=== PATIENT | female | born 1965 | race Caucasian/White ===

== ENCOUNTER 2020-12-30 20:10 | Inpatient (IN) | payer MEDICAID ==
[~2020-12-30] VITALS: Ht 162.6 cm; Wt 114.1 kg
[2020-12-30 23:15] VITALS: BP 138/82
--- NOTE | 2020-12-30 23:15 | NUR ---
received pt from [facility]. oriented to room and routine, received report by telephone from perlita OG, pT SOB, O2 12L N/C. WAITING FRO DR. ALEJO TO SEE PT. Addendum: 12/31/20 at 0201 by Jean Paul Sarah RN Amended: Links added.
--- NOTE | 2020-12-30 23:42 | NUR ---
Dr Sibley in room to assess pt. med rec done by LILIAN meier. waiting for orders Addendum: 12/30/20 at 2342 by Jean Paul Sarah RN Amended: Links added.
[2020-12-30] MEDS ORDERED: HYDR-3965 PO (23:43)
[2020-12-30] MEDS ORDERED: FURO-150 PO (23:43)
[2020-12-30] MEDS ORDERED: AMLO2.5T2 PEG (23:43)
[2020-12-30] MEDS ORDERED: LEVO125T PO (23:43)
[2020-12-30] MEDS ORDERED: POTA-197 PO (23:43)
[2020-12-30] MEDS ORDERED: potassium Cl 40MEQ/1/2NS 520ml 520 ML IV PRN ×2 (23:55)
[2020-12-30] MEDS ORDERED: potassium Cl 20 mEq SR tablet PO PRN ×2 (23:55)
[2020-12-30] MEDS ORDERED: magnesium hydroxide 30ml (MOM) UD suspension PO PRN (23:55)
[2020-12-30] MEDS ORDERED: acetaminophen 325mg tablet PO PRN (23:55)
[2020-12-30] MEDS ORDERED: ondansetron/PF 4mg/2ml inj IV PRN (23:55)
[2020-12-31] MEDS ORDERED: dexamethasone 4mg/ml inj IM SCH
[2020-12-31] MEDS: HYDROcodone/acetaminophen 5mg/325mg tablet PO PRN ×3 (01:15→19:36)
[2020-12-31] MEDS: dexamethasone 4mg/ml inj IV SCH ×2 (01:16→08:17)
[2020-12-31 02:05] VITALS: BP 135/80
--- NOTE | 2020-12-31 06:48 | NUR ---
Patient in room ORTHO 4020. I have received report from Karoline QUINTANA and had the opportunity to ask questions and assume patient care.
--- NOTE | 2020-12-31 06:49 | NUR ---
Problems reprioritized. Patient report given, questions answered & plan of care reviewed with LILIAN JIMENEZ. Addendum: 12/31/20 at 0649 by Jean Paul Sarah RN Amended: Links added.
[2020-12-31 06:50] VITALS: BP 137/83
[2020-12-31] MEDS ORDERED: potassium Cl 20 mEq SR tablet PO SCH (08:00)
[2020-12-31] MEDS ORDERED: dexamethasone 4mg/ml inj IV SCH ×2 (08:00→09:20)
[2020-12-31] MEDS ORDERED: heparin, porcine 5000 units/ml vial SQ SCH (08:00)
[2020-12-31] MEDS: K and/or MAG REPLACEMENT MC SCH ×2 (08:00→19:24)
[2020-12-31] MEDS: docusate sod 100mg capsule PO SCH ×2 (08:00→19:36)
[2020-12-31] MEDS: furosemide 20MG tablet PO SCH (08:17)
[2020-12-31] MEDS: levoTHYROXINE 125mcg tablet PO SCH (08:17)
[2020-12-31 08:35] LABS: BASOPHILS % (AUTO) 0.1 % (0-1); EOSINOPHILS % (AUTO) 0 % (0-6); HEMATOCRIT 39.7 % (35.0-45.0); HEMOGLOBIN 12.9 g/dl (12.0-16.0); LYMPHOCYTES # (AUTO) 0.4 X10'3 (1.1-4.8); LYMPHOCYTES % (AUTO) 13.2 % (21-51); MEAN CORPUSCULAR HEMOGLOBIN 25.4 PG (27.0-31.0); MEAN CORPUSCULAR HGB CONC 32.5 g/dL (33.0-36.5); MEAN CORPUSCULAR VOLUME 78.3 FL (78-98); MEAN PLATELET VOLUME 7.6 FL (7.4-10.4); MONOCYTES # (AUTO) 0.1 X10'3 (0-0.9); MONOCYTES % (AUTO) 3.1 % (2-12); NEUTROPHILS # (AUTO) 2.8 X10'3 (1.8-7.7); NEUTROPHILS % (AUTO) 83.6 % (42-75); PLATELET COUNT 185 X10'3 (140-440); RED BLOOD COUNT 5.08 X10'6 (4.20-5.60); RED CELL DISTRIBUTION WIDTH 19.3 % (11.5-14.5); WHITE BLOOD COUNT 3.4 X10'3 (4.5-11.0)
[2020-12-31 09:01] LABS: ALANINE AMINOTRANSFERASE 46 U/L (12-78); ALBUMIN 2.6 G/DL (3.4-5.0); ALBUMIN/GLOBULIN RATIO 0.5 (1.1-1.5); ALKALINE PHOSPHATASE 198 IU/L (46-116); ANION GAP 13 (8-16); ASPARTATE AMINO TRANSFERASE 90 U/L (10-37); BILIRUBIN,TOTAL 0.6 MG/DL (0.1-1.0); BLOOD UREA NITROGEN 11 MG/DL (7-18); BUN/CREATININE RATIO 17.7 (6.6-38.0); CALCIUM 8.4 MG/DL (8.5-10.1); CHLORIDE 103 MMOL/L (99-107); CREATININE 0.62 MG/DL (0.40-0.90); GLUCOSE 132 MG/DL (70-104); POTASSIUM 4.5 MMOL/L (3.5-5.1); SODIUM 140 MMOL/L (135-145); TOTAL CARBON DIOXIDE 23.7 MMOL/L (24-32); TOTAL PROTEIN 7.6 G/DL (6.4-8.2); eGFR > 90 ML/MIN
[2020-12-31 09:43] LABS: C-REACTIVE PROTEIN 6.96 MG/DL (0.0-0.5); LACTATE DEHYDROGENASE 444 U/L (81-234)
[2020-12-31 09:54] LABS: D-DIMER 0.97 MG/L FEU (0-0.50)
[2020-12-31 10:00] VITALS: BP 156/98
[2020-12-31] MEDS ORDERED: dexamethasone 6 MG in NS 50ml IV soln IV SCH (10:15)
[2020-12-31 10:26] LABS: ANISOCYTOSIS 2+; MICROCYTOSIS 1+; PLATELET ESTIMATE NORMAL
[2020-12-31 10:27] LABS: ELLIPTOCYTES FEW; SCHISTOCYTES FEW
--- NOTE | 2020-12-31 11:54 | NUR ---
Malnutrtition consult: Pt admitted w/ difficulty breathing x 2 weeks d/t Covid per EMR. Pt noted w/ decrease in appetite, pending PO trends this admit. No visible signs of wasting documented, no edema noted. No scaled wt available this admit or previous wt history. Pt does not meet minimum criteria for malnutrition at this time, will continue to monitor. Addendum: 12/31/20 at [address] Amended: Links added.
[2020-12-31] MEDS: amLODIPine 5mg tablet PO SCH (12:18)
[2020-12-31 14:00] VITALS: BP 119/79
--- NOTE | 2020-12-31 14:41 | NUR ---
Bladder scan revealed 174 mls in bladder, patient has not voided in 12 hours. Discussed with hospitalist and received orders for normal saline 100mls/hr.
[2020-12-31] MEDS: normal saline 1000ml 1,000 ML IV SCH (14:45)
[2020-12-31] MEDS ORDERED: ALBUTEROL INHALER 1 PUFF/90 MCG INHALER IH PRN (17:15)
[2020-12-31 18:00] VITALS: BP 129/78
--- NOTE | 2020-12-31 18:38 | NUR ---
Problems reprioritized. Patient report given, questions answered & plan of care reviewed with María QUINTANA.
--- NOTE | 2020-12-31 18:47 | NUR ---
Patient in room ORTHO 4020. I have received report from Petra QUINTANA and had the opportunity to ask questions and assume patient care.
[2020-12-31] MEDS: enoxaparin 50mg/0.5ml (from 3ml vial) syringe SUBCUT SCH (19:37)
[2020-12-31] MEDS: dexamethasone inj 6 MG in normal saline 50ml IV soln 50 ML IV SCH (19:38)
[2020-12-31] MEDS: mag hydrox/Alum hydrox/simeth 30ml oral suspension PO PRN (20:03)
[2020-12-31 22:00] VITALS: BP 120/72
[2021-01-01] MEDS: normal saline 1000ml 1,000 ML IV SCH ×3 (01:01→20:45)
[2021-01-01 02:00] VITALS: BP 141/85
--- NOTE | 2021-01-01 06:08 | NUR ---
Problems reprioritized. Patient report given, questions answered & plan of care reviewed with Petra QUINTNAA.
--- NOTE | 2021-01-01 06:16 | NUR ---
Patient in room ORTHO 4020. I have received report from María QUINTANA and had the opportunity to ask questions and assume patient care.
[2021-01-01 06:21] VITALS: BP 135/80
[2021-01-01] MEDS: docusate sod 100mg capsule PO SCH ×2 (08:00→19:52)
[2021-01-01] MEDS: K and/or MAG REPLACEMENT MC SCH ×2 (08:00→19:55)
[2021-01-01] MEDS: enoxaparin 50mg/0.5ml (from 3ml vial) syringe SUBCUT SCH ×2 (08:31→19:53)
[2021-01-01] MEDS: furosemide 20MG tablet PO SCH (08:31)
[2021-01-01] MEDS: levoTHYROXINE 125mcg tablet PO SCH (08:31)
[2021-01-01] MEDS: HYDROcodone/acetaminophen 5mg/325mg tablet PO PRN (08:31)
[2021-01-01] MEDS: dexamethasone inj 6 MG in normal saline 50ml IV soln 50 ML IV SCH ×2 (08:31→19:52)
[2021-01-01 08:45] LABS: BASOPHILS % (AUTO) 0 % (0-1); EOSINOPHILS % (AUTO) 0 % (0-6); HEMATOCRIT 39.6 % (35.0-45.0); HEMOGLOBIN 12.4 g/dl (12.0-16.0); LYMPHOCYTES # (AUTO) 0.6 X10'3 (1.1-4.8); LYMPHOCYTES % (AUTO) 4.9 % (21-51); MEAN CORPUSCULAR HEMOGLOBIN 25.1 PG (27.0-31.0); MEAN CORPUSCULAR HGB CONC 31.2 g/dL (33.0-36.5); MEAN CORPUSCULAR VOLUME 80.5 FL (78-98); MEAN PLATELET VOLUME 7.7 FL (7.4-10.4); MONOCYTES # (AUTO) 0.5 X10'3 (0-0.9); MONOCYTES % (AUTO) 4.3 % (2-12); NEUTROPHILS # (AUTO) 11.4 X10'3 (1.8-7.7); NEUTROPHILS % (AUTO) 90.8 % (42-75); PLATELET COUNT 210 X10'3 (140-440); RED BLOOD COUNT 4.92 X10'6 (4.20-5.60); WHITE BLOOD COUNT 12.5 X10'3 (4.5-11.0)
[2021-01-01 09:16] LABS: ALANINE AMINOTRANSFERASE 36 U/L (12-78); ALBUMIN 2.4 G/DL (3.4-5.0); ALBUMIN/GLOBULIN RATIO 0.5 (1.1-1.5); ALKALINE PHOSPHATASE 180 IU/L (46-116); ANION GAP 9 (8-16); ASPARTATE AMINO TRANSFERASE 75 U/L (10-37); BILIRUBIN,TOTAL 0.4 MG/DL (0.1-1.0); BLOOD UREA NITROGEN 12 MG/DL (7-18); BUN/CREATININE RATIO 17.9 (6.6-38.0); C-REACTIVE PROTEIN 2.49 MG/DL (0.0-0.5); CHLORIDE 104 MMOL/L (99-107); CREATININE 0.67 MG/DL (0.40-0.90); GLUCOSE 163 MG/DL (70-104); POTASSIUM 4.7 MMOL/L (3.5-5.1); SODIUM 137 MMOL/L (135-145); TOTAL CARBON DIOXIDE 23.7 MMOL/L (24-32); TOTAL PROTEIN 7.1 G/DL (6.4-8.2); eGFR > 90 ML/MIN
[2021-01-01 09:17] LABS: D-DIMER 0.95 MG/L FEU (0-0.50)
[2021-01-01 10:00] VITALS: BP 122/73
[2021-01-01] MEDS: amLODIPine 5mg tablet PO SCH (10:23)
[2021-01-01 12:57] LABS: PLATELET ESTIMATE NORMAL
[2021-01-01 12:59] LABS: ANISOCYTOSIS 2+; POLYCHROMASIA 1+
[2021-01-01 13:00] LABS: BURR CELLS 1+; ELLIPTOCYTES 1+; TARGET CELLS FEW
[2021-01-01 14:00] VITALS: BP 122/79
[2021-01-01] MEDS: mag hydrox/Alum hydrox/simeth 30ml oral suspension PO PRN ×2 (17:15→22:24)
[2021-01-01 18:00] VITALS: BP 129/70
--- NOTE | 2021-01-01 18:29 | NUR ---
Problems reprioritized. Patient report given, questions answered & plan of care reviewed with Marija Dutton RN.
--- NOTE | 2021-01-01 18:30 | NUR ---
Patient in room ORTHO 4020. I have received report from BARBARA QUINTANA and had the opportunity to ask questions and assume patient care.
[2021-01-01 22:00] VITALS: BP 136/87
[2021-01-02 02:00] VITALS: BP 140/91
[2021-01-02] MEDS: HYDROcodone/acetaminophen 5mg/325mg tablet PO PRN ×3 (02:06→21:56)
[2021-01-02] MEDS: normal saline 1000ml 1,000 ML IV SCH ×2 (02:08→13:08)
[2021-01-02 06:00] VITALS: BP 146/86
--- NOTE | 2021-01-02 06:33 | NUR ---
Problems reprioritized. Patient report given, questions answered & plan of care reviewed with BREANNE QUINTANA.
--- NOTE | 2021-01-02 07:02 | NUR ---
Patient in room ORTHO 4020. I have received report from LILIAN Nino and had the opportunity to ask questions and assume patient care.
[2021-01-02] MEDS: K and/or MAG REPLACEMENT MC SCH ×2 (08:00→20:00)
[2021-01-02 08:38] LABS: BASOPHILS % (AUTO) 0.1 % (0-1); EOSINOPHILS % (AUTO) 0 % (0-6); HEMATOCRIT 37.1 % (35.0-45.0); HEMOGLOBIN 11.5 g/dl (12.0-16.0); LYMPHOCYTES # (AUTO) 0.5 X10'3 (1.1-4.8); LYMPHOCYTES % (AUTO) 5.2 % (21-51); MEAN CORPUSCULAR VOLUME 80.6 FL (78-98); MEAN PLATELET VOLUME 7.9 FL (7.4-10.4); MONOCYTES # (AUTO) 0.5 X10'3 (0-0.9); NEUTROPHILS # (AUTO) 9.4 X10'3 (1.8-7.7); NEUTROPHILS % (AUTO) 89.7 % (42-75); PLATELET COUNT 208 X10'3 (140-440); RED CELL DISTRIBUTION WIDTH 20.1 % (11.5-14.5); WHITE BLOOD COUNT 10.5 X10'3 (4.5-11.0)
[2021-01-02 09:15] LABS: D-DIMER 0.76 MG/L FEU (0-0.50)
[2021-01-02 09:18] LABS: ALANINE AMINOTRANSFERASE 37 U/L (12-78); ALBUMIN 2.4 G/DL (3.4-5.0); ALBUMIN/GLOBULIN RATIO 0.6 (1.1-1.5); ALKALINE PHOSPHATASE 163 IU/L (46-116); ANION GAP 8 (8-16); ASPARTATE AMINO TRANSFERASE 60 U/L (10-37); BILIRUBIN,TOTAL 0.4 MG/DL (0.1-1.0); BLOOD UREA NITROGEN 13 MG/DL (7-18); BUN/CREATININE RATIO 22.8 (6.6-38.0); CALCIUM 7.9 MG/DL (8.5-10.1); CHLORIDE 107 MMOL/L (99-107); CREATININE 0.57 MG/DL (0.40-0.90); GLUCOSE 101 MG/DL (70-104); POTASSIUM 4.8 MMOL/L (3.5-5.1); SODIUM 141 MMOL/L (135-145); TOTAL CARBON DIOXIDE 25.8 MMOL/L (24-32); TOTAL PROTEIN 6.5 G/DL (6.4-8.2); eGFR > 90 ML/MIN
[2021-01-02] MEDS: levoTHYROXINE 125mcg tablet PO SCH (09:39)
[2021-01-02] MEDS: docusate sod 100mg capsule PO SCH ×2 (09:39→21:17)
[2021-01-02] MEDS: amLODIPine 5mg tablet PO SCH (09:39)
[2021-01-02] MEDS: dexamethasone inj 6 MG in normal saline 50ml IV soln 50 ML IV SCH ×2 (09:39→21:16)
[2021-01-02] MEDS: enoxaparin 50mg/0.5ml (from 3ml vial) syringe SUBCUT SCH ×2 (09:40→22:03)
[2021-01-02] MEDS: furosemide 20MG tablet PO SCH (09:40)
[2021-01-02] MEDS: mag hydrox/Alum hydrox/simeth 30ml oral suspension PO PRN (09:50)
[2021-01-02 10:00] VITALS: BP 140/86
[2021-01-02 14:00] VITALS: BP 129/80
[2021-01-02 14:14] LABS: ANISOCYTOSIS 3+; BURR CELLS FEW; ELLIPTOCYTES FEW; HYPOCHROMASIA 1+; PLATELET ESTIMATE NORMAL; POLYCHROMASIA FEW; TEAR DROP CELLS FEW
[2021-01-02 18:00] VITALS: BP 135/71
--- NOTE | 2021-01-02 18:54 | NUR ---
Patient in room ORTHO 4017. I have received report from Lo QUINTANA and had the opportunity to ask questions and assume patient care. Addendum: 01/02/21 at 1857 by Yanet Beverly RN Amended: Links added.
--- NOTE | 2021-01-02 18:54 | NUR ---
Problems reprioritized. Patient report given, questions answered & plan of care reviewed with LILIAN Holt.
--- NOTE | 2021-01-02 21:00 | NUR ---
Upon return on my 1st break, charge nurse reported pt. was experiencing SOB and anxiety with o2 of 88% on 15LHF n/c. Paged RT for evaluation of pt's breathing status. Additionally, charge nurse had paged the provider for recommendations; the provider gave charge nurse orders for ABGs. Pt's condition status stabilized with o2 saturation bouncing to 95-96% on 15L HF via n/c. RT obtained ABGs and also administered a breathing treatment as ordered which was effective AEB pt. reporting c/o mild SOB. Non rebreather in place at this time. Call light within reach and bed in the low position. Addendum: 01/03/21 at 0042 by Yanet Beverly RN Amended: Links added.
--- NOTE | 2021-01-02 21:00 | NUR ---
Please omit no previously documentation of no change in condition at this hour. Please see note! Addendum: 01/03/21 at 0517 by Yanet Beverly RN Amended: Links added.
[2021-01-02 21:49] LABS: ABG BASE EXCESS 3.9 mmol/L (-2.0-2.0); ABG HCO3 28.7 mmol/L (22.0-26.0); ABG OXYGEN SATURATION 89.1 % (94-97); ABG PCO2 (T) 43.8 mmHg (32.0-45.0); ABG PO2 (T) 56.3 mmHg (75.0-100.0); ALLEN'S TEST POSITIVE; FCOHb 0.4 % (0.0-3.9); FLOW 30 L/min; FMetHb 0.1 % (0.0-1.5); FO2Hb 88.7 % (94-97); TOTAL HEMOGLOBIN 12.7 G/dl (12.0-16.0)
[2021-01-02 22:00] VITALS: BP 143/93
[2021-01-03 02:00] VITALS: BP 124/77
[2021-01-03] MEDS: normal saline 1000ml 1,000 ML IV SCH (03:07)
[2021-01-03 06:00] VITALS: BP 128/71
--- NOTE | 2021-01-03 06:00 | NUR ---
Problems reprioritized. Patient report given, questions answered & plan of care reviewed with Nini QUINTANA. Addendum: 01/03/21 at 0730 by Yanet Beverly RN Amended: Links added.
--- NOTE | 2021-01-03 06:40 | NUR ---
Patient in room ORTHO 4020B. I have received report from LILIAN Holt and had the opportunity to ask questions and assume patient care.
[2021-01-03] MEDS: K and/or MAG REPLACEMENT MC SCH ×2 (08:00→20:00)
[2021-01-03] MEDS: docusate sod 100mg capsule PO SCH ×2 (08:00→21:05)
[2021-01-03 08:10] LABS: BASOPHILS % (AUTO) 0 % (0-1); EOSINOPHILS % (AUTO) 0 % (0-6); HEMATOCRIT 38.3 % (35.0-45.0); HEMOGLOBIN 12.4 g/dl (12.0-16.0); LYMPHOCYTES # (AUTO) 0.5 X10'3 (1.1-4.8); LYMPHOCYTES % (AUTO) 5.5 % (21-51); MEAN CORPUSCULAR HEMOGLOBIN 25.4 PG (27.0-31.0); MEAN CORPUSCULAR HGB CONC 32.3 g/dL (33.0-36.5); MEAN CORPUSCULAR VOLUME 78.7 FL (78-98); MEAN PLATELET VOLUME 7.5 FL (7.4-10.4); MONOCYTES # (AUTO) 0.4 X10'3 (0-0.9); MONOCYTES % (AUTO) 4.5 % (2-12); NEUTROPHILS # (AUTO) 8.2 X10'3 (1.8-7.7); PLATELET COUNT 217 X10'3 (140-440); RED BLOOD COUNT 4.87 X10'6 (4.20-5.60); RED CELL DISTRIBUTION WIDTH 19.6 % (11.5-14.5); WHITE BLOOD COUNT 9.2 X10'3 (4.5-11.0)
[2021-01-03 08:26] LABS: ALANINE AMINOTRANSFERASE 49 U/L (12-78); ALBUMIN 2.7 G/DL (3.4-5.0); ALBUMIN/GLOBULIN RATIO 0.6 (1.1-1.5); ALKALINE PHOSPHATASE 192 IU/L (46-116); ANION GAP 8 (8-16); ASPARTATE AMINO TRANSFERASE 72 U/L (10-37); BILIRUBIN,TOTAL 0.6 MG/DL (0.1-1.0); BLOOD UREA NITROGEN 10 MG/DL (7-18); BUN/CREATININE RATIO 16.9 (6.6-38.0); C-REACTIVE PROTEIN 3.28 MG/DL (0.0-0.5); CALCIUM 8.3 MG/DL (8.5-10.1); CHLORIDE 101 MMOL/L (99-107); CREATININE 0.59 MG/DL (0.40-0.90); GLUCOSE 106 MG/DL (70-104); POTASSIUM 4.1 MMOL/L (3.5-5.1); SODIUM 138 MMOL/L (135-145); TOTAL CARBON DIOXIDE 28.8 MMOL/L (24-32); TOTAL PROTEIN 7.5 G/DL (6.4-8.2); eGFR > 90 ML/MIN
[2021-01-03] MEDS: dexamethasone inj 6 MG in normal saline 50ml IV soln 50 ML IV SCH ×2 (08:28→21:04)
[2021-01-03] MEDS: amLODIPine 5mg tablet PO SCH (08:30)
[2021-01-03] MEDS: furosemide 20MG tablet PO SCH (08:30)
[2021-01-03] MEDS: levoTHYROXINE 125mcg tablet PO SCH (08:30)
[2021-01-03] MEDS: enoxaparin 50mg/0.5ml (from 3ml vial) syringe SUBCUT SCH ×2 (08:32→21:05)
[2021-01-03 08:58] LABS: D-DIMER 1.43 MG/L FEU (0-0.50)
--- NOTE | 2021-01-03 10:19 | NUR ---
Page Sent PAGER ID: [phone] MESSAGE: BARBI [phone]-RE: MATEO RILEY [phone]...PT HAVING ANXIETY WITH O2 DESAT, CAN I GET AN ORDER FOR ANTI-ANXIETY MED?
[2021-01-03] MEDS: LORazepam 0.5 MG tablet PO PRN (11:07)
[2021-01-03 11:23] VITALS: BP 141/76
[2021-01-03 18:00] VITALS: BP 159/101
--- NOTE | 2021-01-03 18:16 | NUR ---
Problems reprioritized. Patient report given, questions answered & plan of care reviewed with LILIAN DOWNEY.
--- NOTE | 2021-01-03 18:20 | NUR ---
Patient in room ORTHO 4020. I have received report from Nini QUINTANA and had the opportunity to ask questions and assume patient care.
[2021-01-03] MEDS: HYDROcodone/acetaminophen 5mg/325mg tablet PO PRN (21:47)
[2021-01-03 22:00] VITALS: BP 142/84
[2021-01-04] MEDS: normal saline 1000ml 1,000 ML IV SCH ×4 (00:26→18:45)
[2021-01-04 02:00] VITALS: BP 147/87
--- NOTE | 2021-01-04 07:06 | NUR ---
Report given to Ximena QUINTANA
[2021-01-04] MEDS: enoxaparin 50mg/0.5ml (from 3ml vial) syringe SUBCUT SCH ×2 (08:00→21:38)
[2021-01-04] MEDS: K and/or MAG REPLACEMENT MC SCH ×2 (08:00→20:00)
[2021-01-04] MEDS: dexamethasone inj 6 MG in normal saline 50ml IV soln 50 ML IV SCH (08:06)
[2021-01-04] MEDS: levoTHYROXINE 125mcg tablet PO SCH (08:07)
[2021-01-04] MEDS: furosemide 20MG tablet PO SCH (08:07)
[2021-01-04] MEDS: amLODIPine 5mg tablet PO SCH (08:07)
[2021-01-04 08:17] LABS: BASOPHILS % (AUTO) 0.1 % (0-1); EOSINOPHILS % (AUTO) 0 % (0-6); HEMATOCRIT 36.6 % (35.0-45.0); HEMOGLOBIN 11.7 g/dl (12.0-16.0); LYMPHOCYTES # (AUTO) 0.4 X10'3 (1.1-4.8); MEAN CORPUSCULAR HEMOGLOBIN 25.4 PG (27.0-31.0); MEAN CORPUSCULAR HGB CONC 31.9 g/dL (33.0-36.5); MEAN CORPUSCULAR VOLUME 79.6 FL (78-98); MEAN PLATELET VOLUME 7.7 FL (7.4-10.4); MONOCYTES # (AUTO) 0.4 X10'3 (0-0.9); MONOCYTES % (AUTO) 4.7 % (2-12); NEUTROPHILS # (AUTO) 8.5 X10'3 (1.8-7.7); NEUTROPHILS % (AUTO) 91.2 % (42-75); PLATELET COUNT 184 X10'3 (140-440); RED CELL DISTRIBUTION WIDTH 19.4 % (11.5-14.5); WHITE BLOOD COUNT 9.4 X10'3 (4.5-11.0)
[2021-01-04] MEDS: docusate sod 100mg capsule PO SCH ×2 (08:26→20:00)
[2021-01-04 08:42] LABS: ALANINE AMINOTRANSFERASE 47 U/L (12-78); ALBUMIN 2.3 G/DL (3.4-5.0); ALBUMIN/GLOBULIN RATIO 0.5 (1.1-1.5); ALKALINE PHOSPHATASE 189 IU/L (46-116); ANION GAP 6 (8-16); ASPARTATE AMINO TRANSFERASE 73 U/L (10-37); BILIRUBIN,TOTAL 0.6 MG/DL (0.1-1.0); BLOOD UREA NITROGEN 10 MG/DL (7-18); BUN/CREATININE RATIO 20.8 (6.6-38.0); C-REACTIVE PROTEIN 6.69 MG/DL (0.0-0.5); CALCIUM 7.7 MG/DL (8.5-10.1); CHLORIDE 103 MMOL/L (99-107); CREATININE 0.48 MG/DL (0.40-0.90); GLUCOSE 109 MG/DL (70-104); POTASSIUM 4.1 MMOL/L (3.5-5.1); SODIUM 137 MMOL/L (135-145); TOTAL PROTEIN 6.8 G/DL (6.4-8.2); eGFR > 90 ML/MIN
[2021-01-04] MEDS: LORazepam 0.5 MG tablet PO PRN ×2 (09:04→16:06)
[2021-01-04] MEDS: HYDROcodone/acetaminophen 5mg/325mg tablet PO PRN (09:04)
--- NOTE | 2021-01-04 13:05 | NUR ---
Pt currently sitting up in bed asleep. Alert and oriented. VS WNL. Pt currently on 15 L High flow/non-rebreather. Current sat 90%. Pt has Left AC IV. 0.9% NS infusing at this time. Pt complained of pain around 10:45 am. Pain medication administered and found to be effective. Pt will continue to be monitored.
--- NOTE | 2021-01-04 14:13 | NUR ---
Initial: Pt admit DX acute respiratory failure, COVID-19 PNA, SIRS, HTN, hypothyroidism, and anxiety per MD note. Hx R face bells palsy per EMR. PO fluctuates ~50-75% avg meals w/ 100% breakfast this AM meeting minimum kcal needs but partially meeting estimated protein needs on regular diet. RD recommends ensure high protein BIDLD to assist w/ protein needs; DO notified. Likely able to tolerate ONS on 15L high flow at this time per EMR. LBM 01/04 receiving routine colace. Will continue to monitor. Rec: 1. continue regular diet; encourage PO 2. ensure high protein BIDLD; pending DO notification in EMR 3. routine bowel care 4. weekly wts Addendum: 01/04/21 at [address] Amended: Links added.
[2021-01-04 18:00] VITALS: BP 150/93
--- NOTE | 2021-01-04 19:08 | NUR ---
Pt found on the floor at shift change. Pt was screaming help me. Staff went to assist. Pt attempted to get out of bed by herself. Earlier around 1615 pm patient asked this nurse if she could lay on the floor and patient was provided education on the importance of asking for assistance and not laying on the floor. Patient remained in floor until oxygen saturation was elevated to above 91%. Pt repositioned back in bed with 15 Liters high flow oxygen in place. VS 121/57, P64, T. 99.4,R-22. Pt denies pain at this time. MD notified by charge nurse and orders given for a CT scan stat. Pt also placed on bed alarm. Pt currently lying in bed watching television. Will continue to monitor.
--- NOTE | 2021-01-04 19:10 | NUR ---
Patient in room ORTHO 4020. I have received report from Ximena QUINTANA and had the opportunity to ask questions and assume patient care.
--- NOTE | 2021-01-04 19:40 | NUR ---
LEONCIO, Magda Muller, contacted via telephone around 7:30 pm regarding the fall incident. RN reviewed the events with RP and notified her of the CT scan ordered by MD. RP verified understanding and thanked RN for call.
--- NOTE | 2021-01-04 19:50 | NUR ---
Patient taken down For CT of head. Respiratory accompanied as patients sats unstable ranging from low 60's to 90's.
--- NOTE | 2021-01-04 20:00 | NUR ---
Patient back to room from having CT. Patient stable. On 15 L hi flow and 15 non-rebreather. Currently at 86% and rising.
[2021-01-04 22:00] VITALS: BP 141/95
[2021-01-05] VITALS (8 sets, daily range): BP systolic 91–182; BP diastolic 49–107
[2021-01-05] MEDS ORDERED: dexamethasone inj 6 MG in normal saline 50ml IV soln 50 ML IV SCH (00:54)
[2021-01-05] MEDS: dexamethasone inj 6 MG in normal saline 50ml IV soln 50 ML IV SCH (01:11)
[2021-01-05] MEDS: LORazepam 0.5 MG tablet PO PRN (02:36)
[2021-01-05] MEDS: normal saline 1000ml 1,000 ML IV SCH ×2 (04:45→09:19)
--- NOTE | 2021-01-05 06:30 | NUR ---
Patient report given to Reyna QUINTANA. Rapid report just been called d/t decrease o2 sats.
--- NOTE | 2021-01-05 07:02 | NUR ---
PAGER ID: [phone] MESSAGE: Dr. Mckeon they paged a rapid on Rosangela Erwin she was in 60's, RT putting on Bi-pap, do you want her on tele, she is not on tele. Thanks, Lulu [phone]
--- NOTE | 2021-01-05 07:08 | NUR ---
Patient in room ORTHO 4020B. I have received report from LILIAN DOWNEY and had the opportunity to ask questions and assume patient care.
[2021-01-05 07:09] LABS: ABG BASE EXCESS 2.2 mmol/L (-2.0-2.0); ABG HCO3 25.6 mmol/L (22.0-26.0); ABG OXYGEN SATURATION 84.4 % (94-97); ABG PCO2 (T) 35.7 mmHg (32.0-45.0); ALLEN'S TEST POSITIVE; FLOW 15 L/min; FMetHb 0.1 % (0.0-1.5); FO2Hb 83.5 % (94-97); TOTAL HEMOGLOBIN 12.5 G/dl (12.0-16.0)
[2021-01-05] MEDS: K and/or MAG REPLACEMENT MC SCH ×2 (08:00→21:42)
[2021-01-05] MEDS ORDERED: furosemide 40mg/4ml inj IV ONE (08:25)
[2021-01-05 09:03] LABS: BASOPHILS # (AUTO) 0.1 X10'3 (0-0.2); BASOPHILS % (AUTO) 0.9 % (0-1); EOSINOPHILS % (AUTO) 0 % (0-6); HEMATOCRIT 36.6 % (35.0-45.0); HEMOGLOBIN 11.9 g/dl (12.0-16.0); LYMPHOCYTES # (AUTO) 0.3 X10'3 (1.1-4.8); LYMPHOCYTES % (AUTO) 2.6 % (21-51); MEAN CORPUSCULAR HEMOGLOBIN 25.5 PG (27.0-31.0); MEAN CORPUSCULAR HGB CONC 32.5 g/dL (33.0-36.5); MEAN CORPUSCULAR VOLUME 78.4 FL (78-98); MEAN PLATELET VOLUME 7.6 FL (7.4-10.4); MONOCYTES # (AUTO) 0.3 X10'3 (0-0.9); NEUTROPHILS # (AUTO) 10.2 X10'3 (1.8-7.7); NEUTROPHILS % (AUTO) 93.5 % (42-75); PLATELET COUNT 211 X10'3 (140-440); RED BLOOD COUNT 4.66 X10'6 (4.20-5.60); RED CELL DISTRIBUTION WIDTH 19.3 % (11.5-14.5); WHITE BLOOD COUNT 10.9 X10'3 (4.5-11.0)
[2021-01-05] MEDS: levoTHYROXINE 75mcg tablet PO SCH (09:19)
[2021-01-05] MEDS: furosemide 20MG tablet PO SCH (09:19)
[2021-01-05] MEDS: amLODIPine 5mg tablet PO SCH (09:20)
[2021-01-05] MEDS: docusate sod 100mg capsule PO SCH ×2 (09:20→21:43)
[2021-01-05 09:23] LABS: ALANINE AMINOTRANSFERASE 49 U/L (12-78); ALBUMIN 2.3 G/DL (3.4-5.0); ALBUMIN/GLOBULIN RATIO 0.5 (1.1-1.5); ALKALINE PHOSPHATASE 229 IU/L (46-116); ANION GAP 5 (8-16); ASPARTATE AMINO TRANSFERASE 76 U/L (10-37); BILIRUBIN,TOTAL 0.9 MG/DL (0.1-1.0); BLOOD UREA NITROGEN 10 MG/DL (7-18); BUN/CREATININE RATIO 16.7 (6.6-38.0); C-REACTIVE PROTEIN 13.36 MG/DL (0.0-0.5); CALCIUM 7.9 MG/DL (8.5-10.1); CHLORIDE 101 MMOL/L (99-107); GLUCOSE 135 MG/DL (70-104); POTASSIUM 3.9 MMOL/L (3.5-5.1); SODIUM 134 MMOL/L (135-145); eGFR > 90 ML/MIN
--- NOTE | 2021-01-05 10:15 | NUR ---
Page Sent PAGER ID: [phone] MESSAGE: [facility] 1913 RE: MATEO RILEY [id number] CAN I GET AN ORDER FOR IV ATIVAN FOR PT PLEASE? ANOTHER RAPID WAS CALLED ON PT ABOUT 15 MIN AGO FOR PT SATTING IN 40S AND 50S
[2021-01-05] MEDS ORDERED: LORazepam 2 mg/ml vial ONE (10:20)
[2021-01-05] MEDS: LORazepam 2 mg/ml vial IV PRN ×3 (10:24→19:40)
[2021-01-05] MEDS: dexamethasone inj 8 MG in normal saline 50ml IV soln 50 ML IV SCH ×2 (10:24→21:42)
[2021-01-05 10:40] LABS: PLATELET ESTIMATE NORMAL; TOTAL CELLS COUNTED 100
[2021-01-05] MEDS ORDERED: TOCILIZUMAB 80MG/4 ML INJ. 800 MG in normal saline 100ml IV soln 60 ML IV ONE (10:40)
[2021-01-05 10:41] LABS: ANISOCYTOSIS 2+; MICROCYTOSIS 1+; POLYCHROMASIA FEW; TARGET CELLS FEW; TEAR DROP CELLS FEW
[2021-01-05 12:32] LABS: ABG BASE EXCESS 3.5 mmol/L (-2.0-2.0); ABG OXYGEN SATURATION 88.6 % (94-97); ABG PCO2 (T) 37.2 mmHg (32.0-45.0); ABG PO2 (T) 57.3 mmHg (75.0-100.0); ALLEN'S TEST POSITIVE; FCOHb 1.2 % (0.0-3.9); FMetHb 0.3 % (0.0-1.5); FO2Hb 87.3 % (94-97); TOTAL HEMOGLOBIN 12.6 G/dl (12.0-16.0)
[2021-01-05] MEDS: enoxaparin 50mg/0.5ml (from 3ml vial) syringe SUBCUT SCH (14:18)
[2021-01-05] MEDS: cefepime 2g/NS 100ml ADVANTAGE 100 ML IV SCH (16:41)
[2021-01-05] MEDS: vancomycin/NS 1 GM ADD-VANTAGE 250 ML IV SCH (17:28)
--- NOTE | 2021-01-05 18:30 | NUR ---
Patient in room [facility] 2013. I have received report from Reyna QUINTANA and had the opportunity to ask questions and assume patient care. Addendum: 01/06/21 at 0039 by Jaelyn Gunter RN This was prior to transfer from [facility] to [facility].
--- NOTE | 2021-01-05 18:45 | NUR ---
1800 VS were not done d/t patient being agitated. Sitter in room and trying to encourage patient to keep Bi-pap mask on at is time.
--- NOTE | 2021-01-05 19:40 | NUR ---
Around 1940 patient given ativan for severe agitation also restraints applied as patient had pulled off her mask and thrashing around in the bed. Patient's sats were dropping fast going into sixties. RT at bedside trying to help with bi pap mask. Patient very pale, unable to find carotid pulse, BUE flaccid, paged for usha porter. RT assisting with ambu bag. Usha porter team arrived, patient had ROSC. MD intubated patient as still in respiratory failure. After this, patient was transferred down to CICU. Report given to receiving RN as well as pt's belongings.
[2021-01-05] MEDS ORDERED: midazolam 1 mg/ML 2ml injection ONE (19:53)
--- NOTE | 2021-01-05 20:20 | NUR ---
Patient was taken down to [facility]. Report was given to Mariah QUINTANA.
--- NOTE | 2021-01-05 21:16 | NUR ---
Called daughter Jeanine to inform her that her mum is now in CICU d/t low oxygen sats. Addendum: 01/05/21 at 2117 by Jaelyn Gunter RN Information received well
--- NOTE | 2021-01-05 21:17 | NUR ---
Called Cornell Muller (SO) and informed also that pt. now in CICU. He seemed angry that this has happended, stating "if you had let her have visitors this would not have happened" . Informed him that patient had been verbalizing that she wanted to and would not keep her mask on becoming more agitated, and that this was a necessary step in order to help the patient as oxygen levels getting really low.
[2021-01-05] MEDS: propofol 1000mg/100ml bottle 100 ML IV SCH (21:42)
--- NOTE | 2021-01-05 21:50 | NUR ---
Purvi blue call around 1940 for respiratory arrest possible loss of pulse. When I arrived to the bedside the pt, who was being bagged by RT Pinedo, was yelling and moving all 4 extremities The code team and Dr. Solis were at the bedside. The pt was given 40mg Etomidate and Dr. Thrasher intubated the pt, 1st past success, with an 7.0 cuffed ET tube. After pt was intubated Dr. Thrasher ordered 100mg rocuronium given along with 4mg versed. Dr. Thrasher also placed an oral-gastric tube at that time. Both tubes were verified by x-ray. While pt was packaged to transfer to the CICU I received report from Jaelyn QUINTANA. 2009 pt transferred from Ortho bed to CICU bed 2012 and placed on the vent. Pt also placed on our monitor at that time. Both PIVs were not patent and leaking. New PIV started and sedation started while Dr. Kwon was doing the Tele visit. Khris MACHUCA was at the bedside and adjust the vent to the settings Dr. Kwon ordered.
[2021-01-05 22:22] LABS: ABG BASE EXCESS -3.1 mmol/L (-2.0-2.0); ABG HCO3 25.4 mmol/L (22.0-26.0); ABG OXYGEN SATURATION 93.4 % (94-97); ABG PCO2 (T) 60.7 mmHg (32.0-45.0); ABG PO2 (T) 81.9 mmHg (75.0-100.0); ALLEN'S TEST Modified; FCOHb 1.2 % (0.0-3.9); FMetHb 0.1 % (0.0-1.5); FO2Hb 92.2 % (94-97); PATIENT TEMPERATURE 36.5; TIDAL VOLUME 350 mL; TOTAL HEMOGLOBIN 12.7 G/dl (12.0-16.0)
[2021-01-05 22:24] LABS: TRIGLYCERIDES 115 MG/DL (20-135); TROPONIN I < 0.04 NG/ML (0.0-0.05)
--- NOTE | 2021-01-05 23:10 | NUR ---
Pt tolerating vent well. She does wake with painful stimuli and pull away but is not following commands at this time. Pt also has a strong cough with thick creamy sputum. Propofol drip infusing as ordered for ventilator synchrony.
[2021-01-06] VITALS (24 sets, daily range): BP systolic 90–117; BP diastolic 44–69
[2021-01-06] MEDS: propofol 1000mg/100ml bottle 100 ML IV SCH ×7 (00:08→21:11)
[2021-01-06] MEDS: cefepime 2g/NS 100ml ADVANTAGE 100 ML IV SCH ×4 (00:10→23:35)
[2021-01-06] MEDS: normal saline 1000ml 1,000 ML IV SCH ×3 (00:45→20:46)
[2021-01-06] MEDS: vancomycin/NS 1 GM ADD-VANTAGE 250 ML IV SCH ×2 (02:12→14:20)
[2021-01-06 02:59] LABS: ABG HCO3 28.3 mmol/L (22.0-26.0); ABG PCO2 (T) 45.5 mmHg (32.0-45.0); ABG PO2 (T) 69.8 mmHg (75.0-100.0); ALLEN'S TEST Modified; FCOHb 0.6 % (0.0-3.9); FMetHb 0.1 % (0.0-1.5); FO2Hb 93.3 % (94-97); PATIENT TEMPERATURE 36.6; TIDAL VOLUME 618 mL; TOTAL HEMOGLOBIN 11.4 G/dl (12.0-16.0)
--- NOTE | 2021-01-06 05:34 | NUR ---
Placed pt on back for morning chest x-ray. Suctioned and cleaned mouth. Pt tolerating vent well. Appears to be resting comfortably.
[2021-01-06 06:07] LABS: BASOPHILS # (AUTO) 0.2 X10'3 (0-0.2); BASOPHILS % (AUTO) 1.8 % (0-1); EOSINOPHILS % (AUTO) 0 % (0-6); HEMATOCRIT 35.3 % (35.0-45.0); HEMOGLOBIN 11.1 g/dl (12.0-16.0); LYMPHOCYTES # (AUTO) 0.4 X10'3 (1.1-4.8); LYMPHOCYTES % (AUTO) 3.9 % (21-51); MEAN CORPUSCULAR HEMOGLOBIN 24.9 PG (27.0-31.0); MEAN CORPUSCULAR HGB CONC 31.4 g/dL (33.0-36.5); MEAN CORPUSCULAR VOLUME 79.5 FL (78-98); MEAN PLATELET VOLUME 7.6 FL (7.4-10.4); MONOCYTES # (AUTO) 0.6 X10'3 (0-0.9); MONOCYTES % (AUTO) 5.6 % (2-12); NEUTROPHILS # (AUTO) 10.1 X10'3 (1.8-7.7); NEUTROPHILS % (AUTO) 88.7 % (42-75); PLATELET COUNT 207 X10'3 (140-440); RED BLOOD COUNT 4.44 X10'6 (4.20-5.60); RED CELL DISTRIBUTION WIDTH 19.4 % (11.5-14.5); WHITE BLOOD COUNT 11.3 X10'3 (4.5-11.0)
--- NOTE | 2021-01-06 06:27 | NUR ---
Problems reprioritized. Patient report given, questions answered & plan of care reviewed with Tiera QUINTANA.
[2021-01-06 06:30] LABS: ALANINE AMINOTRANSFERASE 42 U/L (12-78); ALBUMIN 2.2 G/DL (3.4-5.0); ALBUMIN/GLOBULIN RATIO 0.5 (1.1-1.5); ALKALINE PHOSPHATASE 199 IU/L (46-116); ANION GAP 5 (8-16); ASPARTATE AMINO TRANSFERASE 48 U/L (10-37); BILIRUBIN,TOTAL 0.6 MG/DL (0.1-1.0); BLOOD UREA NITROGEN 16 MG/DL (7-18); BUN/CREATININE RATIO 27.6 (6.6-38.0); C-REACTIVE PROTEIN 12.68 MG/DL (0.0-0.5); CHLORIDE 107 MMOL/L (99-107); CREATININE 0.58 MG/DL (0.40-0.90); GLUCOSE 132 MG/DL (70-104); POTASSIUM 4.2 MMOL/L (3.5-5.1); SODIUM 139 MMOL/L (135-145); TOTAL CARBON DIOXIDE 27.3 MMOL/L (24-32); TOTAL PROTEIN 6.4 G/DL (6.4-8.2); TRIGLYCERIDES 132 MG/DL (20-135); eGFR > 90 ML/MIN
--- NOTE | 2021-01-06 06:30 | NUR ---
Received report from LILIAN Lemus
[2021-01-06] MEDS: docusate sod 100mg capsule PO SCH (08:00)
[2021-01-06] MEDS: K and/or MAG REPLACEMENT MC SCH ×2 (08:00→20:03)
[2021-01-06] MEDS: amLODIPine 5mg tablet PO SCH (08:00)
[2021-01-06] MEDS: budesonide 0.5mg/2ml UD nebule IH SCH (08:00)
[2021-01-06] MEDS: dexamethasone inj 8 MG in normal saline 50ml IV soln 50 ML IV SCH ×2 (08:18→20:02)
[2021-01-06] MEDS: enoxaparin 100mg/ml syringe SUBCUT SCH ×2 (08:20→20:03)
[2021-01-06] MEDS: furosemide 20MG tablet PO SCH (08:20)
[2021-01-06] MEDS: levoTHYROXINE 75mcg tablet PO SCH (08:21)
--- NOTE | 2021-01-06 11:38 | NUR ---
Reassessment: Pt s/p code blue and required intubation. Pt documented with an OG tube in place though no TF consult at this time. Will place TF recommendations below for if expected prolonged intubation and to receive nutrition support. Noted pt currently receiving Propofol at 3.225 mL/hr providing 85 kcal/day. Will monitor adjustments in Propofol rate and adjust TF recommendations as appropriate. Pt with a low Justice of 12, no edema or wounds per physical assessment. LBM 01/04, with routine bowel care available. Will continue to follow closely. Recommendations: 1) IF TF, continuous Vital High Protein via OGT with goal rate of 60 mL/hr. To begin at 20 mL/hr and advance by 20 mL Q8H as tolerated to goal rate. Once at goal to provide 1440 mL total volume/day, 1440 kcal, 126 g protein, and 1204 mL water 2) IF TF, monitor Propofol rate and adjust TF recommendations as appropriate 3) IF TF, monitor serum Na for water flush recommendations 4) IF TF, prealbumin q Monday/, daily scaled weights 5) Routine bowel care Addendum: 01/06/21 at [address] Amended: Links added.
[2021-01-06] MEDS: FENTANYL-0.9 % NACL/PF 100 ML IV PRN (16:58)
--- NOTE | 2021-01-06 18:30 | NUR ---
Patient in room [facility] 2013. I have received report from LILIAN Mott and had the opportunity to ask questions and assume patient care.
[2021-01-06] MEDS: docusate sodium 100mg/10ml UD cup PO SCH (20:10)
[2021-01-07] VITALS (24 sets, daily range): BP systolic 87–114; BP diastolic 49–66
[2021-01-07] MEDS: propofol 1000mg/100ml bottle 100 ML IV SCH ×5 (00:05→23:45)
[2021-01-07] MEDS ORDERED: VANCOMYCIN LEVEL IV ONE (01:30)
[2021-01-07 02:13] LABS: BASOPHILS % (AUTO) 0.3 % (0-1); EOSINOPHILS % (AUTO) 0.1 % (0-6); HEMATOCRIT 33.9 % (35.0-45.0); HEMOGLOBIN 10.9 g/dl (12.0-16.0); LYMPHOCYTES # (AUTO) 0.3 X10'3 (1.1-4.8); LYMPHOCYTES % (AUTO) 3.1 % (21-51); MEAN CORPUSCULAR HEMOGLOBIN 25.4 PG (27.0-31.0); MEAN CORPUSCULAR HGB CONC 32.2 g/dL (33.0-36.5); MEAN CORPUSCULAR VOLUME 78.8 FL (78-98); MEAN PLATELET VOLUME 7.7 FL (7.4-10.4); MONOCYTES # (AUTO) 0.5 X10'3 (0-0.9); MONOCYTES % (AUTO) 4.9 % (2-12); NEUTROPHILS # (AUTO) 9.2 X10'3 (1.8-7.7); NEUTROPHILS % (AUTO) 91.6 % (42-75); PLATELET COUNT 222 X10'3 (140-440); RED BLOOD COUNT 4.31 X10'6 (4.20-5.60); RED CELL DISTRIBUTION WIDTH 18.9 % (11.5-14.5)
[2021-01-07 02:19] LABS: D-DIMER 3.48 MG/L FEU (0-0.50)
[2021-01-07 02:23] LABS: ALANINE AMINOTRANSFERASE 50 U/L (12-78); ALBUMIN 2.1 G/DL (3.4-5.0); ALBUMIN/GLOBULIN RATIO 0.5 (1.1-1.5); ALKALINE PHOSPHATASE 188 IU/L (46-116); ANION GAP 3 (8-16); ASPARTATE AMINO TRANSFERASE 48 U/L (10-37); BILIRUBIN,TOTAL 0.5 MG/DL (0.1-1.0); BLOOD UREA NITROGEN 18 MG/DL (7-18); C-REACTIVE PROTEIN 5.86 MG/DL (0.0-0.5); CALCIUM 7.8 MG/DL (8.5-10.1); CHLORIDE 110 MMOL/L (99-107); CREATININE 0.62 MG/DL (0.40-0.90); GLUCOSE 133 MG/DL (70-104); POTASSIUM 4.3 MMOL/L (3.5-5.1); SODIUM 142 MMOL/L (135-145); TOTAL CARBON DIOXIDE 29.1 MMOL/L (24-32); TOTAL PROTEIN 6.2 G/DL (6.4-8.2); VANCOMYCIN,TROUGH 9.5 UG/ML (6.0-14.0); eGFR > 90 ML/MIN
[2021-01-07] MEDS: vancomycin/NS 1 GM ADD-VANTAGE 250 ML IV SCH (02:32)
[2021-01-07] MEDS: FENTANYL-0.9 % NACL/PF 100 ML IV PRN ×3 (02:58→23:45)
[2021-01-07 03:57] LABS: ABG BASE EXCESS 2.6 mmol/L (-2.0-2.0); ABG HCO3 28.5 mmol/L (22.0-26.0); ABG OXYGEN SATURATION 90.1 % (94-97); ABG PCO2 (T) 48.7 mmHg (32.0-45.0); ABG PO2 (T) 59.6 mmHg (75.0-100.0); ALLEN'S TEST Modified; FCOHb 0.3 % (0.0-3.9); FMetHb 0.2 % (0.0-1.5); FO2Hb 89.6 % (94-97); PATIENT TEMPERATURE 36.6; TOTAL HEMOGLOBIN 11.7 G/dl (12.0-16.0)
[2021-01-07] MEDS: normal saline 1000ml 1,000 ML IV SCH ×2 (05:10→16:43)
--- NOTE | 2021-01-07 07:00 | NUR ---
Problems reprioritized. Patient report given, questions answered & plan of care reviewed with Julio César QUINTANA.
[2021-01-07] MEDS: K and/or MAG REPLACEMENT MC SCH ×2 (07:05→20:48)
[2021-01-07] MEDS: budesonide 0.5mg/2ml UD nebule IH SCH (08:00)
[2021-01-07] MEDS: dexamethasone inj 8 MG in normal saline 50ml IV soln 50 ML IV SCH (08:43)
[2021-01-07] MEDS: cefepime 2g/NS 100ml ADVANTAGE 100 ML IV SCH ×3 (08:43→23:11)
[2021-01-07] MEDS: enoxaparin 100mg/ml syringe SUBCUT SCH ×2 (08:44→19:41)
[2021-01-07] MEDS: furosemide 20MG tablet PO SCH (08:45)
[2021-01-07] MEDS: amLODIPine 5mg tablet PO SCH (08:45)
[2021-01-07] MEDS: levoTHYROXINE 75mcg tablet PO SCH (08:45)
[2021-01-07] MEDS: docusate sodium 100mg/10ml UD cup PO SCH ×2 (08:46→19:42)
[2021-01-07] MEDS ORDERED: VANCOmycin 1250MG/NS 250ml Bag 250 ML IV SCH (10:00)
--- NOTE | 2021-01-07 11:13 | NUR ---
TF consult: Pt remains intubated. See TF recommendations below. Recommendations: 1) Continuous Vital High Protein via OGT at 60 mL/hr. To provide 1440 mL total volume/day, 1440 kcal, 126 g protein, and 1204 mL water 2) Monitor Propofol rate and adjust TF recommendations as appropriate 3) Additional 100 mL water flush Q4H; monitor serum Na 4) Prealbumin q Monday/, daily scaled weights 5) Routine bowel care Addendum: 01/07/21 at [address] Amended: Links added.
[2021-01-07] MEDS: pantoprazole 40 MG vial IV SCH (13:31)
--- NOTE | 2021-01-07 18:30 | NUR ---
Patient in room CICU 2013. I have received report from LILIAN Angela and had the opportunity to ask questions and assume patient care.
[2021-01-07] MEDS: lactobacillus rhamnosus 10,000 MMU CELLS/CAPSULE PO SCH (19:42)
[2021-01-07] MEDS: dexamethasone inj 6 MG in normal saline 50ml IV soln 50 ML IV SCH (20:12)
[2021-01-08] VITALS (24 sets, daily range): BP systolic 94–115; BP diastolic 54–68
[2021-01-08] MEDS: normal saline 1000ml 1,000 ML IV SCH ×3 (01:56→22:46)
[2021-01-08 02:54] LABS: ABG BASE EXCESS -1.9 mmol/L (-2.0-2.0); ABG HCO3 24.6 mmol/L (22.0-26.0); ABG OXYGEN SATURATION 89.3 % (94-97); ABG PCO2 (T) 48.4 mmHg (32.0-45.0); ABG PO2 (T) 61.9 mmHg (75.0-100.0); ALLEN'S TEST POSITIVE; FCOHb 0.4 % (0.0-3.9); FMetHb 0.1 % (0.0-1.5); FO2Hb 88.9 % (94-97); PATIENT TEMPERATURE 36.5; TOTAL HEMOGLOBIN 11.7 G/dl (12.0-16.0)
[2021-01-08] MEDS: propofol 1000mg/100ml bottle 100 ML IV SCH ×4 (03:02→21:15)
[2021-01-08 04:08] LABS: BASOPHILS # (AUTO) 0.1 X10'3 (0-0.2); BASOPHILS % (AUTO) 0.7 % (0-1); EOSINOPHILS % (AUTO) 0.2 % (0-6); HEMATOCRIT 33.4 % (35.0-45.0); HEMOGLOBIN 10.5 g/dl (12.0-16.0); LYMPHOCYTES # (AUTO) 0.3 X10'3 (1.1-4.8); LYMPHOCYTES % (AUTO) 3.6 % (21-51); MEAN CORPUSCULAR HEMOGLOBIN 25.3 PG (27.0-31.0); MEAN CORPUSCULAR HGB CONC 31.4 g/dL (33.0-36.5); MEAN CORPUSCULAR VOLUME 80.6 FL (78-98); MEAN PLATELET VOLUME 7.8 FL (7.4-10.4); MONOCYTES # (AUTO) 0.4 X10'3 (0-0.9); MONOCYTES % (AUTO) 6.1 % (2-12); NEUTROPHILS # (AUTO) 6.5 X10'3 (1.8-7.7); NEUTROPHILS % (AUTO) 89.4 % (42-75); PLATELET COUNT 228 X10'3 (140-440); RED BLOOD COUNT 4.15 X10'6 (4.20-5.60); RED CELL DISTRIBUTION WIDTH 19.7 % (11.5-14.5); WHITE BLOOD COUNT 7.3 X10'3 (4.5-11.0)
[2021-01-08 04:29] LABS: D-DIMER 2.64 MG/L FEU (0-0.50)
[2021-01-08 04:43] LABS: ALANINE AMINOTRANSFERASE 49 U/L (12-78); ALBUMIN 2.1 G/DL (3.4-5.0); ALBUMIN/GLOBULIN RATIO 0.5 (1.1-1.5); ALKALINE PHOSPHATASE 175 IU/L (46-116); ANION GAP 7 (8-16); ASPARTATE AMINO TRANSFERASE 44 U/L (10-37); BILIRUBIN,TOTAL 0.5 MG/DL (0.1-1.0); BLOOD UREA NITROGEN 25 MG/DL (7-18); BUN/CREATININE RATIO 45.5 (6.6-38.0); CALCIUM 7.8 MG/DL (8.5-10.1); CHLORIDE 110 MMOL/L (99-107); CREATININE 0.55 MG/DL (0.40-0.90); GLUCOSE 136 MG/DL (70-104); POTASSIUM 4.3 MMOL/L (3.5-5.1); SODIUM 144 MMOL/L (135-145); TOTAL CARBON DIOXIDE 27.4 MMOL/L (24-32); TOTAL PROTEIN 6.1 G/DL (6.4-8.2); eGFR > 90 ML/MIN
[2021-01-08 04:45] LABS: C-REACTIVE PROTEIN 3.11 MG/DL (0.0-0.5)
--- NOTE | 2021-01-08 06:14 | NUR ---
Problems reprioritized. Patient report given, questions answered & plan of care reviewed with [LILIAN Angela].
[2021-01-08] MEDS: K and/or MAG REPLACEMENT MC SCH ×2 (08:00→20:00)
[2021-01-08] MEDS: budesonide 0.5mg/2ml UD nebule IH SCH (08:00)
[2021-01-08] MEDS: furosemide 20MG tablet PO SCH (08:56)
[2021-01-08] MEDS: levoTHYROXINE 75mcg tablet PO SCH (08:57)
[2021-01-08] MEDS: docusate sodium 100mg/10ml UD cup PO SCH ×2 (08:57→19:45)
[2021-01-08] MEDS: dexamethasone inj 6 MG in normal saline 50ml IV soln 50 ML IV SCH ×2 (08:57→19:39)
[2021-01-08] MEDS: lactobacillus rhamnosus 10,000 MMU CELLS/CAPSULE PO SCH ×2 (08:57→19:39)
[2021-01-08] MEDS: cefepime 2g/NS 100ml ADVANTAGE 100 ML IV SCH ×3 (08:57→23:14)
[2021-01-08] MEDS: pantoprazole 40 MG vial IV SCH (08:57)
[2021-01-08] MEDS: amLODIPine 5mg tablet PO SCH (08:58)
[2021-01-08] MEDS: enoxaparin 100mg/ml syringe SUBCUT SCH ×2 (08:58→19:39)
[2021-01-08] MEDS: FENTANYL-0.9 % NACL/PF 100 ML IV PRN ×3 (09:23→19:58)
--- NOTE | 2021-01-08 18:15 | NUR ---
Patient in room CICU 2013. I have received report from LILIAN Angela and had the opportunity to ask questions and assume patient care.
--- NOTE | 2021-01-08 20:19 | NUR ---
Dr. Betancur notified of PT's blood sugar on upward trend and has not met the hyperglycemic protocol. A1C was checked ealier and resulted 6.4. Will cover with insulin per protocol when it arrives from pharmacy.
[2021-01-08] MEDS ORDERED: dextrose ORAL solution 15 GM/59 ML bottle PO PRN ×2 (20:30)
[2021-01-08] MEDS ORDERED: dextrose 50%-water 50ml dispensing syringe IV PRN ×2 (20:30)
[2021-01-08] MEDS ORDERED: MESSAGE TO PHARMACY PO ONE (20:30)
[2021-01-08] MEDS ORDERED: glucagon, human recombinant 1mg kit SUBCUT PRN (20:30)
[2021-01-08] MEDS ORDERED: VANCOMYCIN LEVEL IV ONE (21:30)
[2021-01-08] MEDS: insulin glargine (Lantus) pen - multi-dose SQ SCH (21:38)
[2021-01-08] MEDS: insulin regular, human U-100 3ml vial - multi-dose SQ SCH (21:40)
[2021-01-09] VITALS (23 sets, daily range): BP systolic 104–120; BP diastolic 55–67
[2021-01-09] MEDS: propofol 1000mg/100ml bottle 100 ML IV SCH ×5 (00:10→21:11)
[2021-01-09] MEDS: FENTANYL-0.9 % NACL/PF 100 ML IV PRN ×3 (01:17→15:27)
[2021-01-09] MEDS: insulin regular, human U-100 3ml vial - multi-dose SQ SCH ×3 (02:13→21:59)
[2021-01-09 03:10] LABS: ABG BASE EXCESS 0.3 mmol/L (-2.0-2.0); ABG HCO3 28.7 mmol/L (22.0-26.0); ABG OXYGEN SATURATION 92.1 % (94-97); ABG PCO2 (T) 63.8 mmHg (32.0-45.0); ABG PO2 (T) 67.3 mmHg (75.0-100.0); ALLEN'S TEST POSITIVE; FCOHb 0.5 % (0.0-3.9); FO2Hb 91.6 % (94-97); PATIENT TEMPERATURE 36.2; TOTAL HEMOGLOBIN 11.5 G/dl (12.0-16.0)
[2021-01-09 03:12] LABS: D-DIMER 3.33 MG/L FEU (0-0.50)
[2021-01-09 03:16] LABS: BASOPHILS % (AUTO) 0.2 % (0-1); EOSINOPHILS % (AUTO) 0.5 % (0-6); HEMATOCRIT 33.1 % (35.0-45.0); HEMOGLOBIN 10.4 g/dl (12.0-16.0); LYMPHOCYTES # (AUTO) 0.2 X10'3 (1.1-4.8); LYMPHOCYTES % (AUTO) 3.9 % (21-51); MEAN CORPUSCULAR HEMOGLOBIN 25.6 PG (27.0-31.0); MEAN CORPUSCULAR HGB CONC 31.4 g/dL (33.0-36.5); MEAN CORPUSCULAR VOLUME 81.5 FL (78-98); MEAN PLATELET VOLUME 7.5 FL (7.4-10.4); MONOCYTES # (AUTO) 0.3 X10'3 (0-0.9); MONOCYTES % (AUTO) 5.9 % (2-12); NEUTROPHILS # (AUTO) 5.2 X10'3 (1.8-7.7); NEUTROPHILS % (AUTO) 89.5 % (42-75); PLATELET COUNT 198 X10'3 (140-440); RED BLOOD COUNT 4.06 X10'6 (4.20-5.60); RED CELL DISTRIBUTION WIDTH 19.8 % (11.5-14.5); WHITE BLOOD COUNT 5.9 X10'3 (4.5-11.0)
[2021-01-09 03:45] LABS: ALBUMIN 2.1 G/DL (3.4-5.0); ANION GAP 8 (8-16); BILIRUBIN,TOTAL 0.4 MG/DL (0.1-1.0); BLOOD UREA NITROGEN 21 MG/DL (7-18); BUN/CREATININE RATIO 48.8 (6.6-38.0); C-REACTIVE PROTEIN 1.68 MG/DL (0.0-0.5); CALCIUM 7.6 MG/DL (8.5-10.1); CHLORIDE 109 MMOL/L (99-107); CREATININE 0.43 MG/DL (0.40-0.90); GLUCOSE 170 MG/DL (70-104); POTASSIUM 4.7 MMOL/L (3.5-5.1); SODIUM 145 MMOL/L (135-145); TOTAL CARBON DIOXIDE 28.3 MMOL/L (24-32); TOTAL PROTEIN 5.9 G/DL (6.4-8.2); eGFR > 90 ML/MIN
[2021-01-09 03:46] LABS: ALANINE AMINOTRANSFERASE 57 U/L (12-78); ALBUMIN/GLOBULIN RATIO 0.6 (1.1-1.5); ALKALINE PHOSPHATASE 160 IU/L (46-116); ASPARTATE AMINO TRANSFERASE 36 U/L (10-37)
[2021-01-09] MEDS: furosemide 20MG tablet PO SCH ×2 (06:14→07:40)
--- NOTE | 2021-01-09 06:24 | NUR ---
Problems reprioritized. Patient report given, questions answered & plan of care reviewed with Julio César QUINTANA.
[2021-01-09] MEDS: levoTHYROXINE 75mcg tablet PO SCH (07:40)
[2021-01-09] MEDS: pantoprazole 40 MG vial IV SCH (07:40)
[2021-01-09] MEDS: docusate sodium 100mg/10ml UD cup PO SCH (07:40)
[2021-01-09] MEDS: lactobacillus rhamnosus 10,000 MMU CELLS/CAPSULE PO SCH (07:40)
[2021-01-09] MEDS: amLODIPine 5mg tablet PO SCH (07:41)
[2021-01-09] MEDS: dexamethasone inj 6 MG in normal saline 50ml IV soln 50 ML IV SCH ×2 (07:41→21:20)
[2021-01-09] MEDS: cefepime 2g/NS 100ml ADVANTAGE 100 ML IV SCH ×2 (07:41→15:25)
[2021-01-09] MEDS: K and/or MAG REPLACEMENT MC SCH ×2 (07:58→20:00)
[2021-01-09] MEDS: enoxaparin 100mg/ml syringe SUBCUT SCH ×2 (07:59→21:14)
[2021-01-09] MEDS: budesonide 0.5mg/2ml UD nebule IH SCH (08:00)
[2021-01-09 08:42] LABS: ANISOCYTOSIS 2+; PLATELET ESTIMATE NORMAL
[2021-01-09 08:43] LABS: ELLIPTOCYTES FEW; SCHISTOCYTES FEW
--- NOTE | 2021-01-09 09:45 | NUR ---
Reassessment: Pt remains intubated and tolerating TF at goal rate with GRV WNL. LBM 01/04, routine bowel care started on 01/06. Propofol continues running at initial rate when TF recommendations were made and serum Na on the upper end of WNL, previously receiving NS at 100 mL/hr which was discontinued today. No changes to nutrition recommendations at this time. Noted pt now on hyperglycemic protocol for BG control, A1c 6.4%. Will continue to follow closely. Recommendations: 1) Continuous Vital High Protein via OGT at 60 mL/hr. To provide 1440 mL total volume/day, 1440 kcal, 126 g protein, and 1204 mL water 2) Monitor Propofol rate and adjust TF recommendations as appropriate 3) Additional 100 mL water flush Q4H; monitor serum Na 4) Prealbumin q Monday/, daily scaled weights 5) Routine bowel care Addendum: 01/09/21 at [address] Amended: Links added.
[2021-01-09] MEDS ORDERED: dextrose ORAL solution 15 GM/59 ML bottle OGT PRN ×2 (11:38)
[2021-01-09] MEDS ORDERED: mag hydrox/Alum hydrox/simeth 30ml oral suspension OGT PRN (11:43)
[2021-01-09] MEDS ORDERED: magnesium hydroxide 30ml (MOM) UD suspension OGT PRN (11:44)
[2021-01-09] MEDS: furosemide 40 MG/4 ML oral solution UD cup OGT SCH (15:25)
[2021-01-09] MEDS: docusate sodium 100mg/10ml UD cup OGT SCH (21:12)
[2021-01-09] MEDS: lactobacillus rhamnosus 10,000 MMU CELLS/CAPSULE OGT SCH (21:12)
[2021-01-09] MEDS: insulin glargine (Lantus) pen - multi-dose SQ SCH (21:56)
[2021-01-10] VITALS (24 sets, daily range): BP systolic 101–152; BP diastolic 53–85
[2021-01-10] MEDS: propofol 1000mg/100ml bottle 100 ML IV SCH ×3 (01:03→19:37)
[2021-01-10] MEDS: FENTANYL-0.9 % NACL/PF 100 ML IV PRN ×3 (01:04→19:37)
[2021-01-10] MEDS: cefepime 2g/NS 100ml ADVANTAGE 100 ML IV SCH ×4 (01:05→23:42)
[2021-01-10] MEDS: furosemide 40 MG/4 ML oral solution UD cup OGT SCH ×2 (01:06→08:14)
[2021-01-10] MEDS: insulin regular, human U-100 3ml vial - multi-dose SQ SCH ×4 (02:57→21:38)
[2021-01-10 03:09] LABS: ABG BASE EXCESS 4.2 mmol/L (-2.0-2.0); ABG HCO3 32.2 mmol/L (22.0-26.0); ABG OXYGEN SATURATION 93.4 % (94-97); ABG PO2 (T) 73.4 mmHg (75.0-100.0); ALLEN'S TEST POSITIVE; FCOHb 0.9 % (0.0-3.9); FMetHb 0.1 % (0.0-1.5); FO2Hb 92.5 % (94-97); PATIENT TEMPERATURE 37.1; TOTAL HEMOGLOBIN 12.5 G/dl (12.0-16.0)
[2021-01-10] MEDS: budesonide 0.5mg/2ml UD nebule IH SCH (08:00)
[2021-01-10] MEDS: K and/or MAG REPLACEMENT MC SCH ×2 (08:00→20:00)
[2021-01-10] MEDS: dexamethasone inj 6 MG in normal saline 50ml IV soln 50 ML IV SCH ×2 (08:13→19:35)
[2021-01-10] MEDS: lactobacillus rhamnosus 10,000 MMU CELLS/CAPSULE OGT SCH ×2 (08:14→19:35)
[2021-01-10] MEDS: amLODIPine 5mg tablet OGT SCH (08:14)
[2021-01-10] MEDS: docusate sodium 100mg/10ml UD cup OGT SCH ×2 (08:14→19:35)
[2021-01-10] MEDS: lansoprazole 15mg solutab OGT SCH (08:15)
[2021-01-10] MEDS: levoTHYROXINE 75mcg tablet OGT SCH (08:15)
[2021-01-10] MEDS: enoxaparin 100mg/ml syringe SUBCUT SCH ×2 (08:16→19:35)
--- NOTE | 2021-01-10 14:32 | NUR ---
CPR started Addendum: 01/10/21 at 1606 by Chaz Hope RN Noted on wrong chart
--- NOTE | 2021-01-10 14:46 | NUR ---
Pt pronounced by Dr. Borden. Addendum: 01/10/21 at 1606 by Chaz Hope RN Noted on wrong pt chart
[2021-01-10] MEDS: metolazone 2.5mg tablet PO SCH ×2 (16:41→23:42)
[2021-01-10] MEDS: furosemide 40mg/4ml inj IV SCH ×2 (16:42→23:42)
--- NOTE | 2021-01-10 18:04 | NUR ---
Problems reprioritized. Patient report given, questions answered & plan of care reviewed with LILIAN Benitez.
[2021-01-10] MEDS: insulin glargine (Lantus) pen - multi-dose SQ SCH (21:35)
[2021-01-11] VITALS (23 sets, daily range): BP systolic 84–150; BP diastolic 48–93
[2021-01-11 02:36] LABS: ABG BASE EXCESS 17.2 mmol/L (-2.0-2.0); ABG HCO3 43.3 mmol/L (22.0-26.0); ABG OXYGEN SATURATION 95.1 % (94-97); ABG PCO2 (T) 59.3 mmHg (32.0-45.0); ABG PO2 (T) 76.5 mmHg (75.0-100.0); ALLEN'S TEST POSITIVE; FCOHb 0.7 % (0.0-3.9); FMetHb 0.2 % (0.0-1.5); FO2Hb 94.2 % (94-97); PATIENT TEMPERATURE 37.6; TOTAL HEMOGLOBIN 12.1 G/dl (12.0-16.0)
[2021-01-11] MEDS: insulin regular, human U-100 3ml vial - multi-dose SQ SCH ×3 (02:47→22:14)
[2021-01-11] MEDS: propofol 1000mg/100ml bottle 100 ML IV SCH ×2 (04:24→21:49)
[2021-01-11] MEDS: FENTANYL-0.9 % NACL/PF 100 ML IV PRN ×3 (04:25→21:51)
[2021-01-11 07:42] LABS: BASOPHILS % (AUTO) 0 % (0-1); EOSINOPHILS % (AUTO) 0 % (0-6); HEMATOCRIT 33.5 % (35.0-45.0); HEMOGLOBIN 10.7 g/dl (12.0-16.0); LYMPHOCYTES % (AUTO) 8.9 % (21-51); MEAN CORPUSCULAR HEMOGLOBIN 25.8 PG (27.0-31.0); MEAN CORPUSCULAR HGB CONC 32.1 g/dL (33.0-36.5); MEAN CORPUSCULAR VOLUME 80.5 FL (78-98); MEAN PLATELET VOLUME 7.7 FL (7.4-10.4); MONOCYTES # (AUTO) 0.6 X10'3 (0-0.9); MONOCYTES % (AUTO) 5.2 % (2-12); NEUTROPHILS # (AUTO) 9.5 X10'3 (1.8-7.7); NEUTROPHILS % (AUTO) 85.9 % (42-75); PLATELET COUNT 188 X10'3 (140-440); RED BLOOD COUNT 4.16 X10'6 (4.20-5.60); RED CELL DISTRIBUTION WIDTH 19.3 % (11.5-14.5)
[2021-01-11] MEDS: amLODIPine 5mg tablet OGT SCH (07:52)
[2021-01-11] MEDS: metolazone 2.5mg tablet PO SCH ×2 (07:52→15:47)
[2021-01-11] MEDS: docusate sodium 100mg/10ml UD cup OGT SCH ×2 (07:53→20:46)
[2021-01-11] MEDS: lactobacillus rhamnosus 10,000 MMU CELLS/CAPSULE OGT SCH ×2 (07:53→20:46)
[2021-01-11] MEDS: levoTHYROXINE 75mcg tablet OGT SCH (07:53)
[2021-01-11] MEDS: enoxaparin 100mg/ml syringe SUBCUT SCH ×2 (07:54→20:43)
[2021-01-11] MEDS: furosemide 40mg/4ml inj IV SCH ×2 (07:54→15:47)
[2021-01-11] MEDS: lansoprazole 15mg solutab OGT SCH (07:54)
[2021-01-11] MEDS: dexamethasone inj 6 MG in normal saline 50ml IV soln 50 ML IV SCH (07:55)
[2021-01-11] MEDS: K and/or MAG REPLACEMENT MC SCH (07:55)
[2021-01-11] MEDS: cefepime 2g/NS 100ml ADVANTAGE 100 ML IV SCH ×2 (07:55→15:47)
[2021-01-11 07:56] LABS: ALANINE AMINOTRANSFERASE 77 U/L (12-78); ALBUMIN 2.1 G/DL (3.4-5.0); ALBUMIN/GLOBULIN RATIO 0.6 (1.1-1.5); ALKALINE PHOSPHATASE 137 IU/L (46-116); ANION GAP -1 (8-16); BILIRUBIN,TOTAL 0.6 MG/DL (0.1-1.0); BLOOD UREA NITROGEN 25 MG/DL (7-18); BUN/CREATININE RATIO 54.3 (6.6-38.0); CALCIUM 7.5 MG/DL (8.5-10.1); CHLORIDE 98 MMOL/L (99-107); CREATININE 0.46 MG/DL (0.40-0.90); PREALBUMIN 26.4 MG/DL (19-36); SODIUM 137 MMOL/L (135-145); TOTAL CARBON DIOXIDE 39.8 MMOL/L (24-32); TOTAL PROTEIN 5.5 G/DL (6.4-8.2); eGFR > 90 ML/MIN
[2021-01-11 07:57] LABS: GLUCOSE 111 MG/DL (70-104); POTASSIUM 3.2 MMOL/L (3.5-5.1)
[2021-01-11] MEDS: budesonide 0.5mg/2ml UD nebule IH SCH (08:00)
[2021-01-11 08:13] LABS: ASPARTATE AMINO TRANSFERASE 58 U/L (10-37)
[2021-01-11 10:30] LABS: D-DIMER 1.58 MG/L FEU (0-0.50)
[2021-01-11 10:41] LABS: C-REACTIVE PROTEIN 0.35 MG/DL (0.0-0.5)
[2021-01-11] MEDS ORDERED: magnesium hydroxide 30ml (MOM) UD suspension PO ONE (11:00)
[2021-01-11] MEDS: potassium Cl 20 mEq SR tablet PO PRN ×3 (11:32→20:46)
[2021-01-11] MEDS: acetaZOLAMIDE IV 500mg inj IV SCH ×3 (11:33→22:30)
[2021-01-11 12:10] LABS: ABG BASE EXCESS 19.9 mmol/L (-2.0-2.0); ABG HCO3 46.9 mmol/L (22.0-26.0); ABG OXYGEN SATURATION 89.8 % (94-97); ABG PCO2 (T) 66.7 mmHg (32.0-45.0); ABG PO2 (T) 62.4 mmHg (75.0-100.0); ALLEN'S TEST POSITIVE; FCOHb 0.8 % (0.0-3.9); FLOW 30 L/min; FMetHb 0.1 % (0.0-1.5); PATIENT TEMPERATURE 37.6; PEEP 10 cm H2O; RESPIRATORY RATE 20 b/min; TIDAL VOLUME 450 mL; TOTAL HEMOGLOBIN 12.2 G/dl (12.0-16.0)
[2021-01-11] MEDS: lactulose 20gm/30ml cup PO SCH ×2 (13:31→20:46)
[2021-01-11 15:58] LABS: ABG BASE EXCESS 17.4 mmol/L (-2.0-2.0); ABG HCO3 43.8 mmol/L (22.0-26.0); ABG OXYGEN SATURATION 85.1 % (94-97); ABG PCO2 (T) 61.1 mmHg (32.0-45.0); ABG PO2 (T) 56.4 mmHg (75.0-100.0); ALLEN'S TEST POSITIVE; FCOHb 0.8 % (0.0-3.9); FMetHb 0.1 % (0.0-1.5); FO2Hb 84.3 % (94-97); PATIENT TEMPERATURE 37.8; PEEP 10 cm H2O; RESPIRATORY RATE 24 b/min; TIDAL VOLUME 500 mL; TOTAL HEMOGLOBIN 12.8 G/dl (12.0-16.0)
[2021-01-11] MEDS ORDERED: albumin (Human) 5% 250ml 250 ML IV ONE ×3 (19:45→19:55)
[2021-01-11] MEDS: dexamethasone inj 5 MG in normal saline 50ml IV soln 50 ML IV SCH (20:45)
[2021-01-11] MEDS: insulin glargine (Lantus) pen - multi-dose SQ SCH (22:12)
[2021-01-12] VITALS (23 sets, daily range): BP systolic 89–129; BP diastolic 52–81
[2021-01-12] MEDS: metolazone 2.5mg tablet PO SCH ×3 (00:27→15:21)
[2021-01-12] MEDS: cefepime 2g/NS 100ml ADVANTAGE 100 ML IV SCH ×2 (00:27→07:39)
[2021-01-12] MEDS: furosemide 40mg/4ml inj IV SCH ×3 (00:40→15:15)
[2021-01-12] MEDS: insulin regular, human U-100 3ml vial - multi-dose SQ SCH ×4 (02:36→23:30)
[2021-01-12] MEDS: lactulose 20gm/30ml cup PO SCH ×4 (02:42→21:30)
[2021-01-12 03:01] LABS: ABG BASE EXCESS 10.5 mmol/L (-2.0-2.0); ABG HCO3 36.2 mmol/L (22.0-26.0); ABG OXYGEN SATURATION 90.2 % (94-97); ABG PCO2 (T) 53.5 mmHg (32.0-45.0); ABG PO2 (T) 61.3 mmHg (75.0-100.0); ALLEN'S TEST POSITIVE; FCOHb 0.8 % (0.0-3.9); FMetHb 0.1 % (0.0-1.5); FO2Hb 89.4 % (94-97); PATIENT TEMPERATURE 37.4; PEEP 10 cm H2O; RESPIRATORY RATE 24 b/min; TIDAL VOLUME 500 mL; TOTAL HEMOGLOBIN 12.4 G/dl (12.0-16.0)
[2021-01-12 03:36] LABS: MAGNESIUM 2.7 MG/DL (1.5-2.4); POTASSIUM 3.3 MMOL/L (3.5-5.1)
[2021-01-12] MEDS: propofol 1000mg/100ml bottle 100 ML IV SCH ×4 (05:46→18:07)
--- NOTE | 2021-01-12 06:26 | NUR ---
Patient in room [facility] 2013. I have received report from Long QUINTANA and had the opportunity to ask questions and assume patient care.
[2021-01-12] MEDS: dexamethasone inj 5 MG in normal saline 50ml IV soln 50 ML IV SCH (07:22)
[2021-01-12] MEDS: lansoprazole 15mg solutab OGT SCH (07:25)
[2021-01-12] MEDS: lactobacillus rhamnosus 10,000 MMU CELLS/CAPSULE OGT SCH ×2 (07:25→21:31)
[2021-01-12] MEDS: enoxaparin 100mg/ml syringe SUBCUT SCH ×2 (07:25→21:31)
[2021-01-12] MEDS: amLODIPine 5mg tablet OGT SCH (07:26)
[2021-01-12] MEDS: docusate sodium 100mg/10ml UD cup OGT SCH ×2 (07:26→21:30)
[2021-01-12] MEDS: levoTHYROXINE 75mcg tablet OGT SCH (07:26)
[2021-01-12] MEDS: K and/or MAG REPLACEMENT MC SCH ×2 (07:35→07:36)
[2021-01-12] MEDS: potassium Cl 40MEQ/250ML bag 270 ML IV PRN (07:35)
[2021-01-12] MEDS: FENTANYL-0.9 % NACL/PF 100 ML IV PRN ×3 (07:42→22:50)
[2021-01-12] MEDS: budesonide 0.5mg/2ml UD nebule IH SCH (08:00)
--- NOTE | 2021-01-12 11:22 | NUR ---
Reassessment: Pt remains intubated and tolerating TF at goal rate with GRV WNL. Currently receiving Vital AF in substitution for Vital High Protein given product shortage. Noted pt now receiving 150 mL water flushed Q4H per MD, previously receiving 100 mL Q4H. Serum Na WNL at this time. LBM 01/04, receiving routine Colace and started on routine Lactulose 01/11. Pt also received PRN MoM for the first time 01/11. No changes to nutrition recommendations at this time. Will continue to follow closely. Recommendations: 1) Continuous Vital High Protein via OGT at 60 mL/hr. To provide 1440 mL total volume/day, 1440 kcal, 126 g protein, and 1204 mL water; Okay to substitute using Vital AF given product shortage 2) Monitor Propofol rate and adjust TF recommendations as appropriate 3) Additional 150 mL water flush Q4H per MD; monitor serum Na 4) Prealbumin q Monday/, daily scaled weights 5) Routine bowel care Addendum: 01/12/21 at [address] Amended: Links added.
--- NOTE | 2021-01-12 18:12 | NUR ---
Problems reprioritized. Patient report given, questions answered & plan of care reviewed with Long QUINTANA.
[2021-01-12] MEDS: dexamethasone inj 4 MG in normal saline 50ml IV soln 50 ML IV SCH (21:31)
[2021-01-12] MEDS: insulin glargine (Lantus) pen - multi-dose SQ SCH (21:58)
[2021-01-13] VITALS (23 sets, daily range): BP systolic 88–117; BP diastolic 55–73
[2021-01-13] MEDS: propofol 1000mg/100ml bottle 100 ML IV SCH ×2 (01:07→07:18)
[2021-01-13] MEDS: furosemide 40mg/4ml inj IV SCH ×3 (01:11→16:00)
[2021-01-13] MEDS: metolazone 2.5mg tablet PO SCH ×3 (01:11→17:12)
[2021-01-13] MEDS: lactulose 20gm/30ml cup PO SCH ×4 (01:11→19:37)
[2021-01-13] MEDS: insulin regular, human U-100 3ml vial - multi-dose SQ SCH ×4 (02:47→20:19)
[2021-01-13 03:06] LABS: ABG BASE EXCESS 15.5 mmol/L (-2.0-2.0); ABG HCO3 40.5 mmol/L (22.0-26.0); ABG OXYGEN SATURATION 90.2 % (94-97); ABG PCO2 (T) 52.5 mmHg (32.0-45.0); ABG PO2 (T) 61.3 mmHg (75.0-100.0); ALLEN'S TEST POSITIVE; FCOHb 1.3 % (0.0-3.9); FMetHb 0.3 % (0.0-1.5); FO2Hb 88.8 % (94-97); PATIENT TEMPERATURE 37.9; PEEP 10 cm H2O; RESPIRATORY RATE 26 b/min; TIDAL VOLUME 500 mL
[2021-01-13 03:48] LABS: D-DIMER 1.35 MG/L FEU (0-0.50)
[2021-01-13 03:59] LABS: MAGNESIUM 2.5 MG/DL (1.5-2.4); TRIGLYCERIDES 327 MG/DL (20-135)
[2021-01-13 04:02] LABS: C-REACTIVE PROTEIN < 0.05 MG/DL (0.0-0.5)
[2021-01-13 04:07] LABS: POTASSIUM 2.8 MMOL/L (3.5-5.1)
[2021-01-13] MEDS: potassium Cl 20 mEq SR tablet PO PRN ×2 (04:34→04:35)
[2021-01-13] MEDS: docusate sodium 100mg/10ml UD cup OGT SCH ×2 (07:18→19:37)
[2021-01-13] MEDS: FENTANYL-0.9 % NACL/PF 100 ML IV PRN ×3 (07:18→19:38)
[2021-01-13] MEDS: amLODIPine 5mg tablet OGT SCH (07:19)
[2021-01-13] MEDS: lactobacillus rhamnosus 10,000 MMU CELLS/CAPSULE OGT SCH ×2 (07:20→19:37)
[2021-01-13] MEDS: lansoprazole 15mg solutab OGT SCH (07:20)
[2021-01-13] MEDS: levoTHYROXINE 75mcg tablet OGT SCH (07:21)
[2021-01-13] MEDS: enoxaparin 100mg/ml syringe SUBCUT SCH ×2 (07:47→19:37)
[2021-01-13] MEDS: K and/or MAG REPLACEMENT MC SCH ×2 (08:00→09:30)
[2021-01-13] MEDS: budesonide 0.5mg/2ml UD nebule IH SCH (08:00)
[2021-01-13] MEDS: dexamethasone inj 4 MG in normal saline 50ml IV soln 50 ML IV SCH ×2 (08:12→19:38)
[2021-01-13 09:48] LABS: C-REACTIVE PROTEIN 0.1 MG/DL (0.0-0.5)
[2021-01-13] MEDS: midazolam 100mg in NS 100ml 100 ML IV PRN ×3 (11:29→19:38)
[2021-01-13 14:08] LABS: CLARITY,URINE CLOUDY (Clear); COLOR,URINE YELLOW (Yellow); GLUCOSE, URINE NEGATIVE (Neg); KETONES,URINE NEGATIVE (Neg); LEUKOCYTE ESTERASE ,URINE NEGATIVE (Neg); NITRITES, URINE NEGATIVE (Neg); OCCULT BLOOD,URINE MODERATE (Neg); PROTEIN,URINE NEGATIVE (Neg); UA COLLECTION TYPE NON-SPECIFIED; UROBILINOGEN,URINE 0.2 E.U/dL (0.2-1.0)
[2021-01-13 14:18] LABS: BACTERIA,URINE FEW /HPF (Neg); SQUAMOUS EPITHELIAL CELL,UR FEW /LPF (FEW)
[2021-01-13 14:19] LABS: HYALINE CASTS 0-3 /LPF (NEGATIVE); MUCUS STRANDS NONE SEEN /LPF (Neg); YEAST MANY /HPF (NEGATIVE)
[2021-01-13 15:23] LABS: BASOPHILS % (AUTO) 0.3 % (0-1); EOSINOPHILS # (AUTO) 0.2 X10'3 (0-0.9); EOSINOPHILS % (AUTO) 1.5 % (0-6); HEMATOCRIT 37.7 % (35.0-45.0); HEMOGLOBIN 11.7 g/dl (12.0-16.0); LYMPHOCYTES # (AUTO) 1.1 X10'3 (1.1-4.8); LYMPHOCYTES % (AUTO) 10.3 % (21-51); MEAN CORPUSCULAR HEMOGLOBIN 25.2 PG (27.0-31.0); MEAN CORPUSCULAR VOLUME 81.2 FL (78-98); MEAN PLATELET VOLUME 8.5 FL (7.4-10.4); MONOCYTES # (AUTO) 1.3 X10'3 (0-0.9); MONOCYTES % (AUTO) 11.5 % (2-12); NEUTROPHILS # (AUTO) 8.5 X10'3 (1.8-7.7); NEUTROPHILS % (AUTO) 76.4 % (42-75); PLATELET COUNT 158 X10'3 (140-440); RED BLOOD COUNT 4.64 X10'6 (4.20-5.60); WHITE BLOOD COUNT 11.1 X10'3 (4.5-11.0)
[2021-01-13 15:38] LABS: PLATELET ESTIMATE NORMAL
[2021-01-13 15:39] LABS: ANISOCYTOSIS 2+; LARGE PLATELETS FEW; POLYCHROMASIA 1+; SCHISTOCYTES FEW
[2021-01-13 15:40] LABS: TARGET CELLS FEW
--- NOTE | 2021-01-13 18:00 | NUR ---
REPORT RECEIVED FROM CHEMA/LILIAN, HE SAID DR. CASTILLO ORDER TO HOLD NEXT DOSAGE OF LAXIX AND ZAROXOLYN DUE TO SEPSIS
[2021-01-13] MEDS: acetaminophen 325mg/10.15ml oral unit dose solution OGT PRN (19:47)
[2021-01-13] MEDS: insulin glargine (Lantus) pen - multi-dose SQ SCH (20:15)
[2021-01-14] VITALS (23 sets, daily range): BP systolic 91–112; BP diastolic 52–64
[2021-01-14] MEDS: midazolam 100mg in NS 100ml 100 ML IV PRN ×3 (02:03→16:28)
[2021-01-14] MEDS: lactulose 20gm/30ml cup PO SCH ×4 (02:03→21:15)
[2021-01-14] MEDS: FENTANYL-0.9 % NACL/PF 100 ML IV PRN ×3 (02:03→16:28)
[2021-01-14] MEDS: insulin regular, human U-100 3ml vial - multi-dose SQ SCH ×4 (02:58→21:26)
[2021-01-14 03:13] LABS: ABG BASE EXCESS 16.6 mmol/L (-2.0-2.0); ABG HCO3 42.5 mmol/L (22.0-26.0); ABG OXYGEN SATURATION 93.4 % (94-97); ABG PCO2 (T) 58.1 mmHg (32.0-45.0); ABG PO2 (T) 71.1 mmHg (75.0-100.0); ALLEN'S TEST POSITIVE; FCOHb 1.1 % (0.0-3.9); FMetHb 0.2 % (0.0-1.5); FO2Hb 92.2 % (94-97); PATIENT TEMPERATURE 37.6; PEEP 10 cm H2O; RESPIRATORY RATE 22 b/min; TIDAL VOLUME 450 mL; TOTAL HEMOGLOBIN 12.3 G/dl (12.0-16.0)
[2021-01-14 03:53] LABS: D-DIMER 0.74 MG/L FEU (0-0.50)
[2021-01-14 04:05] LABS: ALANINE AMINOTRANSFERASE 102 U/L (12-78); ALBUMIN 2.8 G/DL (3.4-5.0); ALBUMIN/GLOBULIN RATIO 0.8 (1.1-1.5); ALKALINE PHOSPHATASE 138 IU/L (46-116); ANION GAP 2 (8-16); ASPARTATE AMINO TRANSFERASE 67 U/L (10-37); BILIRUBIN,TOTAL 0.7 MG/DL (0.1-1.0); BLOOD UREA NITROGEN 43 MG/DL (7-18); BUN/CREATININE RATIO 64.2 (6.6-38.0); C-REACTIVE PROTEIN 0.12 MG/DL (0.0-0.5); CALCIUM 8.1 MG/DL (8.5-10.1); CHLORIDE 99 MMOL/L (99-107); CREATININE 0.67 MG/DL (0.40-0.90); GLUCOSE 164 MG/DL (70-104); PHOSPHORUS 3.3 MG/DL (2.3-4.5); POTASSIUM 3.3 MMOL/L (3.5-5.1); PREALBUMIN 34.5 MG/DL (19-36); SODIUM 142 MMOL/L (135-145); TOTAL PROTEIN 6.4 G/DL (6.4-8.2); eGFR > 90 ML/MIN
--- NOTE | 2021-01-14 04:59 | NUR ---
DR AVILA NOTIFIED REFARDING CHEM8 CO2 40.0 AND NO NEW ODER RECEIVE
--- NOTE | 2021-01-14 06:06 | NUR ---
Mckeon care provided x2 Oral care provided Q2 hours and as needed throughout the shift
--- NOTE | 2021-01-14 06:18 | NUR ---
Report given to Julio César/LILIAN
[2021-01-14 07:27] LABS: BASOPHILS % (AUTO) 0.5 % (0-1); EOSINOPHILS # (AUTO) 0.1 X10'3 (0-0.9); EOSINOPHILS % (AUTO) 0.7 % (0-6); HEMATOCRIT 36.1 % (35.0-45.0); HEMOGLOBIN 11.3 g/dl (12.0-16.0); LYMPHOCYTES # (AUTO) 1.1 X10'3 (1.1-4.8); LYMPHOCYTES % (AUTO) 11.5 % (21-51); MEAN CORPUSCULAR HEMOGLOBIN 25.3 PG (27.0-31.0); MEAN CORPUSCULAR HGB CONC 31.3 g/dL (33.0-36.5); MEAN CORPUSCULAR VOLUME 80.7 FL (78-98); MEAN PLATELET VOLUME 8.5 FL (7.4-10.4); MONOCYTES # (AUTO) 1.1 X10'3 (0-0.9); MONOCYTES % (AUTO) 10.9 % (2-12); NEUTROPHILS # (AUTO) 7.5 X10'3 (1.8-7.7); NEUTROPHILS % (AUTO) 76.4 % (42-75); PLATELET COUNT 145 X10'3 (140-440); RED BLOOD COUNT 4.47 X10'6 (4.20-5.60); RED CELL DISTRIBUTION WIDTH 19.6 % (11.5-14.5); WHITE BLOOD COUNT 9.8 X10'3 (4.5-11.0)
[2021-01-14] MEDS: dexamethasone inj 4 MG in normal saline 50ml IV soln 50 ML IV SCH (07:28)
[2021-01-14] MEDS: docusate sodium 100mg/10ml UD cup OGT SCH ×2 (07:28→21:15)
[2021-01-14] MEDS: lansoprazole 15mg solutab OGT SCH (07:29)
[2021-01-14] MEDS: enoxaparin 100mg/ml syringe SUBCUT SCH ×2 (07:29→21:14)
[2021-01-14] MEDS: metolazone 2.5mg tablet PO SCH ×4 (07:29→23:55)
[2021-01-14] MEDS: lactobacillus rhamnosus 10,000 MMU CELLS/CAPSULE OGT SCH ×2 (07:29→20:00)
[2021-01-14] MEDS: levoTHYROXINE 75mcg tablet OGT SCH (07:30)
[2021-01-14] MEDS: amLODIPine 5mg tablet OGT SCH (07:30)
[2021-01-14] MEDS: furosemide 40mg/4ml inj IV SCH ×4 (07:31→23:54)
[2021-01-14] MEDS: potassium Cl 20 mEq SR tablet PO PRN ×3 (07:31→23:54)
[2021-01-14] MEDS: K and/or MAG REPLACEMENT MC SCH ×2 (07:32)
[2021-01-14] MEDS: budesonide 0.5mg/2ml UD nebule IH SCH (08:00)
[2021-01-14] MEDS: insulin glargine (Lantus) pen - multi-dose SQ SCH (21:28)
[2021-01-15] VITALS (23 sets, daily range): BP systolic 81–117; BP diastolic 45–64
[2021-01-15] MEDS: lactulose 20gm/30ml cup PO SCH ×4 (02:41→20:23)
[2021-01-15 03:20] LABS: D-DIMER 0.76 MG/L FEU (0-0.50)
[2021-01-15 03:32] LABS: C-REACTIVE PROTEIN 0.1 MG/DL (0.0-0.5); MAGNESIUM 2.9 MG/DL (1.5-2.4)
[2021-01-15 04:02] LABS: POTASSIUM 2.6 MMOL/L (3.5-5.1)
[2021-01-15] MEDS: potassium Cl 40MEQ/250ML bag 270 ML IV PRN (04:35)
[2021-01-15] MEDS: FENTANYL-0.9 % NACL/PF 100 ML IV PRN ×2 (05:29→20:44)
[2021-01-15] MEDS: midazolam 100mg in NS 100ml 100 ML IV PRN ×2 (05:29→20:45)
[2021-01-15 05:44] LABS: ABG OXYGEN SATURATION 88.9 % (94-97); ABG PCO2 (T) 50.1 mmHg (32.0-45.0); ABG PO2 (T) 56.2 mmHg (75.0-100.0); ALLEN'S TEST Modified; FCOHb 1.2 % (0.0-3.9); FMetHb 0.1 % (0.0-1.5); FO2Hb 87.7 % (94-97); PATIENT TEMPERATURE 37.2; PEEP 8 cm H2O; RESPIRATORY RATE 24 b/min; TIDAL VOLUME 450 mL; TOTAL HEMOGLOBIN 12.2 G/dl (12.0-16.0)
[2021-01-15] MEDS: enoxaparin 100mg/ml syringe SUBCUT SCH ×2 (07:43→20:24)
[2021-01-15] MEDS: lansoprazole 15mg solutab OGT SCH (07:44)
[2021-01-15] MEDS: docusate sodium 100mg/10ml UD cup OGT SCH ×2 (07:44→20:23)
[2021-01-15] MEDS: metolazone 2.5mg tablet PO SCH (07:44)
[2021-01-15] MEDS: levoTHYROXINE 75mcg tablet OGT SCH (07:45)
[2021-01-15] MEDS: amLODIPine 5mg tablet OGT SCH (07:45)
[2021-01-15] MEDS: lactobacillus rhamnosus 10,000 MMU CELLS/CAPSULE OGT SCH ×2 (07:45→20:33)
[2021-01-15] MEDS: furosemide 40mg/4ml inj IV SCH (07:46)
[2021-01-15] MEDS ORDERED: dexamethasone inj 6 MG in normal saline 50ml IV soln 50 ML IV SCH (08:00)
[2021-01-15] MEDS: budesonide 0.5mg/2ml UD nebule IH SCH (08:00)
--- NOTE | 2021-01-15 11:36 | NUR ---
Reassessment: Pt remains intubated and tolerating TF at goal rate with GRV WNL. Pt no longer receiving Propofol per EMR. Noted serum K low at 2.6 mg/dL, receiving PRN replacement. LBM 01/15, receiving routine bowel care. No changes to nutrition recommendations at this time. Will continue to follow. Recommendations: 1) Continuous Vital High Protein via OGT at 60 mL/hr. To provide 1440 mL total volume/day, 1440 kcal, 126 g protein, and 1204 mL water; Okay to substitute using Vital AF given product shortage 2) Additional 150 mL water flush Q4H per MD; monitor serum Na 3) Prealbumin q Monday/, daily scaled weights 4) Routine bowel care Addendum: 01/15/21 at [address] Amended: Links added.
[2021-01-15] MEDS ORDERED: iohexol 350MG/ML 100ml bottle IV ONE (17:07)
[2021-01-15] MEDS: nystatin 15 GM powder TP SCH (20:25)
[2021-01-15] MEDS: insulin glargine (Lantus) pen - multi-dose SQ SCH (20:36)
[2021-01-15] MEDS: insulin regular, human U-100 3ml vial - multi-dose SQ SCH (20:40)
[2021-01-16] VITALS (24 sets, daily range): BP systolic 84–121; BP diastolic 47–74
[2021-01-16] MEDS: furosemide 40mg/4ml inj IV SCH ×3 (00:22→15:54)
[2021-01-16] MEDS: metolazone 2.5mg tablet PO SCH ×3 (00:22→15:54)
[2021-01-16] MEDS: lactulose 20gm/30ml cup PO SCH ×4 (02:22→21:39)
[2021-01-16 02:53] LABS: ABG BASE EXCESS 16.2 mmol/L (-2.0-2.0); ABG HCO3 41.3 mmol/L (22.0-26.0); ABG OXYGEN SATURATION 92.8 % (94-97); ABG PCO2 (T) 52.3 mmHg (32.0-45.0); ABG PO2 (T) 64.4 mmHg (75.0-100.0); ALLEN'S TEST Modified; FCOHb 1.2 % (0.0-3.9); FMetHb 0.1 % (0.0-1.5); FO2Hb 91.6 % (94-97); PATIENT TEMPERATURE 37.2; PEEP 8 cm H2O; RESPIRATORY RATE 22 b/min; TIDAL VOLUME 450 mL; TOTAL HEMOGLOBIN 12.1 G/dl (12.0-16.0)
[2021-01-16] MEDS: insulin regular, human U-100 3ml vial - multi-dose SQ SCH ×4 (02:56→21:37)
[2021-01-16 04:32] LABS: C-REACTIVE PROTEIN 0.22 MG/DL (0.0-0.5); MAGNESIUM 2.9 MG/DL (1.5-2.4)
[2021-01-16 04:47] LABS: POTASSIUM 2.9 MMOL/L (3.5-5.1)
[2021-01-16 05:18] LABS: D-DIMER 0.78 MG/L FEU (0-0.50)
[2021-01-16 07:04] LABS: BASOPHILS % (AUTO) 0.3 % (0-1); EOSINOPHILS # (AUTO) 0.2 X10'3 (0-0.9); EOSINOPHILS % (AUTO) 1.4 % (0-6); HEMATOCRIT 33.3 % (35.0-45.0); HEMOGLOBIN 10.6 g/dl (12.0-16.0); LYMPHOCYTES # (AUTO) 1.1 X10'3 (1.1-4.8); LYMPHOCYTES % (AUTO) 8.8 % (21-51); MEAN CORPUSCULAR HEMOGLOBIN 25.9 PG (27.0-31.0); MEAN CORPUSCULAR HGB CONC 31.9 g/dL (33.0-36.5); MEAN CORPUSCULAR VOLUME 81.1 FL (78-98); MEAN PLATELET VOLUME 8.1 FL (7.4-10.4); MONOCYTES # (AUTO) 1.1 X10'3 (0-0.9); MONOCYTES % (AUTO) 8.7 % (2-12); NEUTROPHILS # (AUTO) 10.4 X10'3 (1.8-7.7); NEUTROPHILS % (AUTO) 80.8 % (42-75); PLATELET COUNT 116 X10'3 (140-440); WHITE BLOOD COUNT 12.9 X10'3 (4.5-11.0)
[2021-01-16 07:14] LABS: ALANINE AMINOTRANSFERASE 89 U/L (12-78); ALBUMIN 2.6 G/DL (3.4-5.0); ALBUMIN/GLOBULIN RATIO 0.8 (1.1-1.5); ALKALINE PHOSPHATASE 122 IU/L (46-116); ANION GAP -1 (8-16); ASPARTATE AMINO TRANSFERASE 48 U/L (10-37); BILIRUBIN,TOTAL 0.7 MG/DL (0.1-1.0); BLOOD UREA NITROGEN 45 MG/DL (7-18); BUN/CREATININE RATIO 80.4 (6.6-38.0); CHLORIDE 103 MMOL/L (99-107); CREATININE 0.56 MG/DL (0.40-0.90); GLUCOSE 136 MG/DL (70-104); SODIUM 142 MMOL/L (135-145); TOTAL CARBON DIOXIDE 39.9 MMOL/L (24-32); TOTAL PROTEIN 5.8 G/DL (6.4-8.2); eGFR > 90 ML/MIN
[2021-01-16] MEDS: levoTHYROXINE 75mcg tablet OGT SCH (07:27)
[2021-01-16] MEDS: lansoprazole 15mg solutab OGT SCH (07:27)
[2021-01-16] MEDS: docusate sodium 100mg/10ml UD cup OGT SCH ×2 (07:28→20:00)
[2021-01-16] MEDS: enoxaparin 100mg/ml syringe SUBCUT SCH ×2 (07:30→21:40)
[2021-01-16] MEDS: amLODIPine 5mg tablet OGT SCH (07:32)
[2021-01-16] MEDS: lactobacillus rhamnosus 10,000 MMU CELLS/CAPSULE OGT SCH ×2 (07:41→21:39)
[2021-01-16] MEDS: nystatin 15 GM powder TP SCH ×3 (07:41→21:39)
[2021-01-16] MEDS: dexamethasone inj 5 MG in normal saline 50ml IV soln 50 ML IV SCH (07:41)
[2021-01-16 07:51] LABS: ANISOCYTOSIS 2+; PLATELET ESTIMATE DECREASED
[2021-01-16 07:52] LABS: POLYCHROMASIA FEW
[2021-01-16] MEDS: budesonide 0.5mg/2ml UD nebule IH SCH (08:00)
[2021-01-16] MEDS: potassium Cl 20 mEq SR tablet PO PRN ×2 (08:18→11:56)
[2021-01-16] MEDS: FENTANYL-0.9 % NACL/PF 100 ML IV PRN ×2 (10:35→23:36)
[2021-01-16] MEDS: midazolam 100mg in NS 100ml 100 ML IV PRN (11:58)
[2021-01-16 13:57] LABS: PHOSPHORUS 3.5 MG/DL (2.3-4.5); POTASSIUM 3.6 MMOL/L (3.5-5.1)
[2021-01-16] MEDS: insulin glargine (Lantus) pen - multi-dose SQ SCH (21:39)
[2021-01-16] MEDS: acetaminophen 325mg/10.15ml oral unit dose solution OGT PRN (23:52)
[2021-01-17] VITALS (24 sets, daily range): BP systolic 89–126; BP diastolic 49–74
[2021-01-17] MEDS: furosemide 40mg/4ml inj IV SCH ×3 (01:15→15:55)
[2021-01-17] MEDS: lactulose 20gm/30ml cup PO SCH ×4 (01:15→21:03)
[2021-01-17] MEDS: metolazone 2.5mg tablet PO SCH ×3 (01:15→15:55)
[2021-01-17] MEDS: insulin regular, human U-100 3ml vial - multi-dose SQ SCH ×4 (02:19→21:01)
[2021-01-17 03:02] LABS: D-DIMER 0.52 MG/L FEU (0-0.50)
[2021-01-17 03:03] LABS: C-REACTIVE PROTEIN 0.18 MG/DL (0.0-0.5)
[2021-01-17 03:06] LABS: POTASSIUM 2.9 MMOL/L (3.5-5.1)
[2021-01-17] MEDS: potassium Cl 20 mEq SR tablet PO PRN ×4 (03:26→15:19)
[2021-01-17] MEDS: midazolam 100mg in NS 100ml 100 ML IV PRN ×2 (03:30→16:46)
[2021-01-17 03:47] LABS: ABG BASE EXCESS 16.3 mmol/L (-2.0-2.0); ABG HCO3 42.3 mmol/L (22.0-26.0); ABG OXYGEN SATURATION 92.6 % (94-97); ABG PCO2 (T) 60.3 mmHg (32.0-45.0); ABG PO2 (T) 70.8 mmHg (75.0-100.0); ALLEN'S TEST Modified; FCOHb 0.9 % (0.0-3.9); FMetHb 0.3 % (0.0-1.5); FO2Hb 91.5 % (94-97); PATIENT TEMPERATURE 38.2; PEEP 8 cm H2O; RESPIRATORY RATE 22 b/min; TIDAL VOLUME 450 mL; TOTAL HEMOGLOBIN 12.3 G/dl (12.0-16.0)
--- NOTE | 2021-01-17 06:28 | NUR ---
Patient in room [facility] 2013. I have received report from Nic QUINTANA and had the opportunity to ask questions and assume patient care. Addendum: 01/17/21 at 3429 by Susanna Alexander RN Amended: Links added.
[2021-01-17] MEDS: lactobacillus rhamnosus 10,000 MMU CELLS/CAPSULE OGT SCH ×2 (07:19→21:02)
[2021-01-17] MEDS: lansoprazole 15mg solutab OGT SCH (07:19)
[2021-01-17] MEDS: levoTHYROXINE 75mcg tablet OGT SCH (07:19)
[2021-01-17] MEDS: docusate sodium 100mg/10ml UD cup OGT SCH ×2 (07:19→20:00)
[2021-01-17] MEDS: enoxaparin 100mg/ml syringe SUBCUT SCH ×2 (07:20→21:02)
[2021-01-17] MEDS: amLODIPine 5mg tablet OGT SCH (07:20)
[2021-01-17] MEDS: dexamethasone inj 5 MG in normal saline 50ml IV soln 50 ML IV SCH (07:35)
[2021-01-17] MEDS: nystatin 15 GM powder TP SCH ×3 (07:39→21:03)
[2021-01-17 07:49] LABS: BASOPHILS # (AUTO) 0.1 X10'3 (0-0.2); BASOPHILS % (AUTO) 0.5 % (0-1); EOSINOPHILS # (AUTO) 0.5 X10'3 (0-0.9); EOSINOPHILS % (AUTO) 3.9 % (0-6); HEMATOCRIT 34.3 % (35.0-45.0); HEMOGLOBIN 10.5 g/dl (12.0-16.0); LYMPHOCYTES # (AUTO) 1.8 X10'3 (1.1-4.8); LYMPHOCYTES % (AUTO) 14.6 % (21-51); MEAN CORPUSCULAR HEMOGLOBIN 25.5 PG (27.0-31.0); MEAN CORPUSCULAR HGB CONC 30.7 g/dL (33.0-36.5); MEAN CORPUSCULAR VOLUME 83.1 FL (78-98); MEAN PLATELET VOLUME 8.7 FL (7.4-10.4); MONOCYTES # (AUTO) 1.6 X10'3 (0-0.9); MONOCYTES % (AUTO) 12.5 % (2-12); NEUTROPHILS # (AUTO) 8.6 X10'3 (1.8-7.7); NEUTROPHILS % (AUTO) 68.5 % (42-75); PLATELET COUNT 123 X10'3 (140-440); RED BLOOD COUNT 4.13 X10'6 (4.20-5.60); RED CELL DISTRIBUTION WIDTH 20.9 % (11.5-14.5); WHITE BLOOD COUNT 12.6 X10'3 (4.5-11.0)
[2021-01-17] MEDS: FENTANYL-0.9 % NACL/PF 100 ML IV PRN ×2 (07:49→16:46)
[2021-01-17 07:57] LABS: ALANINE AMINOTRANSFERASE 86 U/L (12-78); ALBUMIN 2.6 G/DL (3.4-5.0); ALBUMIN/GLOBULIN RATIO 0.8 (1.1-1.5); ALKALINE PHOSPHATASE 120 IU/L (46-116); ANION GAP -1 (8-16); ASPARTATE AMINO TRANSFERASE 49 U/L (10-37); BILIRUBIN,TOTAL 0.7 MG/DL (0.1-1.0); BLOOD UREA NITROGEN 49 MG/DL (7-18); CALCIUM 8.1 MG/DL (8.5-10.1); CHLORIDE 104 MMOL/L (99-107); CREATININE 0.71 MG/DL (0.40-0.90); GLUCOSE 116 MG/DL (70-104); PHOSPHORUS 3.7 MG/DL (2.3-4.5); SODIUM 144 MMOL/L (135-145); TOTAL PROTEIN 5.8 G/DL (6.4-8.2); eGFR 86 ML/MIN
[2021-01-17] MEDS: budesonide 0.5mg/2ml UD nebule IH SCH ×3 (08:00→20:00)
[2021-01-17 08:01] LABS: POTASSIUM 2.6 MMOL/L (3.5-5.1); TOTAL CARBON DIOXIDE 40.6 MMOL/L (24-32)
[2021-01-17 08:16] LABS: ANISOCYTOSIS 3+; HYPOCHROMASIA 1+; PLATELET ESTIMATE DECREASED; POLYCHROMASIA 1+; TEAR DROP CELLS FEW
[2021-01-17 08:17] LABS: STOMATOCYTES 1+
--- NOTE | 2021-01-17 08:55 | NUR ---
Dr. Wooten in to see pt. Updated on pt. labs (K+2, C02 40.6), vent settings, etc. Order rec'd for saline nebulizer.
[2021-01-17] MEDS ORDERED: mineral oil/petrolatum ophthal oint EACHEYE PRN (09:10)
[2021-01-17] MEDS: sodium chloride 3% for inhalation 4ml nebule IH SCH ×2 (16:31→19:13)
--- NOTE | 2021-01-17 18:06 | NUR ---
Problems reprioritized. Patient report given, questions answered & plan of care reviewed with Nic QUINTANA. Addendum: 01/17/21 at 1806 by Susanna Alexander RN Amended: Links added.
[2021-01-17] MEDS: insulin glargine (Lantus) pen - multi-dose SQ SCH (20:59)
[2021-01-17] MEDS: albuterol 2.5 MG/3 ML nebule NEB PRN (21:46)
[2021-01-18] VITALS (23 sets, daily range): BP systolic 80–134; BP diastolic 45–79
[2021-01-18] MEDS: potassium Cl 20 mEq SR tablet PO PRN ×2 (00:12→05:04)
[2021-01-18] MEDS: furosemide 40mg/4ml inj IV SCH ×3 (00:12→15:34)
[2021-01-18] MEDS: metolazone 2.5mg tablet PO SCH ×3 (00:13→15:34)
[2021-01-18] MEDS: lactulose 20gm/30ml cup PO SCH ×4 (02:00→20:20)
[2021-01-18 02:31] LABS: ABG HCO3 37.4 mmol/L (22.0-26.0); ABG OXYGEN SATURATION 93.7 % (94-97); ABG PCO2 (T) 51.2 mmHg (32.0-45.0); ALLEN'S TEST POSITIVE; FCOHb 0.9 % (0.0-3.9); FMetHb 0.2 % (0.0-1.5); FO2Hb 92.7 % (94-97); PATIENT TEMPERATURE 36.4; PEEP 10 cm H2O; RESPIRATORY RATE 22 b/min; TIDAL VOLUME 450 mL; TOTAL HEMOGLOBIN 11.8 G/dl (12.0-16.0)
[2021-01-18 03:51] LABS: BASOPHILS % (AUTO) 0.3 % (0-1); EOSINOPHILS # (AUTO) 0.5 X10'3 (0-0.9); EOSINOPHILS % (AUTO) 3.3 % (0-6); HEMATOCRIT 33.6 % (35.0-45.0); HEMOGLOBIN 10.6 g/dl (12.0-16.0); LYMPHOCYTES # (AUTO) 1.2 X10'3 (1.1-4.8); LYMPHOCYTES % (AUTO) 8.7 % (21-51); MEAN CORPUSCULAR HGB CONC 31.4 g/dL (33.0-36.5); MEAN CORPUSCULAR VOLUME 82.6 FL (78-98); MEAN PLATELET VOLUME 8.6 FL (7.4-10.4); MONOCYTES # (AUTO) 0.9 X10'3 (0-0.9); MONOCYTES % (AUTO) 6.5 % (2-12); NEUTROPHILS # (AUTO) 11.2 X10'3 (1.8-7.7); NEUTROPHILS % (AUTO) 81.2 % (42-75); PLATELET COUNT 108 X10'3 (140-440); RED BLOOD COUNT 4.07 X10'6 (4.20-5.60); RED CELL DISTRIBUTION WIDTH 20.7 % (11.5-14.5); WHITE BLOOD COUNT 13.8 X10'3 (4.5-11.0)
[2021-01-18 04:15] LABS: ALBUMIN 2.7 G/DL (3.4-5.0); ANION GAP 0 (8-16); BLOOD UREA NITROGEN 43 MG/DL (7-18); BUN/CREATININE RATIO 70.5 (6.6-38.0); C-REACTIVE PROTEIN 0.11 MG/DL (0.0-0.5); CALCIUM 8.6 MG/DL (8.5-10.1); CHLORIDE 102 MMOL/L (99-107); CREATININE 0.61 MG/DL (0.40-0.90); GLUCOSE 126 MG/DL (70-104); PREALBUMIN 29.8 MG/DL (19-36); SODIUM 143 MMOL/L (135-145); eGFR > 90 ML/MIN
[2021-01-18 04:24] LABS: D-DIMER 0.63 MG/L FEU (0-0.50)
[2021-01-18 04:46] LABS: POTASSIUM 2.8 MMOL/L (3.5-5.1)
[2021-01-18 04:47] LABS: TOTAL CARBON DIOXIDE 41.4 MMOL/L (24-32)
[2021-01-18] MEDS: FENTANYL-0.9 % NACL/PF 100 ML IV PRN ×2 (04:57→14:22)
--- NOTE | 2021-01-18 06:24 | NUR ---
Patient in room CICU 2012. I have received report from Nci QUINTANA and had the opportunity to ask questions and assume patient care. CXR not done. Order placed for CXR.
[2021-01-18] MEDS: sodium chloride 3% for inhalation 4ml nebule IH SCH ×2 (07:41→19:30)
[2021-01-18] MEDS: insulin regular, human U-100 3ml vial - multi-dose SQ SCH ×3 (07:49→20:26)
[2021-01-18] MEDS: docusate sodium 100mg/10ml UD cup OGT SCH ×2 (07:52→20:20)
[2021-01-18] MEDS: levoTHYROXINE 75mcg tablet OGT SCH (07:53)
[2021-01-18] MEDS: amLODIPine 5mg tablet OGT SCH (07:53)
[2021-01-18] MEDS: lansoprazole 15mg solutab OGT SCH (07:53)
[2021-01-18] MEDS: lactobacillus rhamnosus 10,000 MMU CELLS/CAPSULE OGT SCH ×2 (07:53→20:20)
[2021-01-18] MEDS: dexamethasone inj 5 MG in normal saline 50ml IV soln 50 ML IV SCH (07:54)
[2021-01-18] MEDS: nystatin 15 GM powder TP SCH ×3 (07:54→20:28)
[2021-01-18] MEDS: enoxaparin 100mg/ml syringe SUBCUT SCH ×2 (07:54→20:21)
[2021-01-18] MEDS: budesonide 0.5mg/2ml UD nebule IH SCH (07:55)
[2021-01-18] MEDS ORDERED: POTASSIUM BICARB 20meq eff tab 20 MEQ TABLET.EFF PO PRN (09:31)
[2021-01-18] MEDS: POTASSIUM BICARB 20meq eff tab 20 MEQ TABLET.EFF PO PRN ×4 (10:20→22:41)
[2021-01-18] MEDS: midazolam 100mg in NS 100ml 100 ML IV PRN (15:32)
--- NOTE | 2021-01-18 18:15 | NUR ---
Problems reprioritized. Patient report given, questions answered & plan of care reviewed with Gracie RN.
[2021-01-18] MEDS: albuterol 2.5 MG/3 ML nebule NEB PRN (19:30)
[2021-01-18] MEDS: insulin glargine (Lantus) pen - multi-dose SQ SCH (20:28)
[2021-01-19] VITALS (24 sets, daily range): BP systolic 86–137; BP diastolic 50–78
[2021-01-19] MEDS: furosemide 40mg/4ml inj IV SCH ×3 (00:49→15:29)
[2021-01-19] MEDS: metolazone 2.5mg tablet PO SCH ×3 (00:49→15:30)
[2021-01-19] MEDS: FENTANYL-0.9 % NACL/PF 100 ML IV PRN ×2 (00:51→11:28)
[2021-01-19] MEDS: insulin regular, human U-100 3ml vial - multi-dose SQ SCH ×4 (02:03→22:07)
[2021-01-19] MEDS: lactulose 20gm/30ml cup PO SCH ×4 (02:06→19:35)
[2021-01-19 02:28] LABS: BASOPHILS % (AUTO) 0.4 % (0-1); EOSINOPHILS # (AUTO) 0.4 X10'3 (0-0.9); EOSINOPHILS % (AUTO) 3.7 % (0-6); HEMATOCRIT 31.9 % (35.0-45.0); HEMOGLOBIN 9.9 g/dl (12.0-16.0); LYMPHOCYTES # (AUTO) 0.9 X10'3 (1.1-4.8); LYMPHOCYTES % (AUTO) 9.1 % (21-51); MEAN CORPUSCULAR HEMOGLOBIN 26.2 PG (27.0-31.0); MEAN CORPUSCULAR HGB CONC 31.2 g/dL (33.0-36.5); MEAN CORPUSCULAR VOLUME 84.1 FL (78-98); MEAN PLATELET VOLUME 8.7 FL (7.4-10.4); MONOCYTES # (AUTO) 0.7 X10'3 (0-0.9); MONOCYTES % (AUTO) 7.1 % (2-12); NEUTROPHILS # (AUTO) 7.9 X10'3 (1.8-7.7); NEUTROPHILS % (AUTO) 79.7 % (42-75); PLATELET COUNT 93 X10'3 (140-440); RED BLOOD COUNT 3.79 X10'6 (4.20-5.60); RED CELL DISTRIBUTION WIDTH 21.4 % (11.5-14.5); WHITE BLOOD COUNT 9.9 X10'3 (4.5-11.0)
[2021-01-19 02:40] LABS: C-REACTIVE PROTEIN 0.28 MG/DL (0.0-0.5); TRIGLYCERIDES 110 MG/DL (20-135)
[2021-01-19 03:38] LABS: ABG BASE EXCESS 16.9 mmol/L (-2.0-2.0); ABG HCO3 42.2 mmol/L (22.0-26.0); ABG PCO2 (T) 54.2 mmHg (32.0-45.0); ABG PO2 (T) 68.3 mmHg (75.0-100.0); ALLEN'S TEST POSITIVE; FCOHb 0.8 % (0.0-3.9); FMetHb 0.3 % (0.0-1.5); PATIENT TEMPERATURE 36.9; PEEP 10 cm H2O; RESPIRATORY RATE 22 b/min; TIDAL VOLUME 450 mL; TOTAL HEMOGLOBIN 11.1 G/dl (12.0-16.0)
[2021-01-19 03:42] LABS: D-DIMER 0.45 MG/L FEU (0-0.50)
[2021-01-19 03:45] LABS: ANISOCYTOSIS 3+; PLATELET ESTIMATE DECREASED
[2021-01-19 03:46] LABS: POLYCHROMASIA FEW
[2021-01-19 03:47] LABS: HYPOCHROMASIA 1+; TEAR DROP CELLS FEW
[2021-01-19 03:48] LABS: STOMATOCYTES FEW
[2021-01-19] MEDS: midazolam 100mg in NS 100ml 100 ML IV PRN ×2 (04:26→14:41)
[2021-01-19 05:43] LABS: ALBUMIN 2.5 G/DL (3.4-5.0); ANION GAP 2 (8-16); BLOOD UREA NITROGEN 45 MG/DL (7-18); CALCIUM 8.6 MG/DL (8.5-10.1); CHLORIDE 103 MMOL/L (99-107); GLUCOSE 114 MG/DL (70-104); SODIUM 146 MMOL/L (135-145); eGFR > 90 ML/MIN
[2021-01-19 06:02] LABS: TOTAL CARBON DIOXIDE 41.3 MMOL/L (24-32)
--- NOTE | 2021-01-19 06:25 | NUR ---
Patient in room CICU 2013. I have received report from Gracie QUINTANA and had the opportunity to ask questions and assume patient care.
[2021-01-19] MEDS: budesonide 0.5mg/2ml UD nebule IH SCH (07:42)
[2021-01-19] MEDS: sodium chloride 3% for inhalation 4ml nebule IH SCH ×2 (07:42→19:36)
[2021-01-19] MEDS: albuterol 2.5 MG/3 ML nebule NEB PRN ×2 (07:42→19:36)
[2021-01-19] MEDS: docusate sodium 100mg/10ml UD cup OGT SCH ×2 (07:45→19:35)
[2021-01-19] MEDS: amLODIPine 5mg tablet OGT SCH (07:46)
[2021-01-19] MEDS: levoTHYROXINE 75mcg tablet OGT SCH (07:46)
[2021-01-19] MEDS: lansoprazole 15mg solutab OGT SCH (07:46)
[2021-01-19] MEDS: enoxaparin 100mg/ml syringe SUBCUT SCH ×2 (07:47→19:35)
[2021-01-19] MEDS: lactobacillus rhamnosus 10,000 MMU CELLS/CAPSULE OGT SCH ×2 (07:47→19:35)
[2021-01-19] MEDS: nystatin 15 GM powder TP SCH ×3 (07:48→21:00)
[2021-01-19] MEDS ORDERED: dexamethasone inj 4 MG in normal saline 50ml IV soln 50 ML IV SCH (08:00)
--- NOTE | 2021-01-19 11:53 | NUR ---
Reassessment: Pt remains intubated and tolerating TF at goal rate with GRV WNL. LBM 01/18, documented with two BMs moderate in size. No changes to nutrition recommendations at this time. Will continue to follow closely. Recommendations: 1) Continuous Vital High Protein via OGT at 60 mL/hr. To provide 1440 mL total volume/day, 1440 kcal, 126 g protein, and 1204 mL water; Okay to substitute using Vital AF given product shortage 2) Additional 150 mL water flush Q4H per MD; monitor serum Na 3) Prealbumin q Monday/, daily scaled weights 4) Routine bowel care Addendum: 01/19/21 at [address] Amended: Links added.
--- NOTE | 2021-01-19 14:50 | NUR ---
RN notified Dr. Wooten that dtr. Solorzano would like an update.
--- NOTE | 2021-01-19 17:34 | NUR ---
Dr. Johnson here to see pt.
--- NOTE | 2021-01-19 18:00 | NUR ---
Problems reprioritized. Patient report given, questions answered & plan of care reviewed with NOC RN.
[2021-01-19] MEDS: insulin glargine (Lantus) pen - multi-dose SQ SCH (21:00)
[2021-01-20] VITALS (24 sets, daily range): BP systolic 101–151; BP diastolic 52–86
[2021-01-20] MEDS: metolazone 2.5mg tablet PO SCH ×4 (00:37→23:35)
[2021-01-20] MEDS: CEFEPIME 2gm in D5W 50mL 50 ML IV SCH ×4 (00:37→23:36)
[2021-01-20] MEDS: furosemide 40mg/4ml inj IV SCH ×4 (00:38→23:35)
[2021-01-20] MEDS: lactulose 20gm/30ml cup PO SCH ×4 (02:00→20:01)
[2021-01-20 02:18] LABS: ABG BASE EXCESS 21.9 mmol/L (-2.0-2.0); ABG HCO3 47.4 mmol/L (22.0-26.0); ABG OXYGEN SATURATION 93.4 % (94-97); ABG PCO2 (T) 59.3 mmHg (32.0-45.0); ABG PO2 (T) 71.8 mmHg (75.0-100.0); ALLEN'S TEST POSITIVE; FCOHb 0.6 % (0.0-3.9); FMetHb 0.2 % (0.0-1.5); FO2Hb 92.7 % (94-97); PATIENT TEMPERATURE 38.1; PEEP 10 cm H2O; RESPIRATORY RATE 22 b/min; TIDAL VOLUME 450 mL; TOTAL HEMOGLOBIN 11.3 G/dl (12.0-16.0)
[2021-01-20] MEDS: insulin regular, human U-100 3ml vial - multi-dose SQ SCH ×4 (03:37→20:25)
[2021-01-20 04:06] LABS: BASOPHILS # (AUTO) 0.1 X10'3 (0-0.2); BASOPHILS % (AUTO) 0.8 % (0-1); EOSINOPHILS # (AUTO) 0.5 X10'3 (0-0.9); EOSINOPHILS % (AUTO) 4.1 % (0-6); HEMATOCRIT 32.9 % (35.0-45.0); HEMOGLOBIN 10.2 g/dl (12.0-16.0); LYMPHOCYTES # (AUTO) 1.3 X10'3 (1.1-4.8); LYMPHOCYTES % (AUTO) 10.5 % (21-51); MEAN PLATELET VOLUME 8.9 FL (7.4-10.4); MONOCYTES # (AUTO) 0.8 X10'3 (0-0.9); MONOCYTES % (AUTO) 6.9 % (2-12); NEUTROPHILS # (AUTO) 9.4 X10'3 (1.8-7.7); NEUTROPHILS % (AUTO) 77.7 % (42-75); PLATELET COUNT 106 X10'3 (140-440); RED BLOOD COUNT 3.91 X10'6 (4.20-5.60); RED CELL DISTRIBUTION WIDTH 20.9 % (11.5-14.5)
[2021-01-20 04:09] LABS: D-DIMER 0.55 MG/L FEU (0-0.50)
[2021-01-20 04:12] LABS: ALBUMIN 2.6 G/DL (3.4-5.0); ANION GAP 2 (8-16); BLOOD UREA NITROGEN 52 MG/DL (7-18); BUN/CREATININE RATIO 69.3 (6.6-38.0); C-REACTIVE PROTEIN 0.38 MG/DL (0.0-0.5); CALCIUM 8.2 MG/DL (8.5-10.1); CHLORIDE 100 MMOL/L (99-107); CREATININE 0.75 MG/DL (0.40-0.90); GLUCOSE 146 MG/DL (70-104); SODIUM 146 MMOL/L (135-145); TRIGLYCERIDES 107 MG/DL (20-135); eGFR 81 ML/MIN
[2021-01-20 04:19] LABS: POTASSIUM 2.5 MMOL/L (3.5-5.1); TOTAL CARBON DIOXIDE 43.7 MMOL/L (24-32)
[2021-01-20] MEDS: acetaminophen 325mg/10.15ml oral unit dose solution OGT PRN (04:26)
[2021-01-20] MEDS: POTASSIUM BICARB 20meq eff tab 20 MEQ TABLET.EFF PO PRN (04:26)
[2021-01-20 04:40] LABS: PLATELET ESTIMATE DECREASED
[2021-01-20 04:41] LABS: ANISOCYTOSIS 3+; POLYCHROMASIA FEW
[2021-01-20 04:42] LABS: HYPOCHROMASIA 1+
[2021-01-20 04:43] LABS: STOMATOCYTES FEW
[2021-01-20] MEDS: levoTHYROXINE 75mcg tablet OGT SCH (07:52)
[2021-01-20] MEDS: lansoprazole 15mg solutab OGT SCH (07:53)
[2021-01-20] MEDS: lactobacillus rhamnosus 10,000 MMU CELLS/CAPSULE OGT SCH ×2 (07:53→20:01)
[2021-01-20] MEDS: amLODIPine 5mg tablet OGT SCH (07:53)
[2021-01-20] MEDS: docusate sodium 100mg/10ml UD cup OGT SCH ×2 (07:53→20:01)
[2021-01-20] MEDS: enoxaparin 100mg/ml syringe SUBCUT SCH ×2 (07:54→20:02)
[2021-01-20] MEDS: vancomycin/NS 1 GM ADD-VANTAGE 250 ML IV SCH ×2 (07:55→17:06)
[2021-01-20] MEDS ORDERED: dexamethasone sod phosphate 4mg/ml inj. IV SCH (08:00)
[2021-01-20] MEDS: nystatin 15 GM powder TP SCH ×3 (08:00→20:02)
[2021-01-20] MEDS ORDERED: NORMAL SALINE IV SCH (08:00)
[2021-01-20] MEDS ORDERED: DEXAMETHASONE IV SCH (08:00)
[2021-01-20] MEDS: budesonide 0.5mg/2ml UD nebule IH SCH (08:08)
[2021-01-20] MEDS: sodium chloride 3% for inhalation 4ml nebule IH SCH ×2 (08:08→19:18)
[2021-01-20] MEDS: albuterol 2.5 MG/3 ML nebule NEB PRN ×2 (08:08→19:18)
[2021-01-20] MEDS: FENTANYL-0.9 % NACL/PF 100 ML IV PRN ×2 (08:42→19:08)
[2021-01-20] MEDS: metoclopramide 5 mg/ml inj IV SCH ×2 (12:47→20:04)
--- NOTE | 2021-01-20 13:17 | NUR ---
F/u: Per RT at critical care rounds pt with a large amount of secretions that appear to be TF. Per MD TF to hold temporarily for KUB to assess tube placement and pt to be started on routine Reglan. Per KUB report OG tube adjacent to the gastric antrum and/or duodenum. Addendum: 01/20/21 at [address] Amended: Links added.
--- NOTE | 2021-01-20 13:49 | NUR ---
tube feeds held for several hours. restarted per md order at 30cc
[2021-01-20] MEDS: potassium Cl 40MEQ/250ML bag 270 ML IV PRN (15:19)
[2021-01-20] MEDS: midazolam 100mg in NS 100ml 100 ML IV PRN (15:24)
[2021-01-20] MEDS: insulin glargine (Lantus) pen - multi-dose SQ SCH (20:23)
[2021-01-20] MEDS ORDERED: VANCOMYCIN LEVEL IV ONE (23:30)
[2021-01-21] VITALS (24 sets, daily range): BP systolic 92–139; BP diastolic 58–89
[2021-01-21] MEDS: vancomycin/NS 1 GM ADD-VANTAGE 250 ML IV SCH ×4 (01:13→23:56)
[2021-01-21] MEDS: midazolam 100mg in NS 100ml 100 ML IV PRN ×3 (01:13→20:07)
[2021-01-21] MEDS: insulin regular, human U-100 3ml vial - multi-dose SQ SCH ×4 (01:52→21:28)
[2021-01-21] MEDS: lactulose 20gm/30ml cup PO SCH ×4 (02:14→20:06)
[2021-01-21] MEDS: FENTANYL-0.9 % NACL/PF 100 ML IV PRN ×3 (02:42→23:56)
[2021-01-21 03:40] LABS: ABG BASE EXCESS 14.4 mmol/L (-2.0-2.0); ABG HCO3 38.2 mmol/L (22.0-26.0); ABG OXYGEN SATURATION 95.3 % (94-97); ABG PCO2 (T) 44.2 mmHg (32.0-45.0); ABG PO2 (T) 72.3 mmHg (75.0-100.0); ALLEN'S TEST POSITIVE; FCOHb 0.7 % (0.0-3.9); FMetHb 0.2 % (0.0-1.5); FO2Hb 94.4 % (94-97); PATIENT TEMPERATURE 36.9; PEEP 10 cm H2O; RESPIRATORY RATE 22 b/min; TIDAL VOLUME 425 mL
[2021-01-21 04:03] LABS: BASOPHILS # (AUTO) 0.1 X10'3 (0-0.2); BASOPHILS % (AUTO) 0.7 % (0-1); EOSINOPHILS # (AUTO) 0.6 X10'3 (0-0.9); HEMATOCRIT 32.7 % (35.0-45.0); LYMPHOCYTES # (AUTO) 1.2 X10'3 (1.1-4.8); LYMPHOCYTES % (AUTO) 13.2 % (21-51); MEAN CORPUSCULAR HEMOGLOBIN 26.1 PG (27.0-31.0); MEAN CORPUSCULAR HGB CONC 30.5 g/dL (33.0-36.5); MEAN CORPUSCULAR VOLUME 85.6 FL (78-98); MEAN PLATELET VOLUME 8.7 FL (7.4-10.4); MONOCYTES # (AUTO) 0.6 X10'3 (0-0.9); MONOCYTES % (AUTO) 6.4 % (2-12); NEUTROPHILS # (AUTO) 6.7 X10'3 (1.8-7.7); NEUTROPHILS % (AUTO) 72.7 % (42-75); PLATELET COUNT 104 X10'3 (140-440); RED BLOOD COUNT 3.82 X10'6 (4.20-5.60); RED CELL DISTRIBUTION WIDTH 21.7 % (11.5-14.5); WHITE BLOOD COUNT 9.2 X10'3 (4.5-11.0)
[2021-01-21 04:13] LABS: D-DIMER 0.64 MG/L FEU (0-0.50)
[2021-01-21 04:14] LABS: ALBUMIN 2.5 G/DL (3.4-5.0); ANION GAP 6 (8-16); BLOOD UREA NITROGEN 42 MG/DL (7-18); BUN/CREATININE RATIO 53.2 (6.6-38.0); C-REACTIVE PROTEIN 0.37 MG/DL (0.0-0.5); CALCIUM 8.3 MG/DL (8.5-10.1); CHLORIDE 104 MMOL/L (99-107); CREATININE 0.79 MG/DL (0.40-0.90); GLUCOSE 134 MG/DL (70-104); PREALBUMIN 20.7 MG/DL (19-36); SODIUM 147 MMOL/L (135-145); TOTAL CARBON DIOXIDE 36.9 MMOL/L (24-32); eGFR 76 ML/MIN
[2021-01-21 04:18] LABS: POTASSIUM 2.4 MMOL/L (3.5-5.1)
[2021-01-21 05:55] LABS: PLATELET ESTIMATE DECREASED
[2021-01-21 05:56] LABS: ANISOCYTOSIS 3+; HYPOCHROMASIA 1+; POLYCHROMASIA 1+
[2021-01-21] MEDS: potassium Cl 40MEQ/250ML bag 270 ML IV PRN ×2 (06:51→09:17)
[2021-01-21] MEDS: budesonide 0.5mg/2ml UD nebule IH SCH (07:22)
[2021-01-21] MEDS: albuterol 2.5 MG/3 ML nebule NEB PRN ×2 (07:22→19:23)
[2021-01-21] MEDS: sodium chloride 3% for inhalation 4ml nebule IH SCH ×2 (07:23→19:23)
[2021-01-21] MEDS: DEXAMETHASONE IV SCH (07:45)
[2021-01-21] MEDS: NORMAL SALINE IV SCH (07:45)
[2021-01-21] MEDS: CEFEPIME 2gm in D5W 50mL 50 ML IV SCH ×3 (07:45→23:18)
[2021-01-21] MEDS: lactobacillus rhamnosus 10,000 MMU CELLS/CAPSULE OGT SCH ×2 (07:48→20:06)
[2021-01-21] MEDS: levoTHYROXINE 75mcg tablet OGT SCH (07:48)
[2021-01-21] MEDS: enoxaparin 100mg/ml syringe SUBCUT SCH ×2 (07:48→20:08)
[2021-01-21] MEDS: furosemide 40mg/4ml inj IV SCH ×3 (07:48→23:18)
[2021-01-21] MEDS: lansoprazole 15mg solutab OGT SCH (07:48)
[2021-01-21] MEDS: metoclopramide 5 mg/ml inj IV SCH ×3 (07:48→20:11)
[2021-01-21] MEDS: docusate sodium 100mg/10ml UD cup OGT SCH ×2 (07:49→20:00)
[2021-01-21] MEDS: metolazone 2.5mg tablet PO SCH ×3 (07:49→23:55)
[2021-01-21] MEDS: amLODIPine 5mg tablet OGT SCH (07:50)
[2021-01-21] MEDS: nystatin 15 GM powder TP SCH ×3 (08:00→20:09)
[2021-01-21] MEDS ORDERED: albumin (Human) 5% 250ml 250 ML IV ONE (12:55)
[2021-01-21 16:36] LABS: ALBUMIN 2.5 G/DL (3.4-5.0); ANION GAP 5 (8-16); BLOOD UREA NITROGEN 39 MG/DL (7-18); BUN/CREATININE RATIO 76.5 (6.6-38.0); CALCIUM 7.6 MG/DL (8.5-10.1); CHLORIDE 109 MMOL/L (99-107); CREATININE 0.51 MG/DL (0.40-0.90); GLUCOSE 152 MG/DL (70-104); POTASSIUM 5.5 MMOL/L (3.5-5.1); SODIUM 148 MMOL/L (135-145); eGFR > 90 ML/MIN
[2021-01-21] MEDS: insulin glargine (Lantus) pen - multi-dose SQ SCH (21:29)
[2021-01-22] VITALS (24 sets, daily range): BP systolic 90–145; BP diastolic 49–81
[2021-01-22] MEDS: lactulose 20gm/30ml cup PO SCH ×4 (01:46→20:00)
[2021-01-22 02:32] LABS: BASOPHILS # (AUTO) 0.1 X10'3 (0-0.2); BASOPHILS % (AUTO) 1.3 % (0-1); EOSINOPHILS # (AUTO) 0.8 X10'3 (0-0.9); EOSINOPHILS % (AUTO) 10.2 % (0-6); HEMOGLOBIN 10.1 g/dl (12.0-16.0); LYMPHOCYTES # (AUTO) 1.3 X10'3 (1.1-4.8); LYMPHOCYTES % (AUTO) 16.6 % (21-51); MEAN CORPUSCULAR HEMOGLOBIN 26.8 PG (27.0-31.0); MEAN CORPUSCULAR HGB CONC 31.6 g/dL (33.0-36.5); MEAN PLATELET VOLUME 8.7 FL (7.4-10.4); MONOCYTES # (AUTO) 0.6 X10'3 (0-0.9); MONOCYTES % (AUTO) 7.6 % (2-12); NEUTROPHILS # (AUTO) 5.1 X10'3 (1.8-7.7); NEUTROPHILS % (AUTO) 64.3 % (42-75); PLATELET COUNT 93 X10'3 (140-440); RED BLOOD COUNT 3.76 X10'6 (4.20-5.60); RED CELL DISTRIBUTION WIDTH 21.8 % (11.5-14.5); WHITE BLOOD COUNT 7.9 X10'3 (4.5-11.0)
[2021-01-22] MEDS: insulin regular, human U-100 3ml vial - multi-dose SQ SCH ×4 (02:32→21:28)
[2021-01-22 02:41] LABS: ALBUMIN 2.5 G/DL (3.4-5.0); ANION GAP 6 (8-16); BLOOD UREA NITROGEN 42 MG/DL (7-18); BUN/CREATININE RATIO 67.7 (6.6-38.0); CALCIUM 8.2 MG/DL (8.5-10.1); CHLORIDE 106 MMOL/L (99-107); CREATININE 0.62 MG/DL (0.40-0.90); GLUCOSE 144 MG/DL (70-104); SODIUM 148 MMOL/L (135-145); TOTAL CARBON DIOXIDE 35.7 MMOL/L (24-32); eGFR > 90 ML/MIN
[2021-01-22 02:49] LABS: POTASSIUM 2.5 MMOL/L (3.5-5.1)
[2021-01-22 03:35] LABS: PLATELET ESTIMATE DECREASED
[2021-01-22 03:36] LABS: ANISOCYTOSIS 3+; HYPOCHROMASIA 1+; POLYCHROMASIA FEW
[2021-01-22 03:37] LABS: ABG BASE EXCESS 8.8 mmol/L (-2.0-2.0); ABG HCO3 33.1 mmol/L (22.0-26.0); ABG OXYGEN SATURATION 96.2 % (94-97); ALLEN'S TEST POSITIVE; FCOHb 0.6 % (0.0-3.9); FMetHb 0.1 % (0.0-1.5); FO2Hb 95.5 % (94-97); PATIENT TEMPERATURE 37.6; PEEP 10 cm H2O; RESPIRATORY RATE 22 b/min; TIDAL VOLUME 425 mL; TOTAL HEMOGLOBIN 11.3 G/dl (12.0-16.0)
[2021-01-22] MEDS: potassium Cl 40MEQ/250ML bag 270 ML IV PRN ×2 (05:13→12:36)
[2021-01-22] MEDS: amLODIPine 5mg tablet OGT SCH (07:20)
[2021-01-22] MEDS: lactobacillus rhamnosus 10,000 MMU CELLS/CAPSULE OGT SCH ×2 (07:20→20:00)
[2021-01-22] MEDS: nystatin 15 GM powder TP SCH ×3 (07:21→21:16)
[2021-01-22] MEDS: levoTHYROXINE 75mcg tablet OGT SCH (07:21)
[2021-01-22] MEDS: lansoprazole 15mg solutab OGT SCH (07:21)
[2021-01-22] MEDS: metolazone 2.5mg tablet PO SCH ×2 (07:21→16:59)
[2021-01-22] MEDS: furosemide 40mg/4ml inj IV SCH ×2 (07:21→12:48)
[2021-01-22] MEDS: vancomycin/NS 1 GM ADD-VANTAGE 250 ML IV SCH ×2 (07:22→16:59)
[2021-01-22] MEDS: NORMAL SALINE IV SCH (07:22)
[2021-01-22] MEDS: DEXAMETHASONE IV SCH (07:22)
[2021-01-22] MEDS: CEFEPIME 2gm in D5W 50mL 50 ML IV SCH ×2 (07:22→16:53)
[2021-01-22] MEDS: enoxaparin 100mg/ml syringe SUBCUT SCH ×2 (07:23→20:00)
[2021-01-22] MEDS: budesonide 0.5mg/2ml UD nebule IH SCH (07:40)
[2021-01-22] MEDS: sodium chloride 3% for inhalation 4ml nebule IH SCH ×2 (07:40→19:41)
[2021-01-22] MEDS: albuterol 2.5 MG/3 ML nebule NEB PRN ×2 (07:40→19:42)
[2021-01-22] MEDS: docusate sodium 100mg/10ml UD cup OGT SCH ×2 (07:48→20:00)
[2021-01-22] MEDS: midazolam 100mg in NS 100ml 100 ML IV PRN ×2 (08:00→16:52)
--- NOTE | 2021-01-22 12:17 | NUR ---
Reassessment: Pt remains intubated and tolerating TF at goal rate with GRV WNL. Pt now receiving Vital High Protein as product is back in stock. LBM 01/18 however Colace held 01/21 and 01/22 for diarrhea per EMR. Pt continues receiving routine Lactulose and Reglan. No changes to nutrition recommendations at this time. Will continue to follow. Recommendations: 1) Continuous Vital High Protein via OGT at 60 mL/hr. To provide 1440 mL total volume/day, 1440 kcal, 126 g protein, and 1204 mL water 2) Additional 150 mL water flush Q4H per MD; monitor serum Na 3) Prealbumin q Monday/ 4) Routine bowel care; routine prokinetic agent per MD 5) Daily scaled weight Addendum: 01/22/21 at [address] Amended: Links added.
[2021-01-22] MEDS: FENTANYL-0.9 % NACL/PF 100 ML IV PRN (12:39)
[2021-01-22] MEDS: metoclopramide 5 mg/ml inj IV SCH ×3 (12:40→21:16)
[2021-01-22] MEDS: insulin glargine (Lantus) pen - multi-dose SQ SCH (21:25)
[2021-01-23] VITALS (23 sets, daily range): BP systolic 92–125; BP diastolic 48–73
[2021-01-23] MEDS: FENTANYL-0.9 % NACL/PF 100 ML IV PRN ×3 (00:06→23:48)
[2021-01-23] MEDS: furosemide 40mg/4ml inj IV SCH ×4 (00:07→23:49)
[2021-01-23] MEDS: potassium Cl 40MEQ/250ML bag 270 ML IV PRN ×3 (00:07→12:03)
[2021-01-23] MEDS: vancomycin/NS 1 GM ADD-VANTAGE 250 ML IV SCH ×4 (00:07→23:59)
[2021-01-23] MEDS: metolazone 2.5mg tablet PO SCH ×4 (00:07→23:49)
[2021-01-23] MEDS: CEFEPIME 2gm in D5W 50mL 50 ML IV SCH ×2 (00:08→08:13)
[2021-01-23] MEDS: midazolam 100mg in NS 100ml 100 ML IV PRN ×3 (01:12→19:19)
[2021-01-23] MEDS: insulin regular, human U-100 3ml vial - multi-dose SQ SCH ×4 (02:31→20:31)
[2021-01-23 03:02] LABS: ABG BASE EXCESS 7.4 mmol/L (-2.0-2.0); ABG HCO3 32.2 mmol/L (22.0-26.0); ABG OXYGEN SATURATION 96.2 % (94-97); ABG PCO2 (T) 45.6 mmHg (32.0-45.0); ABG PO2 (T) 81.7 mmHg (75.0-100.0); ALLEN'S TEST POSITIVE; FCOHb 0.8 % (0.0-3.9); FMetHb 0.2 % (0.0-1.5); FO2Hb 95.2 % (94-97); PATIENT TEMPERATURE 36.5; PEEP 8 cm H2O; RESPIRATORY RATE 22 b/min; TIDAL VOLUME 425 mL; TOTAL HEMOGLOBIN 11.2 G/dl (12.0-16.0)
[2021-01-23 07:23] LABS: BASOPHILS % (AUTO) 0.6 % (0-1); EOSINOPHILS # (AUTO) 0.7 X10'3 (0-0.9); EOSINOPHILS % (AUTO) 9.4 % (0-6); HEMATOCRIT 31.1 % (35.0-45.0); HEMOGLOBIN 9.9 g/dl (12.0-16.0); LYMPHOCYTES # (AUTO) 1.6 X10'3 (1.1-4.8); LYMPHOCYTES % (AUTO) 20.3 % (21-51); MEAN CORPUSCULAR HEMOGLOBIN 26.9 PG (27.0-31.0); MEAN CORPUSCULAR HGB CONC 31.8 g/dL (33.0-36.5); MEAN CORPUSCULAR VOLUME 84.6 FL (78-98); MEAN PLATELET VOLUME 8.6 FL (7.4-10.4); MONOCYTES # (AUTO) 0.6 X10'3 (0-0.9); MONOCYTES % (AUTO) 7.9 % (2-12); NEUTROPHILS # (AUTO) 4.8 X10'3 (1.8-7.7); NEUTROPHILS % (AUTO) 61.8 % (42-75); PLATELET COUNT 103 X10'3 (140-440); RED BLOOD COUNT 3.68 X10'6 (4.20-5.60); RED CELL DISTRIBUTION WIDTH 22.6 % (11.5-14.5); WHITE BLOOD COUNT 7.8 X10'3 (4.5-11.0)
[2021-01-23 07:26] LABS: ALBUMIN 2.4 G/DL (3.4-5.0); ANION GAP 6 (8-16); BLOOD UREA NITROGEN 29 MG/DL (7-18); CALCIUM 8.3 MG/DL (8.5-10.1); CHLORIDE 109 MMOL/L (99-107); CREATININE 0.42 MG/DL (0.40-0.90); GLUCOSE 121 MG/DL (70-104); SODIUM 146 MMOL/L (135-145); TOTAL CARBON DIOXIDE 31.2 MMOL/L (24-32); eGFR > 90 ML/MIN
[2021-01-23 07:57] LABS: ANISOCYTOSIS 3+; PLATELET ESTIMATE DECREASED; TOTAL CELLS COUNTED 100
[2021-01-23] MEDS: nystatin 15 GM powder TP SCH ×3 (08:00→20:50)
[2021-01-23] MEDS: docusate sodium 100mg/10ml UD cup OGT SCH (08:00)
[2021-01-23] MEDS: enoxaparin 100mg/ml syringe SUBCUT SCH ×2 (08:09→20:49)
[2021-01-23] MEDS: levoTHYROXINE 75mcg tablet OGT SCH (08:10)
[2021-01-23] MEDS: lactobacillus rhamnosus 10,000 MMU CELLS/CAPSULE OGT SCH ×2 (08:10→20:49)
[2021-01-23] MEDS: lansoprazole 15mg solutab OGT SCH (08:10)
[2021-01-23] MEDS: metoclopramide 5 mg/ml inj IV SCH ×3 (08:11→20:49)
[2021-01-23] MEDS: amLODIPine 5mg tablet OGT SCH (08:11)
[2021-01-23] MEDS: DEXAMETHASONE IV SCH (08:13)
[2021-01-23] MEDS: NORMAL SALINE IV SCH (08:13)
[2021-01-23] MEDS: lactulose 20gm/30ml cup PO SCH ×3 (08:15→20:49)
[2021-01-23] MEDS: budesonide 0.5mg/2ml UD nebule IH SCH (08:19)
[2021-01-23] MEDS: albuterol 2.5 MG/3 ML nebule NEB PRN ×2 (08:19→19:22)
[2021-01-23] MEDS: sodium chloride 3% for inhalation 4ml nebule IH SCH ×2 (08:19→19:22)
[2021-01-23] MEDS: cefepime 2g/NS 100ml ADVANTAGE 100 ML IV SCH ×2 (17:00→23:58)
[2021-01-23] MEDS: insulin glargine (Lantus) pen - multi-dose SQ SCH (20:26)
[2021-01-24] VITALS (24 sets, daily range): BP systolic 87–144; BP diastolic 42–80
[2021-01-24] MEDS: NORepinephrine 8mg/ 250ml NS 250 ML IV SCH ×3 (01:00→14:01)
[2021-01-24] MEDS: lactulose 20gm/30ml cup PO SCH ×4 (02:00→20:00)
[2021-01-24] MEDS: insulin regular, human U-100 3ml vial - multi-dose SQ SCH ×4 (02:28→20:16)
[2021-01-24 02:32] LABS: ABG BASE EXCESS 4.9 mmol/L (-2.0-2.0); ABG HCO3 28.6 mmol/L (22.0-26.0); ABG OXYGEN SATURATION 92.1 % (94-97); ABG PCO2 (T) 39.4 mmHg (32.0-45.0); ABG PO2 (T) 64.8 mmHg (75.0-100.0); ALLEN'S TEST POSITIVE; FCOHb 1.1 % (0.0-3.9); FMetHb 0.3 % (0.0-1.5); FO2Hb 90.8 % (94-97); PATIENT TEMPERATURE 37.4; PEEP 8 cm H2O; RESPIRATORY RATE 22 b/min; TIDAL VOLUME 425 mL; TOTAL HEMOGLOBIN 11.7 G/dl (12.0-16.0)
[2021-01-24 03:11] LABS: BASOPHILS # (AUTO) 0.1 X10'3 (0-0.2); BASOPHILS % (AUTO) 1.2 % (0-1); EOSINOPHILS # (AUTO) 0.8 X10'3 (0-0.9); EOSINOPHILS % (AUTO) 9.2 % (0-6); HEMATOCRIT 41.4 % (35.0-45.0); HEMOGLOBIN 13.2 g/dl (12.0-16.0); LYMPHOCYTES # (AUTO) 1.7 X10'3 (1.1-4.8); LYMPHOCYTES % (AUTO) 21.1 % (21-51); MEAN CORPUSCULAR HEMOGLOBIN 26.8 PG (27.0-31.0); MEAN CORPUSCULAR HGB CONC 31.9 g/dL (33.0-36.5); MEAN CORPUSCULAR VOLUME 84.1 FL (78-98); MEAN PLATELET VOLUME 9.4 FL (7.4-10.4); MONOCYTES # (AUTO) 0.5 X10'3 (0-0.9); MONOCYTES % (AUTO) 5.5 % (2-12); NEUTROPHILS # (AUTO) 5.1 X10'3 (1.8-7.7); PLATELET COUNT 112 X10'3 (140-440); RED BLOOD COUNT 4.93 X10'6 (4.20-5.60); RED CELL DISTRIBUTION WIDTH 22.1 % (11.5-14.5); WHITE BLOOD COUNT 8.2 X10'3 (4.5-11.0)
[2021-01-24 04:06] LABS: ALANINE AMINOTRANSFERASE 56 U/L (12-78); ALBUMIN 2.7 G/DL (3.4-5.0); ALBUMIN/GLOBULIN RATIO 0.7 (1.1-1.5); ALKALINE PHOSPHATASE 110 IU/L (46-116); ANION GAP 8 (8-16); ASPARTATE AMINO TRANSFERASE 35 U/L (10-37); BILIRUBIN,TOTAL 0.9 MG/DL (0.1-1.0); BLOOD UREA NITROGEN 25 MG/DL (7-18); BUN/CREATININE RATIO 55.6 (6.6-38.0); CALCIUM 8.2 MG/DL (8.5-10.1); CHLORIDE 103 MMOL/L (99-107); CREATININE 0.45 MG/DL (0.40-0.90); GLUCOSE 93 MG/DL (70-104); POTASSIUM 3.8 MMOL/L (3.5-5.1); SODIUM 142 MMOL/L (135-145); TOTAL CARBON DIOXIDE 30.8 MMOL/L (24-32); TOTAL PROTEIN 6.4 G/DL (6.4-8.2); eGFR > 90 ML/MIN
[2021-01-24 04:20] LABS: ANISOCYTOSIS 3+; PLATELET ESTIMATE DECREASED
[2021-01-24 04:21] LABS: ELLIPTOCYTES 1+; POLYCHROMASIA 1+
[2021-01-24] MEDS: POTASSIUM BICARB 20meq eff tab 20 MEQ TABLET.EFF PO PRN (06:04)
[2021-01-24] MEDS: cefepime 2g/NS 100ml ADVANTAGE 100 ML IV SCH ×2 (07:34→16:21)
[2021-01-24] MEDS: nystatin 15 GM powder TP SCH ×3 (08:00→20:01)
[2021-01-24] MEDS: metolazone 2.5mg tablet PO SCH ×2 (08:00→16:00)
[2021-01-24] MEDS: amLODIPine 5mg tablet OGT SCH (08:00)
[2021-01-24] MEDS: docusate sodium 100mg/10ml UD cup OGT SCH ×2 (08:00→20:00)
[2021-01-24] MEDS: enoxaparin 100mg/ml syringe SUBCUT SCH ×2 (08:56→20:00)
[2021-01-24] MEDS: vancomycin/NS 1 GM ADD-VANTAGE 250 ML IV SCH ×2 (08:56→16:00)
[2021-01-24] MEDS: levoTHYROXINE 75mcg tablet OGT SCH (08:57)
[2021-01-24] MEDS: metoclopramide 5 mg/ml inj IV SCH ×3 (08:57→20:00)
[2021-01-24] MEDS: furosemide 40mg/4ml inj IV SCH ×2 (08:57→16:21)
[2021-01-24] MEDS: lactobacillus rhamnosus 10,000 MMU CELLS/CAPSULE OGT SCH ×2 (08:57→20:01)
[2021-01-24] MEDS: lansoprazole 15mg solutab OGT SCH (08:57)
[2021-01-24] MEDS: DEXAMETHASONE IV SCH (09:04)
[2021-01-24] MEDS: NORMAL SALINE IV SCH (09:04)
[2021-01-24] MEDS: albuterol 2.5 MG/3 ML nebule NEB PRN ×2 (10:14→19:44)
[2021-01-24] MEDS: sodium chloride 3% for inhalation 4ml nebule IH SCH ×2 (10:14→19:44)
[2021-01-24] MEDS: budesonide 0.5mg/2ml UD nebule IH SCH (10:14)
[2021-01-24] MEDS: FENTANYL-0.9 % NACL/PF 100 ML IV PRN ×2 (14:01→21:21)
[2021-01-24] MEDS: midazolam 100mg in NS 100ml 100 ML IV PRN (19:59)
[2021-01-24] MEDS: insulin glargine (Lantus) pen - multi-dose SQ SCH (20:13)
[2021-01-25] VITALS (24 sets, daily range): BP systolic 83–129; BP diastolic 47–72
[2021-01-25] MEDS: insulin regular, human U-100 3ml vial - multi-dose SQ SCH ×4 (01:36→21:42)
[2021-01-25] MEDS: lactulose 20gm/30ml cup PO SCH ×2 (01:42→08:00)
[2021-01-25 02:17] LABS: BASOPHILS # (AUTO) 0.1 X10'3 (0-0.2); BASOPHILS % (AUTO) 1.1 % (0-1); EOSINOPHILS # (AUTO) 0.9 X10'3 (0-0.9); EOSINOPHILS % (AUTO) 8.6 % (0-6); HEMATOCRIT 31.9 % (35.0-45.0); HEMOGLOBIN 10.2 g/dl (12.0-16.0); LYMPHOCYTES # (AUTO) 2.3 X10'3 (1.1-4.8); LYMPHOCYTES % (AUTO) 21.6 % (21-51); MEAN CORPUSCULAR HEMOGLOBIN 26.9 PG (27.0-31.0); MEAN CORPUSCULAR HGB CONC 32.1 g/dL (33.0-36.5); MEAN CORPUSCULAR VOLUME 83.9 FL (78-98); MEAN PLATELET VOLUME 8.6 FL (7.4-10.4); MONOCYTES # (AUTO) 0.9 X10'3 (0-0.9); NEUTROPHILS # (AUTO) 6.5 X10'3 (1.8-7.7); NEUTROPHILS % (AUTO) 60.7 % (42-75); PLATELET COUNT 169 X10'3 (140-440); RED CELL DISTRIBUTION WIDTH 21.6 % (11.5-14.5); WHITE BLOOD COUNT 10.7 X10'3 (4.5-11.0)
[2021-01-25 02:33] LABS: ABG BASE EXCESS 9.1 mmol/L (-2.0-2.0); ABG HCO3 34.6 mmol/L (22.0-26.0); ABG OXYGEN SATURATION 94.5 % (94-97); ABG PCO2 (T) 51.4 mmHg (32.0-45.0); ABG PO2 (T) 76.1 mmHg (75.0-100.0); ALLEN'S TEST POSITIVE; FCOHb 1.1 % (0.0-3.9); FMetHb 0.2 % (0.0-1.5); FO2Hb 93.3 % (94-97); PEEP 5 cm H2O; RESPIRATORY RATE 22 b/min; TIDAL VOLUME 425 mL
[2021-01-25 03:55] LABS: ALANINE AMINOTRANSFERASE 24 U/L (12-78); ALBUMIN 2.4 G/DL (3.4-5.0); ALBUMIN/GLOBULIN RATIO 0.7 (1.1-1.5); ALKALINE PHOSPHATASE 81 IU/L (46-116); ANION GAP 7 (8-16); ASPARTATE AMINO TRANSFERASE 27 U/L (10-37); BILIRUBIN,TOTAL 0.6 MG/DL (0.1-1.0); BLOOD UREA NITROGEN 30 MG/DL (7-18); BUN/CREATININE RATIO 69.8 (6.6-38.0); CALCIUM 7.6 MG/DL (8.5-10.1); CHLORIDE 104 MMOL/L (99-107); CREATININE 0.43 MG/DL (0.40-0.90); GLUCOSE 101 MG/DL (70-104); PREALBUMIN 17.5 MG/DL (19-36); SODIUM 142 MMOL/L (135-145); TOTAL PROTEIN 5.8 G/DL (6.4-8.2); eGFR > 90 ML/MIN
[2021-01-25 03:59] LABS: POTASSIUM 2.3 MMOL/L (3.5-5.1)
[2021-01-25] MEDS: NORepinephrine 8mg/ 250ml NS 250 ML IV SCH ×3 (05:16→20:00)
[2021-01-25] MEDS: FENTANYL-0.9 % NACL/PF 100 ML IV PRN ×4 (05:17→22:54)
[2021-01-25 05:39] LABS: PLATELET ESTIMATE NORMAL; TOTAL CELLS COUNTED 100
[2021-01-25 05:40] LABS: ANISOCYTOSIS 3+; ELLIPTOCYTES 1+; POLYCHROMASIA 1+
[2021-01-25 05:41] LABS: SMUDGE CELLS 2+; TOXIC GRANULATION 1+
[2021-01-25] MEDS ORDERED: VANCOMYCIN LEVEL IV ONE (07:30)
[2021-01-25] MEDS: albuterol 2.5 MG/3 ML nebule NEB PRN ×2 (07:49→19:26)
[2021-01-25] MEDS: budesonide 0.5mg/2ml UD nebule IH SCH (07:49)
[2021-01-25] MEDS: sodium chloride 3% for inhalation 4ml nebule IH SCH ×2 (07:49→19:26)
[2021-01-25] MEDS: midazolam 100mg in NS 100ml 100 ML IV PRN ×3 (07:55→20:05)
[2021-01-25] MEDS: furosemide 40mg/4ml inj IV SCH ×2 (08:00)
[2021-01-25] MEDS: amLODIPine 5mg tablet OGT SCH (08:00)
[2021-01-25] MEDS: metolazone 2.5mg tablet PO SCH ×2 (08:00)
[2021-01-25] MEDS: lactobacillus rhamnosus 10,000 MMU CELLS/CAPSULE OGT SCH ×2 (08:08→20:00)
[2021-01-25] MEDS: lansoprazole 15mg solutab OGT SCH (08:08)
[2021-01-25] MEDS: levoTHYROXINE 75mcg tablet OGT SCH (08:10)
[2021-01-25] MEDS: DEXAMETHASONE IV SCH (08:10)
[2021-01-25] MEDS: metoclopramide 5 mg/ml inj IV SCH (08:10)
[2021-01-25] MEDS: NORMAL SALINE IV SCH (08:10)
[2021-01-25] MEDS: cefepime 2g/NS 100ml ADVANTAGE 100 ML IV SCH ×2 (08:13)
[2021-01-25] MEDS: vancomycin/NS 1 GM ADD-VANTAGE 250 ML IV SCH ×2 (08:14)
[2021-01-25] MEDS: docusate sodium 100mg/10ml UD cup OGT SCH ×2 (08:14→20:00)
[2021-01-25] MEDS: nystatin 15 GM powder TP SCH ×3 (08:15→20:07)
[2021-01-25] MEDS: enoxaparin 100mg/ml syringe SUBCUT SCH ×2 (08:16→20:01)
[2021-01-25 11:52] LABS: MAGNESIUM 2.1 MG/DL (1.5-2.4); POTASSIUM 3.3 MMOL/L (3.5-5.1)
[2021-01-25] MEDS ORDERED: magnesium 2GM in 50ml NS 50 ML IV PRN (12:40)
[2021-01-25] MEDS ORDERED: magnesium 4gm in 100ml NS 100 ML IV PRN (12:40)
[2021-01-25] MEDS: potassium Cl 40MEQ/250ML bag 270 ML IV PRN (14:07)
--- NOTE | 2021-01-25 18:24 | NUR ---
Problems reprioritized. Patient report given, questions answered & plan of care reviewed with
[2021-01-25] MEDS: insulin glargine (Lantus) pen - multi-dose SQ SCH (21:40)
[2021-01-26] VITALS (23 sets, daily range): BP systolic 89–151; BP diastolic 44–90
[2021-01-26] MEDS: insulin regular, human U-100 3ml vial - multi-dose SQ SCH ×3 (02:17→15:24)
[2021-01-26] MEDS: FENTANYL-0.9 % NACL/PF 100 ML IV PRN ×5 (02:32→23:41)
[2021-01-26 03:28] LABS: ABG BASE EXCESS 5.2 mmol/L (-2.0-2.0); ABG HCO3 30.3 mmol/L (22.0-26.0); ABG OXYGEN SATURATION 89.1 % (94-97); ABG PCO2 (T) 48.1 mmHg (32.0-45.0); ABG PO2 (T) 57.9 mmHg (75.0-100.0); ALLEN'S TEST POSITIVE; FCOHb 0.8 % (0.0-3.9); FMetHb 0.3 % (0.0-1.5); FO2Hb 88.1 % (94-97); PATIENT TEMPERATURE 37.6; PEEP 5 cm H2O; RESPIRATORY RATE 22 b/min; TIDAL VOLUME 425 mL; TOTAL HEMOGLOBIN 11.4 G/dl (12.0-16.0)
[2021-01-26 03:55] LABS: BASOPHILS # (AUTO) 0.1 X10'3 (0-0.2); EOSINOPHILS # (AUTO) 0.6 X10'3 (0-0.9); EOSINOPHILS % (AUTO) 6.1 % (0-6); HEMATOCRIT 30.2 % (35.0-45.0); HEMOGLOBIN 9.8 g/dl (12.0-16.0); LYMPHOCYTES # (AUTO) 2.7 X10'3 (1.1-4.8); LYMPHOCYTES % (AUTO) 29.8 % (21-51); MEAN CORPUSCULAR HEMOGLOBIN 27.5 PG (27.0-31.0); MEAN CORPUSCULAR HGB CONC 32.4 g/dL (33.0-36.5); MEAN CORPUSCULAR VOLUME 84.9 FL (78-98); MEAN PLATELET VOLUME 8.3 FL (7.4-10.4); MONOCYTES # (AUTO) 0.7 X10'3 (0-0.9); MONOCYTES % (AUTO) 7.6 % (2-12); NEUTROPHILS # (AUTO) 5.1 X10'3 (1.8-7.7); NEUTROPHILS % (AUTO) 55.5 % (42-75); PLATELET COUNT 189 X10'3 (140-440); RED BLOOD COUNT 3.56 X10'6 (4.20-5.60); WHITE BLOOD COUNT 9.2 X10'3 (4.5-11.0)
[2021-01-26 04:04] LABS: D-DIMER 0.66 MG/L FEU (0-0.50)
[2021-01-26 04:15] LABS: ALANINE AMINOTRANSFERASE 42 U/L (12-78); ALBUMIN 2.5 G/DL (3.4-5.0); ALBUMIN/GLOBULIN RATIO 0.7 (1.1-1.5); ALKALINE PHOSPHATASE 95 IU/L (46-116); ANION GAP 6 (8-16); ASPARTATE AMINO TRANSFERASE 32 U/L (10-37); BILIRUBIN,TOTAL 0.6 MG/DL (0.1-1.0); BLOOD UREA NITROGEN 27 MG/DL (7-18); BUN/CREATININE RATIO 58.7 (6.6-38.0); CALCIUM 8.2 MG/DL (8.5-10.1); CHLORIDE 107 MMOL/L (99-107); CREATININE 0.46 MG/DL (0.40-0.90); GLUCOSE 131 MG/DL (70-104); POTASSIUM 3.2 MMOL/L (3.5-5.1); SODIUM 144 MMOL/L (135-145); TOTAL CARBON DIOXIDE 30.8 MMOL/L (24-32); TOTAL PROTEIN 6.1 G/DL (6.4-8.2); TRIGLYCERIDES 84 MG/DL (20-135); eGFR > 90 ML/MIN
[2021-01-26 04:16] LABS: ANISOCYTOSIS 3+; PLATELET ESTIMATE NORMAL; POLYCHROMASIA 1+
[2021-01-26 04:17] LABS: C-REACTIVE PROTEIN 0.23 MG/DL (0.0-0.5)
[2021-01-26] MEDS: potassium Cl 40MEQ/250ML bag 270 ML IV PRN (06:20)
--- NOTE | 2021-01-26 06:33 | NUR ---
REPORT GIVEN TO STANLEY/RN
[2021-01-26] MEDS: amLODIPine 5mg tablet OGT SCH (07:11)
[2021-01-26] MEDS: docusate sodium 100mg/10ml UD cup OGT SCH ×2 (08:00→19:55)
[2021-01-26] MEDS ORDERED: DEXAMETHASONE IV SCH (08:00)
[2021-01-26] MEDS ORDERED: NORMAL SALINE IV SCH (08:00)
[2021-01-26] MEDS: nystatin 15 GM powder TP SCH ×3 (08:00→21:00)
[2021-01-26] MEDS: enoxaparin 100mg/ml syringe SUBCUT SCH ×2 (08:49→19:53)
[2021-01-26] MEDS: levoTHYROXINE 75mcg tablet OGT SCH (08:49)
[2021-01-26] MEDS: lactobacillus rhamnosus 10,000 MMU CELLS/CAPSULE OGT SCH ×2 (08:49→19:53)
[2021-01-26] MEDS: lansoprazole 15mg solutab OGT SCH (08:49)
[2021-01-26] MEDS: dexamethasone 4mg/ml inj IV SCH (08:50)
[2021-01-26] MEDS: budesonide 0.5mg/2ml UD nebule IH SCH (08:55)
[2021-01-26] MEDS: albuterol 2.5 MG/3 ML nebule NEB PRN ×2 (08:55→19:52)
[2021-01-26] MEDS: sodium chloride 3% for inhalation 4ml nebule IH SCH ×2 (08:55→19:51)
[2021-01-26] MEDS: midazolam 100mg in NS 100ml 100 ML IV PRN ×4 (09:18→23:42)
--- NOTE | 2021-01-26 11:12 | NUR ---
Reassessment: Pt remains intubated and tolerating TF at goal rate with GRV WNL. LBM 01/25. Pt continues with routine Colace however routine Lactulose and Reglan have been discontinued. No changes to nutrition recommendations at this time. Will continue to follow. Recommendations: 1) Continuous Vital High Protein via OGT at 60 mL/hr. To provide 1440 mL total volume/day, 1440 kcal, 126 g protein, and 1204 mL water 2) Additional 150 mL water flush Q4H per MD; monitor serum Na 3) Prealbumin q Monday/ 4) Routine bowel care; monitor need for additional given previous constipation 5) Daily scaled weight Addendum: 01/26/21 at [address] Amended: Links added.
[2021-01-26] MEDS: insulin glargine (Lantus) pen - multi-dose SQ SCH (21:00)
[2021-01-27] VITALS (21 sets, daily range): BP systolic 93–121; BP diastolic 44–68
[2021-01-27] MEDS: NORepinephrine 8mg/ 250ml NS 250 ML IV SCH ×4 (01:48→19:57)
[2021-01-27] MEDS: insulin regular, human U-100 3ml vial - multi-dose SQ SCH ×2 (02:25→21:55)
[2021-01-27 02:50] LABS: ABG BASE EXCESS 4.3 mmol/L (-2.0-2.0); ABG HCO3 29.1 mmol/L (22.0-26.0); ABG OXYGEN SATURATION 92.9 % (94-97); ABG PCO2 (T) 45.1 mmHg (32.0-45.0); ABG PO2 (T) 65.6 mmHg (75.0-100.0); ALLEN'S TEST POSITIVE; FCOHb 1.4 % (0.0-3.9); FMetHb 0.1 % (0.0-1.5); FO2Hb 91.5 % (94-97); PATIENT TEMPERATURE 37.3; PEEP 5 cm H2O; RESPIRATORY RATE 22 b/min; TIDAL VOLUME 425 mL; TOTAL HEMOGLOBIN 10.5 G/dl (12.0-16.0)
[2021-01-27 03:11] LABS: BASOPHILS # (AUTO) 0.1 X10'3 (0-0.2); EOSINOPHILS # (AUTO) 0.6 X10'3 (0-0.9); EOSINOPHILS % (AUTO) 6.1 % (0-6); HEMATOCRIT 28.6 % (35.0-45.0); HEMOGLOBIN 9.2 g/dl (12.0-16.0); LYMPHOCYTES # (AUTO) 2.8 X10'3 (1.1-4.8); LYMPHOCYTES % (AUTO) 27.9 % (21-51); MEAN CORPUSCULAR HEMOGLOBIN 27.2 PG (27.0-31.0); MEAN CORPUSCULAR VOLUME 84.9 FL (78-98); MEAN PLATELET VOLUME 8.1 FL (7.4-10.4); MONOCYTES # (AUTO) 0.7 X10'3 (0-0.9); NEUTROPHILS # (AUTO) 5.8 X10'3 (1.8-7.7); PLATELET COUNT 229 X10'3 (140-440); RED BLOOD COUNT 3.37 X10'6 (4.20-5.60); RED CELL DISTRIBUTION WIDTH 22.2 % (11.5-14.5)
[2021-01-27 03:32] LABS: ALANINE AMINOTRANSFERASE 39 U/L (12-78); ALBUMIN 2.3 G/DL (3.4-5.0); ALBUMIN/GLOBULIN RATIO 0.7 (1.1-1.5); ALKALINE PHOSPHATASE 83 IU/L (46-116); ANION GAP 6 (8-16); ASPARTATE AMINO TRANSFERASE 34 U/L (10-37); BILIRUBIN,TOTAL 0.6 MG/DL (0.1-1.0); BLOOD UREA NITROGEN 17 MG/DL (7-18); BUN/CREATININE RATIO 53.1 (6.6-38.0); CALCIUM 7.9 MG/DL (8.5-10.1); CHLORIDE 105 MMOL/L (99-107); CREATININE 0.32 MG/DL (0.40-0.90); GLUCOSE 124 MG/DL (70-104); MAGNESIUM 1.7 MG/DL (1.5-2.4); POTASSIUM 3.1 MMOL/L (3.5-5.1); SODIUM 142 MMOL/L (135-145); TOTAL CARBON DIOXIDE 30.6 MMOL/L (24-32); TOTAL PROTEIN 5.8 G/DL (6.4-8.2); TRIGLYCERIDES 71 MG/DL (20-135); eGFR > 90 ML/MIN
[2021-01-27] MEDS: potassium Cl 40MEQ/250ML bag 270 ML IV PRN (04:31)
[2021-01-27 04:56] LABS: D-DIMER 0.83 MG/L FEU (0-0.50)
[2021-01-27] MEDS: FENTANYL-0.9 % NACL/PF 100 ML IV PRN ×4 (06:12→22:46)
[2021-01-27] MEDS: midazolam 100mg in NS 100ml 100 ML IV PRN ×4 (06:12→22:47)
--- NOTE | 2021-01-27 06:15 | NUR ---
REPORT GIVEN T Addendum: 01/27/21 at 0639 by Constance Rueda RN TO Mar
[2021-01-27] MEDS: docusate sodium 100mg/10ml UD cup OGT SCH ×2 (08:00→20:01)
[2021-01-27] MEDS: albuterol 2.5 MG/3 ML nebule NEB PRN ×2 (08:19→19:25)
[2021-01-27] MEDS: sodium chloride 3% for inhalation 4ml nebule IH SCH ×2 (08:19→19:25)
[2021-01-27] MEDS: budesonide 0.5mg/2ml UD nebule IH SCH (08:19)
[2021-01-27] MEDS: lactobacillus rhamnosus 10,000 MMU CELLS/CAPSULE OGT SCH ×2 (09:40→19:58)
[2021-01-27] MEDS: amLODIPine 5mg tablet OGT SCH (09:40)
[2021-01-27] MEDS: lansoprazole 15mg solutab OGT SCH (09:40)
[2021-01-27] MEDS: dexamethasone 4mg/ml inj IV SCH (09:45)
[2021-01-27] MEDS: nystatin 15 GM powder TP SCH ×3 (09:46→19:58)
[2021-01-27] MEDS: enoxaparin 100mg/ml syringe SUBCUT SCH ×2 (09:46→19:58)
[2021-01-27] MEDS: levoTHYROXINE 75mcg tablet OGT SCH (09:46)
[2021-01-27] MEDS: insulin glargine (Lantus) pen - multi-dose SQ SCH (21:37)
[2021-01-28] VITALS (29 sets, daily range): BP systolic 85–164; BP diastolic 34–90
[2021-01-28] MEDS: NORepinephrine 8mg/ 250ml NS 250 ML IV SCH ×2 (00:50→19:24)
[2021-01-28] MEDS: midazolam 100mg in NS 100ml 100 ML IV PRN ×4 (02:09→23:19)
[2021-01-28] MEDS: FENTANYL-0.9 % NACL/PF 100 ML IV PRN ×5 (02:09→23:00)
[2021-01-28] MEDS: insulin regular, human U-100 3ml vial - multi-dose SQ SCH ×2 (02:30→22:11)
[2021-01-28 02:52] LABS: ABG BASE EXCESS 4.9 mmol/L (-2.0-2.0); ABG OXYGEN SATURATION 91.1 % (94-97); ABG PCO2 (T) 47.3 mmHg (32.0-45.0); ABG PO2 (T) 60.6 mmHg (75.0-100.0); ALLEN'S TEST POSITIVE; FCOHb 1.2 % (0.0-3.9); FMetHb 0.3 % (0.0-1.5); FO2Hb 89.7 % (94-97); PATIENT TEMPERATURE 36.9; PEEP 5 cm H2O; RESPIRATORY RATE 22 b/min; TIDAL VOLUME 425 mL; TOTAL HEMOGLOBIN 10.3 G/dl (12.0-16.0)
[2021-01-28 04:12] LABS: BASOPHILS % (AUTO) 0.6 % (0-1); EOSINOPHILS # (AUTO) 0.3 X10'3 (0-0.9); EOSINOPHILS % (AUTO) 4.7 % (0-6); HEMATOCRIT 27.6 % (35.0-45.0); HEMOGLOBIN 8.7 g/dl (12.0-16.0); LYMPHOCYTES # (AUTO) 1.5 X10'3 (1.1-4.8); LYMPHOCYTES % (AUTO) 20.5 % (21-51); MEAN CORPUSCULAR HEMOGLOBIN 27.3 PG (27.0-31.0); MEAN CORPUSCULAR HGB CONC 31.6 g/dL (33.0-36.5); MEAN CORPUSCULAR VOLUME 86.3 FL (78-98); MONOCYTES # (AUTO) 0.7 X10'3 (0-0.9); NEUTROPHILS # (AUTO) 4.8 X10'3 (1.8-7.7); NEUTROPHILS % (AUTO) 65.2 % (42-75); PLATELET COUNT 203 X10'3 (140-440); WHITE BLOOD COUNT 7.4 X10'3 (4.5-11.0)
[2021-01-28 04:20] LABS: D-DIMER 0.64 MG/L FEU (0-0.50)
[2021-01-28 04:28] LABS: ALANINE AMINOTRANSFERASE 38 U/L (12-78); ALBUMIN 2.3 G/DL (3.4-5.0); ALBUMIN/GLOBULIN RATIO 0.7 (1.1-1.5); ALKALINE PHOSPHATASE 87 IU/L (46-116); ANION GAP 4 (8-16); ASPARTATE AMINO TRANSFERASE 33 U/L (10-37); BILIRUBIN,TOTAL 0.7 MG/DL (0.1-1.0); BLOOD UREA NITROGEN 18 MG/DL (7-18); BUN/CREATININE RATIO 51.4 (6.6-38.0); CALCIUM 7.8 MG/DL (8.5-10.1); CHLORIDE 105 MMOL/L (99-107); CREATININE 0.35 MG/DL (0.40-0.90); GLUCOSE 144 MG/DL (70-104); MAGNESIUM 1.7 MG/DL (1.5-2.4); POTASSIUM 3.1 MMOL/L (3.5-5.1); PREALBUMIN 14.5 MG/DL (19-36); SODIUM 139 MMOL/L (135-145); TOTAL CARBON DIOXIDE 30.2 MMOL/L (24-32); TOTAL PROTEIN 5.7 G/DL (6.4-8.2); eGFR > 90 ML/MIN
[2021-01-28 04:31] LABS: ANISOCYTOSIS 3+; ELLIPTOCYTES 1+; PLATELET ESTIMATE NORMAL; POLYCHROMASIA FEW
--- NOTE | 2021-01-28 06:06 | NUR ---
Report given Salomón/LILIAN
[2021-01-28] MEDS ORDERED: POTASSIUM BICARB 20meq eff tab 20 MEQ TABLET.EFF PO PRN ×2 (06:12→06:15)
[2021-01-28] MEDS: potassium Cl 40MEQ/250ML bag 270 ML IV PRN (07:20)
[2021-01-28] MEDS: dexamethasone 4mg/ml inj IV SCH (07:21)
[2021-01-28] MEDS: nystatin 15 GM powder TP SCH ×3 (07:21→21:00)
[2021-01-28] MEDS: lactobacillus rhamnosus 10,000 MMU CELLS/CAPSULE OGT SCH ×2 (07:21→19:20)
[2021-01-28] MEDS: amLODIPine 5mg tablet OGT SCH (07:22)
[2021-01-28] MEDS: levoTHYROXINE 75mcg tablet OGT SCH (07:22)
[2021-01-28] MEDS: lansoprazole 15mg solutab OGT SCH (07:22)
[2021-01-28] MEDS: budesonide 0.5mg/2ml UD nebule IH SCH (07:28)
[2021-01-28] MEDS: docusate sodium 100mg/10ml UD cup OGT SCH ×2 (08:00→19:19)
[2021-01-28] MEDS: enoxaparin 100mg/ml syringe SUBCUT SCH ×2 (08:00→19:21)
[2021-01-28] MEDS: sodium chloride 3% for inhalation 4ml nebule IH SCH ×2 (09:45→19:33)
--- NOTE | 2021-01-28 13:55 | NUR ---
Pt to OR via [facility], reported off to anesthesiologist Luis A Blank, monitors attached, pt stable
[2021-01-28] MEDS ORDERED: BUPIVAcaine/PF 2.5 mg/ml (0.25%) 30ml vial ONE (14:05)
[2021-01-28] MEDS ORDERED: rocuronium 10mg/ml inj IV ONE ×2 (14:33→15:32)
[2021-01-28] MEDS ORDERED: fentaNYL/PF 50MCG/1 ML 2ML syringe ONE ×2 (14:36→15:10)
[2021-01-28] MEDS ORDERED: midazolam 1 mg/ML 2ml injection ONE (14:37)
--- NOTE | 2021-01-28 16:30 | NUR ---
Pt returned to room , placed on monitors surgical sites wnl, no bleeding noted. outer canula out [address] Smith manuvered outer canula back to proper position and reattached flange pins to outer canula for proper security. Chest xray done for confirmation, Dr Guillory here for explanation of procedure.
[2021-01-28] MEDS: albuterol 2.5 MG/3 ML nebule NEB PRN (19:33)
[2021-01-28] MEDS: insulin glargine (Lantus) pen - multi-dose SQ SCH (21:00)
[2021-01-29] VITALS (22 sets, daily range): BP systolic 85–133; BP diastolic 37–70
[2021-01-29] MEDS: FENTANYL-0.9 % NACL/PF 100 ML IV PRN ×6 (00:07→18:26)
[2021-01-29 02:55] LABS: BASOPHILS % (AUTO) 0.5 % (0-1); EOSINOPHILS # (AUTO) 0.1 X10'3 (0-0.9); EOSINOPHILS % (AUTO) 1.7 % (0-6); HEMATOCRIT 25.5 % (35.0-45.0); HEMOGLOBIN 8.1 g/dl (12.0-16.0); LYMPHOCYTES # (AUTO) 0.7 X10'3 (1.1-4.8); LYMPHOCYTES % (AUTO) 8.1 % (21-51); MEAN CORPUSCULAR HEMOGLOBIN 27.7 PG (27.0-31.0); MEAN CORPUSCULAR HGB CONC 31.7 g/dL (33.0-36.5); MEAN CORPUSCULAR VOLUME 87.3 FL (78-98); MEAN PLATELET VOLUME 7.7 FL (7.4-10.4); MONOCYTES # (AUTO) 0.4 X10'3 (0-0.9); MONOCYTES % (AUTO) 5.1 % (2-12); NEUTROPHILS # (AUTO) 6.8 X10'3 (1.8-7.7); NEUTROPHILS % (AUTO) 84.6 % (42-75); PLATELET COUNT 156 X10'3 (140-440); RED BLOOD COUNT 2.92 X10'6 (4.20-5.60); RED CELL DISTRIBUTION WIDTH 23.2 % (11.5-14.5); WHITE BLOOD COUNT 8.1 X10'3 (4.5-11.0)
[2021-01-29 03:12] LABS: D-DIMER 3.96 MG/L FEU (0-0.50); PARTIAL THROMBOPLASTIN TIME 24 SECONDS (22-32)
[2021-01-29 03:20] LABS: ALANINE AMINOTRANSFERASE 40 U/L (12-78); ALBUMIN 2.3 G/DL (3.4-5.0); ALBUMIN/GLOBULIN RATIO 0.7 (1.1-1.5); ALKALINE PHOSPHATASE 87 IU/L (46-116); ANION GAP 5 (8-16); ASPARTATE AMINO TRANSFERASE 40 U/L (10-37); BILIRUBIN,TOTAL 0.8 MG/DL (0.1-1.0); BLOOD UREA NITROGEN 12 MG/DL (7-18); BUN/CREATININE RATIO 32.4 (6.6-38.0); CALCIUM 7.5 MG/DL (8.5-10.1); CHLORIDE 108 MMOL/L (99-107); CREATININE 0.37 MG/DL (0.40-0.90); GLUCOSE 95 MG/DL (70-104); MAGNESIUM 1.7 MG/DL (1.5-2.4); PHOSPHORUS 2.4 MG/DL (2.3-4.5); POTASSIUM 3.8 MMOL/L (3.5-5.1); SODIUM 142 MMOL/L (135-145); TOTAL CARBON DIOXIDE 28.9 MMOL/L (24-32); TOTAL PROTEIN 5.8 G/DL (6.4-8.2); eGFR > 90 ML/MIN
[2021-01-29 03:54] LABS: PLATELET ESTIMATE NORMAL
[2021-01-29 03:55] LABS: ABG BASE EXCESS 3.4 mmol/L (-2.0-2.0); ABG HCO3 28.3 mmol/L (22.0-26.0); ABG OXYGEN SATURATION 94.1 % (94-97); ABG PCO2 (T) 46.3 mmHg (32.0-45.0); ABG PO2 (T) 74.6 mmHg (75.0-100.0); ALLEN'S TEST POSITIVE; FCOHb 1.5 % (0.0-3.9); FMetHb 0.3 % (0.0-1.5); FO2Hb 92.4 % (94-97); PATIENT TEMPERATURE 37.7; PEEP 5 cm H2O; RESPIRATORY RATE 22 b/min; TIDAL VOLUME 425 mL; TOTAL HEMOGLOBIN 8.9 G/dl (12.0-16.0)
[2021-01-29 03:55] LABS: ANISOCYTOSIS 3+; POLYCHROMASIA 1+
[2021-01-29 03:56] LABS: STOMATOCYTES FEW
[2021-01-29 03:57] LABS: ELLIPTOCYTES FEW
[2021-01-29] MEDS: midazolam 100mg in NS 100ml 100 ML IV PRN ×4 (05:44→21:32)
[2021-01-29] MEDS: nystatin 15 GM powder TP SCH ×3 (07:46→20:53)
[2021-01-29] MEDS: enoxaparin 100mg/ml syringe SUBCUT SCH ×2 (07:46→20:53)
[2021-01-29] MEDS: levoTHYROXINE 75mcg tablet OGT SCH (07:47)
[2021-01-29] MEDS: lactobacillus rhamnosus 10,000 MMU CELLS/CAPSULE OGT SCH ×2 (07:48→19:32)
[2021-01-29] MEDS: lansoprazole 15mg solutab OGT SCH (07:48)
[2021-01-29] MEDS: dexamethasone 4mg/ml inj IV SCH (07:49)
[2021-01-29] MEDS: amLODIPine 5mg tablet OGT SCH (07:50)
[2021-01-29] MEDS: docusate sodium 100mg/10ml UD cup OGT SCH ×2 (07:51→19:32)
[2021-01-29] MEDS ORDERED: rocuronium 10mg/ml inj IV ONE ×5 (08:00→22:58)
[2021-01-29] MEDS ORDERED: etomidate 2mg/ml inj. ONE (08:00)
[2021-01-29] MEDS: budesonide 0.5mg/2ml UD nebule IH SCH (08:05)
[2021-01-29] MEDS: sodium chloride 3% for inhalation 4ml nebule IH SCH ×2 (08:05→19:25)
[2021-01-29] MEDS: albuterol 2.5 MG/3 ML nebule NEB PRN ×2 (08:05→19:25)
[2021-01-29] MEDS: albumin (human) 25% 100 ML IV solution IV SCH ×2 (11:24→16:51)
[2021-01-29] MEDS ORDERED: diatrozoate meglu/diatrozoate sod (37% iodine) 120ML oral solution PO ONE (13:10)
--- NOTE | 2021-01-29 13:50 | NUR ---
While assessing pt for upcoming tube feeds, noted only scant few drops of bile colored fluid in syringe when checking for residual. tried to flush in small amount of water through GT tube, no resistance noted, but ot winced as in pain , i stopped immediately, withdrew about 5 of the 20 cc which had been instilled, called and informed Dr Smith who came in and evaluated with h2O fkush, a ct of the abd and pelvis was ordered, pt to CT on nuclear monitoring technician with transport and RT in attendance. Dr Smith called with initial findings. Pt back to room, back on monitors, stable.
[2021-01-29] MEDS ORDERED: diatr meglu/diatrizoate 30ml oral sol.-(3 dose) bottle PO ONE (13:55)
--- NOTE | 2021-01-29 14:32 | NUR ---
Reassessment: Pt remains intubated, s/p trach and G-tube placement 01/28. Noted TF has not been resumed yet, d/w MD who okays restarting TF. Attempted TC to RN however RN unavailable, message left with another RN who reports pt with some pain following water flush to G-tube so pt to get CT prior to initiating TF per surgeon. LBM 01/29, documented with 150 mL stool output from rectal tube so far per I&O. Will continue to follow. Recommendations: 1) Once cleared by surgeon to use G-tube, resume continuous Vital High Protein via G-tube at 60 mL/hr. To provide 1440 mL total volume/day, 1440 kcal, 126 g protein, and 1204 mL water 2) Additional 150 mL water flush Q4H per MD; monitor serum Na 3) Prealbumin q Monday/ 4) Routine bowel care; monitor need for additional given previous constipation 5) Daily scaled weight Addendum: 01/29/21 at [address] Amended: Links added.
[2021-01-29] MEDS ORDERED: albumin (human) 25% 100 ML IV solution IV SCH (16:00)
[2021-01-29] MEDS: NORepinephrine 8mg/ 250ml NS 250 ML IV SCH (18:25)
[2021-01-29] MEDS: insulin regular, human U-100 3ml vial - multi-dose SQ SCH (19:31)
[2021-01-29] MEDS: insulin glargine (Lantus) pen - multi-dose SQ SCH (21:00)
[2021-01-29] MEDS ORDERED: BUPIVAcaine/PF 2.5 mg/ml (0.25%) 30ml vial ONE (21:03)
[2021-01-29] MEDS ORDERED: sevoflurane 250ml liquid IH ONE (21:23)
[2021-01-29] MEDS ORDERED: albumin (Human) 5% 250ml 250 ML IV ONE (21:53)
[2021-01-29] MEDS ORDERED: NORepinephrine 1 mg/ml inj IV ONE (22:44)
[2021-01-30] VITALS (25 sets, daily range): BP systolic 104–133; BP diastolic 42–71
[2021-01-30] MEDS: albumin (human) 25% 100 ML IV solution IV SCH ×3 (00:55→17:30)
[2021-01-30] MEDS: NORepinephrine 8mg/ 250ml NS 250 ML IV SCH ×3 (00:56→19:03)
[2021-01-30] MEDS: FENTANYL-0.9 % NACL/PF 100 ML IV PRN (01:12)
[2021-01-30 04:26] LABS: ABG BASE EXCESS -0.8 mmol/L (-2.0-2.0); ABG HCO3 25.2 mmol/L (22.0-26.0); ABG PCO2 (T) 50.2 mmHg (32.0-45.0); ALLEN'S TEST POSITIVE; FCOHb 2.5 % (0.0-3.9); FMetHb 0.2 % (0.0-1.5); FO2Hb 87.6 % (94-97); PATIENT TEMPERATURE 37.9; PEEP 5 cm H2O; RESPIRATORY RATE 22 b/min; TIDAL VOLUME 425 mL; TOTAL HEMOGLOBIN 8.6 G/dl (12.0-16.0)
--- NOTE | 2021-01-30 06:30 | NUR ---
Patient in room CICU 2013. I have received report from anthony and had the opportunity to ask questions and assume patient care.
[2021-01-30 07:12] LABS: BASOPHILS % (AUTO) 0.3 % (0-1); EOSINOPHILS % (AUTO) 0 % (0-6); HEMATOCRIT 24.8 % (35.0-45.0); HEMOGLOBIN 7.6 g/dl (12.0-16.0); LYMPHOCYTES # (AUTO) 0.8 X10'3 (1.1-4.8); LYMPHOCYTES % (AUTO) 6.7 % (21-51); MEAN CORPUSCULAR HGB CONC 30.8 g/dL (33.0-36.5); MEAN CORPUSCULAR VOLUME 87.8 FL (78-98); MEAN PLATELET VOLUME 8.2 FL (7.4-10.4); MONOCYTES # (AUTO) 0.4 X10'3 (0-0.9); MONOCYTES % (AUTO) 3.4 % (2-12); NEUTROPHILS # (AUTO) 10.5 X10'3 (1.8-7.7); NEUTROPHILS % (AUTO) 89.6 % (42-75); PLATELET COUNT 193 X10'3 (140-440); RED BLOOD COUNT 2.83 X10'6 (4.20-5.60); RED CELL DISTRIBUTION WIDTH 23.3 % (11.5-14.5); WHITE BLOOD COUNT 11.7 X10'3 (4.5-11.0)
[2021-01-30 07:31] LABS: PARTIAL THROMBOPLASTIN TIME 36 SECONDS (22-32)
[2021-01-30 07:37] LABS: ALANINE AMINOTRANSFERASE 50 U/L (12-78); ALBUMIN 3.1 G/DL (3.4-5.0); ALKALINE PHOSPHATASE 88 IU/L (46-116); ANION GAP 11 (8-16); ASPARTATE AMINO TRANSFERASE 52 U/L (10-37); BILIRUBIN,TOTAL 1.4 MG/DL (0.1-1.0); BLOOD UREA NITROGEN 20 MG/DL (7-18); BUN/CREATININE RATIO 32.8 (6.6-38.0); CALCIUM 7.2 MG/DL (8.5-10.1); CHLORIDE 108 MMOL/L (99-107); CREATININE 0.61 MG/DL (0.40-0.90); GLUCOSE 135 MG/DL (70-104); MAGNESIUM 1.8 MG/DL (1.5-2.4); PHOSPHORUS 2.7 MG/DL (2.3-4.5); POTASSIUM 3.7 MMOL/L (3.5-5.1); SODIUM 145 MMOL/L (135-145); TOTAL CARBON DIOXIDE 26.4 MMOL/L (24-32); TOTAL PROTEIN 6.2 G/DL (6.4-8.2); eGFR > 90 ML/MIN
[2021-01-30] MEDS: sodium chloride 3% for inhalation 4ml nebule IH SCH ×2 (07:54→19:28)
[2021-01-30] MEDS: budesonide 0.5mg/2ml UD nebule IH SCH (07:54)
[2021-01-30] MEDS: amLODIPine 5mg tablet OGT SCH (08:00)
[2021-01-30] MEDS: docusate sodium 100mg/10ml UD cup OGT SCH ×2 (08:00→19:39)
[2021-01-30 08:31] LABS: ANISOCYTOSIS 3+; PLATELET ESTIMATE NORMAL; POLYCHROMASIA 2+; TOTAL CELLS COUNTED 100
[2021-01-30 08:32] LABS: HYPOCHROMASIA 1+; POIKILOCYTOSIS 1+; TOXIC GRANULATION 1+
--- NOTE | 2021-01-30 09:34 | NUR ---
TF consult: Per surgeon note g-tube dislodged and needs replacement, which was performed 01/29 per EMR. Now okay to use G-tube per consult. Recommend resuming previous TF recommendations, see below. Okay to resume at goal rate as pt previously tolerating well with minimal GRV. LBM 01/29 with 170 mL stool output per I&O. Will continue to follow. Recommendations: 1) Continuous Vital High Protein via G-tube at 60 mL/hr. To provide 1440 mL total volume/day, 1440 kcal, 126 g protein, and 1204 mL water 2) Additional 150 mL water flush Q4H per MD; monitor serum Na 3) Prealbumin q Monday/ 4) Routine bowel care; monitor need for additional given previous constipation 5) Daily scaled weight Addendum: 01/30/21 at [address] Amended: Links added.
[2021-01-30] MEDS: dexamethasone 4mg/ml inj IV SCH (09:40)
[2021-01-30] MEDS: nystatin 15 GM powder TP SCH ×3 (09:42→21:00)
[2021-01-30] MEDS: levoTHYROXINE 75mcg tablet OGT SCH (09:55)
[2021-01-30] MEDS: lansoprazole 15mg solutab OGT SCH (09:56)
[2021-01-30] MEDS: lactobacillus rhamnosus 10,000 MMU CELLS/CAPSULE OGT SCH ×2 (09:56→19:39)
--- NOTE | 2021-01-30 12:00 | NUR ---
update to dr mendez and dr ruiz. pt moves slightly with care. sedation off since 299. levo decreased- tolerating well.
--- NOTE | 2021-01-30 14:00 | NUR ---
abd drsg changed- incision with sutures and retention sutures- clean dry. g tube used for meds and tf started- mark well
[2021-01-30] MEDS: albuterol 2.5 MG/3 ML nebule NEB PRN (19:28)
[2021-01-30] MEDS: enoxaparin 100mg/ml syringe SUBCUT SCH (19:39)
[2021-01-30] MEDS: insulin glargine (Lantus) pen - multi-dose SQ SCH (21:00)
[2021-01-30] MEDS: insulin regular, human U-100 3ml vial - multi-dose SQ SCH (22:02)
[2021-01-31] VITALS (25 sets, daily range): BP systolic 96–123; BP diastolic 49–76
[2021-01-31 03:49] LABS: ABG BASE EXCESS 1.9 mmol/L (-2.0-2.0); ABG HCO3 28.2 mmol/L (22.0-26.0); ABG OXYGEN SATURATION 91.4 % (94-97); ABG PCO2 (T) 55.7 mmHg (32.0-45.0); ABG PO2 (T) 67.6 mmHg (75.0-100.0); ALLEN'S TEST POSITIVE; FCOHb 1.5 % (0.0-3.9); FMetHb 0.1 % (0.0-1.5); FO2Hb 89.9 % (94-97); PATIENT TEMPERATURE 37.3; PEEP 12 cm H2O; RESPIRATORY RATE 22 b/min; TIDAL VOLUME 425 mL; TOTAL HEMOGLOBIN 7.4 G/dl (12.0-16.0)
[2021-01-31 06:08] LABS: BASOPHILS % (AUTO) 0.3 % (0-1); EOSINOPHILS % (AUTO) 0.7 % (0-6); LYMPHOCYTES # (AUTO) 0.6 X10'3 (1.1-4.8); MEAN CORPUSCULAR HEMOGLOBIN 27.6 PG (27.0-31.0); MEAN CORPUSCULAR HGB CONC 31.3 g/dL (33.0-36.5); MEAN CORPUSCULAR VOLUME 88.2 FL (78-98); MONOCYTES # (AUTO) 0.3 X10'3 (0-0.9); MONOCYTES % (AUTO) 4.9 % (2-12); NEUTROPHILS % (AUTO) 85.1 % (42-75); PLATELET COUNT 178 X10'3 (140-440); RED BLOOD COUNT 2.48 X10'6 (4.20-5.60); RED CELL DISTRIBUTION WIDTH 23.8 % (11.5-14.5); WHITE BLOOD COUNT 7.1 X10'3 (4.5-11.0)
[2021-01-31 06:13] LABS: HEMOGLOBIN 6.8 g/dl (12.0-16.0)
[2021-01-31 06:14] LABS: HEMATOCRIT 21.9 % (35.0-45.0)
[2021-01-31 06:27] LABS: PARTIAL THROMBOPLASTIN TIME 34 SECONDS (22-32)
[2021-01-31 07:13] LABS: ALANINE AMINOTRANSFERASE 47 U/L (12-78); ALBUMIN 3.2 G/DL (3.4-5.0); ALKALINE PHOSPHATASE 66 IU/L (46-116); ANION GAP 10 (8-16); ASPARTATE AMINO TRANSFERASE 39 U/L (10-37); BLOOD UREA NITROGEN 23 MG/DL (7-18); BUN/CREATININE RATIO 42.6 (6.6-38.0); CALCIUM 7.3 MG/DL (8.5-10.1); CHLORIDE 112 MMOL/L (99-107); CREATININE 0.54 MG/DL (0.40-0.90); GLUCOSE 155 MG/DL (70-104); PHOSPHORUS 2.1 MG/DL (2.3-4.5); POTASSIUM 3.5 MMOL/L (3.5-5.1); SODIUM 148 MMOL/L (135-145); TOTAL CARBON DIOXIDE 26.3 MMOL/L (24-32); TOTAL PROTEIN 6.5 G/DL (6.4-8.2); eGFR > 90 ML/MIN
[2021-01-31 07:52] LABS: ELLIPTOCYTES FEW; HYPOCHROMASIA 1+; PLATELET ESTIMATE NORMAL; POLYCHROMASIA 2+; TOTAL CELLS COUNTED 100
[2021-01-31 07:53] LABS: ANISOCYTOSIS 3+; TOXIC GRANULATION 1+
[2021-01-31] MEDS: albumin (human) 25% 100 ML IV solution IV SCH ×3 (07:57→16:23)
[2021-01-31] MEDS: lactobacillus rhamnosus 10,000 MMU CELLS/CAPSULE OGT SCH ×2 (07:59→19:23)
[2021-01-31] MEDS: nystatin 15 GM powder TP SCH ×3 (07:59→21:35)
[2021-01-31] MEDS: lansoprazole 15mg solutab OGT SCH (07:59)
[2021-01-31] MEDS: levoTHYROXINE 75mcg tablet OGT SCH (07:59)
[2021-01-31] MEDS: dexamethasone 4mg/ml inj IV SCH (07:59)
[2021-01-31] MEDS: amLODIPine 5mg tablet OGT SCH (08:00)
[2021-01-31] MEDS: docusate sodium 100mg/10ml UD cup OGT SCH ×2 (08:00→19:23)
[2021-01-31] MEDS: budesonide 0.5mg/2ml UD nebule IH SCH (08:10)
[2021-01-31] MEDS: sodium chloride 3% for inhalation 4ml nebule IH SCH ×2 (08:10→19:24)
[2021-01-31 08:28] LABS: MAGNESIUM 2.1 MG/DL (1.5-2.4)
[2021-01-31 08:40] LABS: BASOPHILS % (AUTO) 0.2 % (0-1); EOSINOPHILS % (AUTO) 0.6 % (0-6); LYMPHOCYTES # (AUTO) 0.5 X10'3 (1.1-4.8); LYMPHOCYTES % (AUTO) 7.7 % (21-51); MEAN CORPUSCULAR HEMOGLOBIN 27.6 PG (27.0-31.0); MEAN CORPUSCULAR HGB CONC 31.2 g/dL (33.0-36.5); MEAN CORPUSCULAR VOLUME 88.3 FL (78-98); MEAN PLATELET VOLUME 7.9 FL (7.4-10.4); MONOCYTES # (AUTO) 0.3 X10'3 (0-0.9); MONOCYTES % (AUTO) 5.3 % (2-12); NEUTROPHILS # (AUTO) 5.5 X10'3 (1.8-7.7); NEUTROPHILS % (AUTO) 86.2 % (42-75); PLATELET COUNT 177 X10'3 (140-440); RED BLOOD COUNT 2.49 X10'6 (4.20-5.60); RED CELL DISTRIBUTION WIDTH 23.7 % (11.5-14.5); WHITE BLOOD COUNT 6.4 X10'3 (4.5-11.0)
[2021-01-31 08:42] LABS: HEMOGLOBIN 6.9 g/dl (12.0-16.0)
[2021-01-31] MEDS: insulin regular, human U-100 3ml vial - multi-dose SQ SCH ×3 (09:08→20:36)
[2021-01-31] MEDS: FENTANYL-0.9 % NACL/PF 100 ML IV PRN (11:08)
--- NOTE | 2021-01-31 11:22 | NUR ---
ASSUMED PT CARE
[2021-01-31] MEDS: NORepinephrine 8mg/ 250ml NS 250 ML IV SCH (15:00)
[2021-01-31] MEDS: albuterol 2.5 MG/3 ML nebule NEB PRN (19:24)
[2021-01-31] MEDS: insulin glargine (Lantus) pen - multi-dose SQ SCH (20:34)
[2021-02-01] VITALS (38 sets, daily range): BP systolic 96–135; BP diastolic 48–73
[2021-02-01] MEDS: albumin (human) 25% 100 ML IV solution IV SCH ×2 (00:37→08:50)
[2021-02-01] MEDS: NORepinephrine 8mg/ 250ml NS 250 ML IV SCH ×2 (02:37→12:56)
[2021-02-01] MEDS: insulin regular, human U-100 3ml vial - multi-dose SQ SCH ×4 (02:40→20:53)
[2021-02-01 03:14] LABS: BASOPHILS % (AUTO) 0.2 % (0-1); EOSINOPHILS % (AUTO) 0.2 % (0-6); LYMPHOCYTES # (AUTO) 0.5 X10'3 (1.1-4.8); MEAN CORPUSCULAR HEMOGLOBIN 27.7 PG (27.0-31.0); MEAN CORPUSCULAR HGB CONC 31.5 g/dL (33.0-36.5); MEAN PLATELET VOLUME 7.9 FL (7.4-10.4); MONOCYTES # (AUTO) 0.4 X10'3 (0-0.9); MONOCYTES % (AUTO) 6.9 % (2-12); NEUTROPHILS # (AUTO) 4.9 X10'3 (1.8-7.7); NEUTROPHILS % (AUTO) 84.7 % (42-75); PLATELET COUNT 171 X10'3 (140-440); RED BLOOD COUNT 2.47 X10'6 (4.20-5.60); RED CELL DISTRIBUTION WIDTH 22.4 % (11.5-14.5); WHITE BLOOD COUNT 5.7 X10'3 (4.5-11.0)
[2021-02-01 03:31] LABS: D-DIMER 28.15 MG/L FEU (0-0.50); HEMATOCRIT 21.7 % (35.0-45.0); HEMOGLOBIN 6.8 g/dl (12.0-16.0); PARTIAL THROMBOPLASTIN TIME 30 SECONDS (22-32)
--- NOTE | 2021-02-01 03:50 | NUR ---
Dr Edward notified about Hgb 6.8 and Hct 21.7 this am. Notified about increased serous drainage from MADELINE. States not to transfuse but monitor for now.
[2021-02-01 04:03] LABS: ALANINE AMINOTRANSFERASE 49 U/L (12-78); ALBUMIN 3.5 G/DL (3.4-5.0); ALBUMIN/GLOBULIN RATIO 1.1 (1.1-1.5); ALKALINE PHOSPHATASE 61 IU/L (46-116); ANION GAP 9 (8-16); ASPARTATE AMINO TRANSFERASE 43 U/L (10-37); BILIRUBIN,TOTAL 1.5 MG/DL (0.1-1.0); BLOOD UREA NITROGEN 35 MG/DL (7-18); BUN/CREATININE RATIO 60.3 (6.6-38.0); CALCIUM 7.7 MG/DL (8.5-10.1); CHLORIDE 112 MMOL/L (99-107); CREATININE 0.58 MG/DL (0.40-0.90); GLUCOSE 140 MG/DL (70-104); PHOSPHORUS 1.9 MG/DL (2.3-4.5); POTASSIUM 3.5 MMOL/L (3.5-5.1); PREALBUMIN 7.6 MG/DL (19-36); SODIUM 151 MMOL/L (135-145); TOTAL CARBON DIOXIDE 29.8 MMOL/L (24-32); TOTAL PROTEIN 6.7 G/DL (6.4-8.2); eGFR > 90 ML/MIN
[2021-02-01 04:34] LABS: ABG BASE EXCESS 2.1 mmol/L (-2.0-2.0); ABG HCO3 27.9 mmol/L (22.0-26.0); ABG OXYGEN SATURATION 96.3 % (94-97); ABG PCO2 (T) 53.1 mmHg (32.0-45.0); ABG PO2 (T) 89.8 mmHg (75.0-100.0); ALLEN'S TEST POSITIVE; FCOHb 1.8 % (0.0-3.9); FMetHb 0.1 % (0.0-1.5); FO2Hb 94.5 % (94-97); PEEP 5 cm H2O; RESPIRATORY RATE 22 b/min; TIDAL VOLUME 425 mL; TOTAL HEMOGLOBIN 7.7 G/dl (12.0-16.0)
[2021-02-01] MEDS: acetaminophen 325mg/10.15ml oral unit dose solution OGT PRN (04:46)
[2021-02-01] MEDS: budesonide 0.5mg/2ml UD nebule IH SCH (07:38)
[2021-02-01] MEDS: sodium chloride 3% for inhalation 4ml nebule IH SCH ×2 (07:39→19:23)
[2021-02-01 07:55] LABS: C-REACTIVE PROTEIN 22.16 MG/DL (0.0-0.5); LACTATE DEHYDROGENASE 302 U/L (81-234)
[2021-02-01] MEDS: nystatin 15 GM powder TP SCH ×3 (08:00→20:08)
[2021-02-01] MEDS: docusate sodium 100mg/10ml UD cup OGT SCH ×2 (08:00→19:48)
[2021-02-01] MEDS: amLODIPine 5mg tablet OGT SCH (08:00)
[2021-02-01] MEDS: dexamethasone 4mg/ml inj IV SCH (08:48)
[2021-02-01] MEDS: levoTHYROXINE 75mcg tablet OGT SCH (08:49)
[2021-02-01] MEDS: lactobacillus rhamnosus 10,000 MMU CELLS/CAPSULE OGT SCH ×2 (08:49→19:48)
[2021-02-01] MEDS: lansoprazole 15mg solutab OGT SCH (08:49)
--- NOTE | 2021-02-01 11:08 | NUR ---
F/u 02/01: Pt serum Na 151 increasing w/ TF at goal and 150ml Q4H free water started. Free water okay to increase to 200ml Q4H per nutrition technician. Updated recs below. Recommendations: 1) Continuous Vital High Protein via G-tube at 60 mL/hr. To provide 1440 mL total volume/day, 1440 kcal, 126 g protein, and 1204 mL water 2) Additional 200mL water flush Q4H per MD; monitor serum Na 3) Prealbumin q Monday/; daily wts 4) Routine bowel care; monitor need for additional given previous constipation Addendum: 02/01/21 at [address] Amended: Links added.
[2021-02-01 12:58] LABS: HEMOGLOBIN 7.6 g/dl (12.0-16.0); MEAN CORPUSCULAR HEMOGLOBIN 27.9 PG (27.0-31.0); MEAN CORPUSCULAR HGB CONC 31.8 g/dL (33.0-36.5); MEAN CORPUSCULAR VOLUME 87.7 FL (78-98); PLATELET COUNT 176 X10'3 (140-440); RED BLOOD COUNT 2.73 X10'6 (4.20-5.60); RED CELL DISTRIBUTION WIDTH 22.9 % (11.5-14.5); WHITE BLOOD COUNT 5.5 X10'3 (4.5-11.0)
[2021-02-01] MEDS: FENTANYL-0.9 % NACL/PF 100 ML IV PRN (17:09)
[2021-02-01] MEDS ORDERED: LORazepam 2 mg/ml vial IV PRN (18:00)
[2021-02-01] MEDS ORDERED: morphine 2 MG/ML inj. syringe IV PRN (18:00)
[2021-02-01] MEDS ORDERED: morphine 4 MG/ML inj SYRINge IV PRN (18:00)
[2021-02-01] MEDS: albuterol 2.5 MG/3 ML nebule NEB PRN (19:23)
[2021-02-01] MEDS: enoxaparin 80mg/0.8ml syringe SUBCUT SCH (19:54)
[2021-02-01] MEDS ORDERED: furosemide 40mg/4ml inj IV ONE (20:15)
[2021-02-01] MEDS: insulin glargine (Lantus) pen - multi-dose SQ SCH (20:51)
[2021-02-02] VITALS (24 sets, daily range): BP systolic 91–132; BP diastolic 36–74
[2021-02-02] MEDS: insulin regular, human U-100 3ml vial - multi-dose SQ SCH ×4 (02:54→21:01)
[2021-02-02] MEDS: NORepinephrine 8mg/ 250ml NS 250 ML IV SCH ×2 (03:24→15:19)
[2021-02-02 03:40] LABS: ABG BASE EXCESS 3.5 mmol/L (-2.0-2.0); ABG HCO3 29.6 mmol/L (22.0-26.0); ABG OXYGEN SATURATION 92.6 % (94-97); ABG PCO2 (T) 53.5 mmHg (32.0-45.0); ABG PO2 (T) 67.2 mmHg (75.0-100.0); ALLEN'S TEST POSITIVE; FCOHb 1.2 % (0.0-3.9); FMetHb 0.2 % (0.0-1.5); FO2Hb 91.3 % (94-97); PATIENT TEMPERATURE 37.1; PEEP 5 cm H2O; RESPIRATORY RATE 22 b/min; TIDAL VOLUME 425 mL; TOTAL HEMOGLOBIN 8.9 G/dl (12.0-16.0)
[2021-02-02 05:27] LABS: BASOPHILS % (AUTO) 0.5 % (0-1); EOSINOPHILS % (AUTO) 0.3 % (0-6); HEMOGLOBIN 8.9 g/dl (12.0-16.0); LYMPHOCYTES # (AUTO) 0.5 X10'3 (1.1-4.8); LYMPHOCYTES % (AUTO) 8.5 % (21-51); MEAN CORPUSCULAR HEMOGLOBIN 28.2 PG (27.0-31.0); MEAN CORPUSCULAR HGB CONC 31.8 g/dL (33.0-36.5); MEAN CORPUSCULAR VOLUME 88.4 FL (78-98); MONOCYTES # (AUTO) 0.3 X10'3 (0-0.9); MONOCYTES % (AUTO) 6.5 % (2-12); NEUTROPHILS # (AUTO) 4.5 X10'3 (1.8-7.7); NEUTROPHILS % (AUTO) 84.2 % (42-75); PLATELET COUNT 158 X10'3 (140-440); RED BLOOD COUNT 3.17 X10'6 (4.20-5.60); RED CELL DISTRIBUTION WIDTH 21.3 % (11.5-14.5); WHITE BLOOD COUNT 5.4 X10'3 (4.5-11.0)
[2021-02-02 05:45] LABS: PARTIAL THROMBOPLASTIN TIME 31 SECONDS (22-32)
[2021-02-02 05:46] LABS: D-DIMER > 35.20 MG/L FEU (0-0.50)
[2021-02-02 05:49] LABS: ALANINE AMINOTRANSFERASE 68 U/L (12-78); ALBUMIN 2.9 G/DL (3.4-5.0); ALBUMIN/GLOBULIN RATIO 0.8 (1.1-1.5); ALKALINE PHOSPHATASE 77 IU/L (46-116); ANION GAP 9 (8-16); ASPARTATE AMINO TRANSFERASE 70 U/L (10-37); BILIRUBIN,TOTAL 2.2 MG/DL (0.1-1.0); BLOOD UREA NITROGEN 39 MG/DL (7-18); BUN/CREATININE RATIO 45.9 (6.6-38.0); CALCIUM 7.8 MG/DL (8.5-10.1); CHLORIDE 113 MMOL/L (99-107); CREATININE 0.85 MG/DL (0.40-0.90); GLUCOSE 218 MG/DL (70-104); PHOSPHORUS 2.4 MG/DL (2.3-4.5); SODIUM 152 MMOL/L (135-145); TOTAL CARBON DIOXIDE 30.5 MMOL/L (24-32); TOTAL PROTEIN 6.6 G/DL (6.4-8.2); eGFR 70 ML/MIN
--- NOTE | 2021-02-02 06:30 | NUR ---
Patient in room CICU 2013. I have received report from Jt QUINTANA and had the opportunity to ask questions and assume patient care.
[2021-02-02] MEDS: potassium Cl 40MEQ/250ML bag 270 ML IV PRN ×2 (06:41→10:17)
[2021-02-02] MEDS: fluconazole/NS 400mg/200ml bag 200 ML IV SCH (07:32)
[2021-02-02] MEDS: enoxaparin 80mg/0.8ml syringe SUBCUT SCH ×2 (07:32→20:09)
[2021-02-02] MEDS: lactobacillus rhamnosus 10,000 MMU CELLS/CAPSULE OGT SCH ×2 (07:33→20:08)
[2021-02-02] MEDS: docusate sodium 100mg/10ml UD cup OGT SCH ×2 (07:33→20:08)
[2021-02-02] MEDS: lansoprazole 15mg solutab OGT SCH (07:33)
[2021-02-02] MEDS: amLODIPine 5mg tablet OGT SCH (07:33)
[2021-02-02] MEDS: levoTHYROXINE 75mcg tablet OGT SCH (07:33)
[2021-02-02] MEDS: piperacillin/tazo 3.375gm/50ml 50 ML IV SCH ×3 (07:34→15:25)
[2021-02-02] MEDS: nystatin 15 GM powder TP SCH ×3 (07:34→20:09)
[2021-02-02 07:52] LABS: ANISOCYTOSIS 3+; PLATELET ESTIMATE NORMAL; TOTAL CELLS COUNTED 100
[2021-02-02 07:53] LABS: TOXIC GRANULATION 1+
[2021-02-02] MEDS: sodium chloride 3% for inhalation 4ml nebule IH SCH ×2 (08:09→19:20)
[2021-02-02] MEDS: budesonide 0.5mg/2ml UD nebule IH SCH (08:09)
[2021-02-02 08:23] LABS: C-REACTIVE PROTEIN 23.77 MG/DL (0.0-0.5); LACTATE DEHYDROGENASE 378 U/L (81-234)
[2021-02-02] MEDS: acetaminophen 325mg/10.15ml oral unit dose solution OGT PRN (14:07)
--- NOTE | 2021-02-02 18:34 | NUR ---
Problems reprioritized. Patient report given, questions answered & plan of care reviewed with Katie RN.
[2021-02-02] MEDS: albuterol 2.5 MG/3 ML nebule NEB PRN (19:20)
[2021-02-02] MEDS: insulin glargine (Lantus) pen - multi-dose SQ SCH (20:59)
[2021-02-03] VITALS (24 sets, daily range): BP systolic 97–137; BP diastolic 44–80
[2021-02-03] MEDS: insulin regular, human U-100 3ml vial - multi-dose SQ SCH ×4 (02:07→20:25)
[2021-02-03 03:54] LABS: ABG BASE EXCESS 4.9 mmol/L (-2.0-2.0); ABG HCO3 29.8 mmol/L (22.0-26.0); ABG OXYGEN SATURATION 96.8 % (94-97); ABG PCO2 (T) 46.5 mmHg (32.0-45.0); ABG PO2 (T) 84.4 mmHg (75.0-100.0); ALLEN'S TEST POSITIVE; FCOHb 1.1 % (0.0-3.9); FMetHb 0.2 % (0.0-1.5); FO2Hb 95.5 % (94-97); PATIENT TEMPERATURE 37.2; PEEP 5 cm H2O; RESPIRATORY RATE 22 b/min; TIDAL VOLUME 425 mL; TOTAL HEMOGLOBIN 8.8 G/dl (12.0-16.0)
[2021-02-03 05:58] LABS: BASOPHILS % (AUTO) 0.1 % (0-1); EOSINOPHILS % (AUTO) 0.3 % (0-6); HEMATOCRIT 27.2 % (35.0-45.0); HEMOGLOBIN 8.5 g/dl (12.0-16.0); LYMPHOCYTES # (AUTO) 0.9 X10'3 (1.1-4.8); LYMPHOCYTES % (AUTO) 11.6 % (21-51); MEAN CORPUSCULAR HEMOGLOBIN 27.6 PG (27.0-31.0); MEAN CORPUSCULAR HGB CONC 31.2 g/dL (33.0-36.5); MEAN CORPUSCULAR VOLUME 88.5 FL (78-98); MEAN PLATELET VOLUME 8.3 FL (7.4-10.4); MONOCYTES # (AUTO) 0.4 X10'3 (0-0.9); MONOCYTES % (AUTO) 5.9 % (2-12); NEUTROPHILS # (AUTO) 6.2 X10'3 (1.8-7.7); NEUTROPHILS % (AUTO) 82.1 % (42-75); PLATELET COUNT 185 X10'3 (140-440); RED BLOOD COUNT 3.08 X10'6 (4.20-5.60); WHITE BLOOD COUNT 7.6 X10'3 (4.5-11.0)
[2021-02-03 06:18] LABS: D-DIMER 22.84 MG/L FEU (0-0.50); PARTIAL THROMBOPLASTIN TIME 31 SECONDS (22-32)
[2021-02-03 06:31] LABS: ALANINE AMINOTRANSFERASE 71 U/L (12-78); ALBUMIN 2.5 G/DL (3.4-5.0); ALBUMIN/GLOBULIN RATIO 0.6 (1.1-1.5); ALKALINE PHOSPHATASE 76 IU/L (46-116); ANION GAP 10 (8-16); ASPARTATE AMINO TRANSFERASE 71 U/L (10-37); BILIRUBIN,TOTAL 1.5 MG/DL (0.1-1.0); BLOOD UREA NITROGEN 46 MG/DL (7-18); BUN/CREATININE RATIO 59.7 (6.6-38.0); CALCIUM 8.2 MG/DL (8.5-10.1); CHLORIDE 117 MMOL/L (99-107); CREATININE 0.77 MG/DL (0.40-0.90); GLUCOSE 114 MG/DL (70-104); PHOSPHORUS 1.7 MG/DL (2.3-4.5); TOTAL CARBON DIOXIDE 30.2 MMOL/L (24-32); TOTAL PROTEIN 6.7 G/DL (6.4-8.2); TRIGLYCERIDES 81 MG/DL (20-135); eGFR 78 ML/MIN
[2021-02-03 06:40] LABS: SODIUM 157 MMOL/L (135-145)
[2021-02-03] MEDS: enoxaparin 80mg/0.8ml syringe SUBCUT SCH ×2 (07:28→20:14)
[2021-02-03] MEDS: acetaminophen 325mg/10.15ml oral unit dose solution OGT PRN (07:29)
[2021-02-03] MEDS: levoTHYROXINE 75mcg tablet OGT SCH (07:29)
[2021-02-03] MEDS: lactobacillus rhamnosus 10,000 MMU CELLS/CAPSULE OGT SCH ×2 (07:29→20:14)
[2021-02-03] MEDS: lansoprazole 15mg solutab OGT SCH (07:29)
[2021-02-03] MEDS: amLODIPine 5mg tablet OGT SCH (07:30)
[2021-02-03] MEDS: linezolid 600mg/300ml PREMIX 300 ML IV SCH ×2 (07:30→20:13)
[2021-02-03] MEDS: piperacillin/tazo 3.375gm/50ml 50 ML IV SCH ×3 (07:30→15:21)
[2021-02-03] MEDS: docusate sodium 100mg/10ml UD cup OGT SCH ×2 (07:31→20:00)
[2021-02-03] MEDS: nystatin 15 GM powder TP SCH ×3 (07:31→20:15)
[2021-02-03] MEDS: fluconazole/NS 400mg/200ml bag 200 ML IV SCH (07:31)
[2021-02-03] MEDS: sodium chloride 3% for inhalation 4ml nebule IH SCH ×2 (08:19→19:19)
[2021-02-03] MEDS: budesonide 0.5mg/2ml UD nebule IH SCH ×2 (08:19→19:19)
[2021-02-03] MEDS: albuterol 2.5 MG/3 ML nebule NEB PRN ×2 (08:27→19:19)
[2021-02-03 11:25] LABS: ANISOCYTOSIS 3+; PLATELET ESTIMATE NORMAL
--- NOTE | 2021-02-03 12:20 | NUR ---
pt taken to CT at this time
--- NOTE | 2021-02-03 12:42 | NUR ---
Reassessment: Pt remains intubated and tolerating TF at goal rate with GRV WNL. Noted serum Na up to 157 MMOL/L while receiving 200 mL water flush Q4H, d/w MD who requests water flushes be increased to 300 mL Q4H. EMR updated and d/w RN. Noted pt started on Zyvox, low tyramine nutrition therapy education not appropriate at this time. LBM 02/01 documented with only 50 mL stool output per I&O though routine Colace held this morning d/t diarrhea per EMR. Will continue to follow. Recommendations: 1) Continuous Vital High Protein via G-tube at 60 mL/hr. To provide 1440 mL total volume/day, 1440 kcal, 126 g protein, and 1204 mL water 2) Additional 300 mL water flush Q4H per MD; monitor serum Na 3) Prealbumin q Monday/; daily wts 4) Routine bowel care; monitor need for additional given previous constipation 5) Low tyramine nutrition therapy education once stable following extubation if indicated Addendum: 02/03/21 at [address] Amended: Links added.
[2021-02-03] MEDS: diatr meglu/diatrizoate 30ml oral sol.-(3 dose) bottle PO SCH ×2 (15:23→18:00)
--- NOTE | 2021-02-03 15:39 | NUR ---
Pt will have repeat CT once Radiology calls with availability.
[2021-02-03] MEDS: insulin glargine (Lantus) pen - multi-dose SQ SCH (20:24)
[2021-02-04] VITALS (24 sets, daily range): BP systolic 95–134; BP diastolic 51–74
[2021-02-04] MEDS: insulin regular, human U-100 3ml vial - multi-dose SQ SCH ×3 (01:52→20:53)
[2021-02-04 03:35] LABS: ABG BASE EXCESS 6.2 mmol/L (-2.0-2.0); ABG HCO3 32.2 mmol/L (22.0-26.0); ABG PCO2 (T) 57.4 mmHg (32.0-45.0); ALLEN'S TEST POSITIVE; FCOHb 1.2 % (0.0-3.9); FO2Hb 95.8 % (94-97); PATIENT TEMPERATURE 38.2; PEEP 5 cm H2O; RESPIRATORY RATE 22 b/min; TIDAL VOLUME 425 mL; TOTAL HEMOGLOBIN 9.2 G/dl (12.0-16.0)
[2021-02-04 06:13] LABS: LYMPHOCYTES # (AUTO) 0.9 X10'3 (1.1-4.8); MEAN CORPUSCULAR VOLUME 87.2 FL (78-98); MEAN PLATELET VOLUME 8.3 FL (7.4-10.4); WHITE BLOOD COUNT 9.6 X10'3 (4.5-11.0)
[2021-02-04 06:16] LABS: BASOPHILS % (AUTO) 0.1 % (0-1); D-DIMER 17.55 MG/L FEU (0-0.50); EOSINOPHILS # (AUTO) 0.2 X10'3 (0-0.9); HEMATOCRIT 27.1 % (35.0-45.0); HEMOGLOBIN 8.9 g/dl (12.0-16.0); LYMPHOCYTES % (AUTO) 9.6 % (21-51); MEAN CORPUSCULAR HEMOGLOBIN 28.5 PG (27.0-31.0); MEAN CORPUSCULAR HGB CONC 32.7 g/dL (33.0-36.5); MONOCYTES # (AUTO) 0.5 X10'3 (0-0.9); MONOCYTES % (AUTO) 4.7 % (2-12); NEUTROPHILS % (AUTO) 83.6 % (42-75); PARTIAL THROMBOPLASTIN TIME 29 SECONDS (22-32); PLATELET COUNT 164 X10'3 (140-440); RED BLOOD COUNT 3.11 X10'6 (4.20-5.60); RED CELL DISTRIBUTION WIDTH 22.6 % (11.5-14.5)
[2021-02-04] MEDS: diatr meglu/diatrizoate 30ml oral sol.-(3 dose) bottle PO SCH (06:19)
[2021-02-04 06:23] LABS: ALANINE AMINOTRANSFERASE 71 U/L (12-78); ALBUMIN 2.2 G/DL (3.4-5.0); ALBUMIN/GLOBULIN RATIO 0.5 (1.1-1.5); ALKALINE PHOSPHATASE 90 IU/L (46-116); ANION GAP 6 (8-16); ASPARTATE AMINO TRANSFERASE 83 U/L (10-37); BILIRUBIN,TOTAL 1.1 MG/DL (0.1-1.0); BLOOD UREA NITROGEN 49 MG/DL (7-18); BUN/CREATININE RATIO 64.5 (6.6-38.0); CALCIUM 7.9 MG/DL (8.5-10.1); CHLORIDE 113 MMOL/L (99-107); CREATININE 0.76 MG/DL (0.40-0.90); GLUCOSE 131 MG/DL (70-104); PHOSPHORUS 2.4 MG/DL (2.3-4.5); POTASSIUM 3.8 MMOL/L (3.5-5.1); SODIUM 152 MMOL/L (135-145); TOTAL PROTEIN 6.6 G/DL (6.4-8.2); eGFR 80 ML/MIN
[2021-02-04] MEDS: piperacillin/tazo 3.375gm/50ml 50 ML IV SCH ×3 (07:22→15:30)
[2021-02-04] MEDS: linezolid 600mg/300ml PREMIX 300 ML IV SCH (07:23)
[2021-02-04] MEDS: fluconazole/NS 400mg/200ml bag 200 ML IV SCH (07:23)
[2021-02-04] MEDS: lactobacillus rhamnosus 10,000 MMU CELLS/CAPSULE OGT SCH ×2 (07:23→20:39)
[2021-02-04] MEDS: amLODIPine 5mg tablet OGT SCH (07:23)
[2021-02-04] MEDS: levoTHYROXINE 75mcg tablet OGT SCH (07:23)
[2021-02-04] MEDS: lansoprazole 15mg solutab OGT SCH (07:24)
[2021-02-04] MEDS: acetaminophen 325mg/10.15ml oral unit dose solution OGT PRN ×2 (07:24→15:30)
[2021-02-04] MEDS: docusate sodium 100mg/10ml UD cup OGT SCH ×2 (07:25→20:00)
[2021-02-04] MEDS: enoxaparin 80mg/0.8ml syringe SUBCUT SCH ×2 (07:25→20:41)
[2021-02-04] MEDS: nystatin 15 GM powder TP SCH ×3 (07:25→20:41)
[2021-02-04 07:42] LABS: ANISOCYTOSIS 3+; PLATELET ESTIMATE NORMAL; TOTAL CELLS COUNTED 100
[2021-02-04] MEDS: albuterol 2.5 MG/3 ML nebule NEB PRN ×2 (07:59→19:10)
[2021-02-04] MEDS: sodium chloride 3% for inhalation 4ml nebule IH SCH ×2 (08:00→19:10)
--- NOTE | 2021-02-04 14:20 | NUR ---
F/u 02/04: Due to national shortage of Vital AF and Vital High Protein, if substitution necessary, recommend Pivot 1.5, see recs below for if substitution. Unable to meet protein needs given high kcal formula Recommendations: 1) Continuous Vital High Protein via G-tube at 60 mL/hr. To provide 1440 mL total volume/day, 1440 kcal, 126 g protein, and 1204 mL water 2) Additional 300 mL water flush Q4H per MD; monitor serum Na 3) IF out of Vital High Protein sub Pivot 1.5 at 40ml/hr providing 960ml volume, 1440kcals, 90g protein, 729ml free water. Additonal 300ml water flush Q4H per MD. 4) Prealbumin q Monday/; daily wts 5) Routine bowel care; monitor need for additional given previous constipation 6) Low tyramine nutrition therapy education once stable following extubation if indicated Addendum: 02/04/21 at [address] Amended: Links added.
[2021-02-04] MEDS: insulin glargine (Lantus) pen - multi-dose SQ SCH (20:52)
[2021-02-05] VITALS (17 sets, daily range): BP systolic 101–125; BP diastolic 47–68
[2021-02-05] MEDS: insulin regular, human U-100 3ml vial - multi-dose SQ SCH ×3 (01:59→14:13)
[2021-02-05 02:58] LABS: ABG BASE EXCESS 6.4 mmol/L (-2.0-2.0); ABG HCO3 31.3 mmol/L (22.0-26.0); ABG PCO2 (T) 49.3 mmHg (32.0-45.0); ABG PO2 (T) 91.6 mmHg (75.0-100.0); ALLEN'S TEST POSITIVE; FCOHb 1.3 % (0.0-3.9); FMetHb 0.3 % (0.0-1.5); FO2Hb 95.4 % (94-97); PATIENT TEMPERATURE 38.2; PEEP 5 cm H2O; RESPIRATORY RATE 22 b/min; TIDAL VOLUME 425 mL; TOTAL HEMOGLOBIN 9.7 G/dl (12.0-16.0)
[2021-02-05] MEDS: acetaminophen 325mg/10.15ml oral unit dose solution OGT PRN ×2 (05:57→12:57)
[2021-02-05 05:58] LABS: BASOPHILS % (AUTO) 0.2 % (0-1); EOSINOPHILS # (AUTO) 0.3 X10'3 (0-0.9); EOSINOPHILS % (AUTO) 2.6 % (0-6); HEMATOCRIT 28.7 % (35.0-45.0); HEMOGLOBIN 9.1 g/dl (12.0-16.0); LYMPHOCYTES % (AUTO) 9.5 % (21-51); MEAN CORPUSCULAR HEMOGLOBIN 27.9 PG (27.0-31.0); MEAN CORPUSCULAR HGB CONC 31.5 g/dL (33.0-36.5); MEAN CORPUSCULAR VOLUME 88.6 FL (78-98); MEAN PLATELET VOLUME 8.9 FL (7.4-10.4); MONOCYTES # (AUTO) 0.5 X10'3 (0-0.9); NEUTROPHILS # (AUTO) 8.5 X10'3 (1.8-7.7); NEUTROPHILS % (AUTO) 82.7 % (42-75); PLATELET COUNT 124 X10'3 (140-440); RED BLOOD COUNT 3.24 X10'6 (4.20-5.60); RED CELL DISTRIBUTION WIDTH 22.4 % (11.5-14.5); WHITE BLOOD COUNT 10.3 X10'3 (4.5-11.0)
[2021-02-05 06:12] LABS: D-DIMER 13.93 MG/L FEU (0-0.50); PARTIAL THROMBOPLASTIN TIME 27 SECONDS (22-32)
[2021-02-05 06:20] LABS: ALANINE AMINOTRANSFERASE 61 U/L (12-78); ALBUMIN/GLOBULIN RATIO 0.4 (1.1-1.5); ALKALINE PHOSPHATASE 98 IU/L (46-116); ANION GAP 4 (8-16); ASPARTATE AMINO TRANSFERASE 64 U/L (10-37); BILIRUBIN,TOTAL 0.8 MG/DL (0.1-1.0); BLOOD UREA NITROGEN 40 MG/DL (7-18); BUN/CREATININE RATIO 51.9 (6.6-38.0); CALCIUM 7.3 MG/DL (8.5-10.1); CHLORIDE 111 MMOL/L (99-107); CREATININE 0.77 MG/DL (0.40-0.90); GLUCOSE 134 MG/DL (70-104); PHOSPHORUS 2.4 MG/DL (2.3-4.5); POTASSIUM 3.6 MMOL/L (3.5-5.1); SODIUM 148 MMOL/L (135-145); TOTAL CARBON DIOXIDE 32.8 MMOL/L (24-32); TOTAL PROTEIN 6.5 G/DL (6.4-8.2); eGFR 78 ML/MIN
[2021-02-05 06:59] LABS: ANISOCYTOSIS 3+; PLATELET ESTIMATE DECREASED; TOTAL CELLS COUNTED 100
[2021-02-05 07:00] LABS: HYPOCHROMASIA 1+
[2021-02-05] MEDS: piperacillin/tazo 3.375gm/50ml 50 ML IV SCH ×3 (07:14→15:59)
[2021-02-05] MEDS: lansoprazole 15mg solutab OGT SCH (07:17)
[2021-02-05] MEDS: enoxaparin 80mg/0.8ml syringe SUBCUT SCH (07:17)
[2021-02-05] MEDS: levoTHYROXINE 75mcg tablet OGT SCH (07:18)
[2021-02-05] MEDS: amLODIPine 5mg tablet OGT SCH (07:19)
[2021-02-05] MEDS: nystatin 15 GM powder TP SCH ×2 (07:20→13:04)
[2021-02-05] MEDS: lactobacillus rhamnosus 10,000 MMU CELLS/CAPSULE OGT SCH (07:20)
[2021-02-05] MEDS: docusate sodium 100mg/10ml UD cup OGT SCH (07:21)
[2021-02-05] MEDS: budesonide 0.5mg/2ml UD nebule IH SCH (07:22)
[2021-02-05] MEDS: fluconazole/NS 400mg/200ml bag 200 ML IV SCH (08:40)
--- NOTE | 2021-02-05 11:32 | NUR ---
WOUND CARE NURSE EVALUATED AND ASSESSED PT'S ABDOMINAL SX INCISION SITE. SHE STATES SHE WILL PUT ORDERS FOR DRESSING CHANGES
--- NOTE | 2021-02-05 11:55 | NUR ---
CASE MANAGMENT WILL PROVIDE PROJECT MANAGEMENT SPECIALIST TIME FOR PT TO BE TRANSFERED TO [facility] TODAY. PENDING CHART CLOSURE FROM
[2021-02-05] MEDS ORDERED: ENOX80DI13 SUBCUT (14:09)
[2021-02-05] MEDS ORDERED: ALBU2.5V7 NEB (14:09)
[2021-02-05] MEDS ORDERED: PIPE4.5F6 IV (14:09)
[2021-02-05] MEDS ORDERED: ACET160O2 OGT (14:09)
[2021-02-05] MEDS ORDERED: LEVO75TA7 OGT (14:09)
[2021-02-05] MEDS ORDERED: [UNRECOGNIZED DRUG - CODE] IV (14:09)
[2021-02-05] MEDS ORDERED: NYSPWD TP (14:09)
[2021-02-05] MEDS ORDERED: BUDE0.5A3 IH (14:09)
[2021-02-05] MEDS ORDERED: ALBU6.7H9 IH (14:09)
[2021-02-05] MEDS ORDERED: LORA2VIA4 IV ×2 (14:09)
[2021-02-05] MEDS ORDERED: MORP4CAR IV (14:09)
[2021-02-05] MEDS ORDERED: MORP2CAR IV (14:09)
--- NOTE | 2021-02-05 16:40 | NUR ---
[facility] report given to EMS for transfer. PT departed ICU at this time. All belongings taken. All questions answered.
== END 2021-02-05 16:49 | DRG 4 ==
LOC: UNDOADMIN 23:22 → ORTHO 4S 23:22 → UNDOADMIN 23:55 → ORTHO 4S 23:55 → UNDOADMIN 23:57 → ORTHO 4S 01-05 07:35 → CICU 2S 01-05 20:10
PROVIDERS: ADMIT Internal Medicine; ATTEND Family Medicine
PROC: 5A09357 Assistance with Respiratory Ventilation, Less than 24 Consecutive Hours, Continuous Positive Airway Pressure (ICD-10-PCS; 2020-12-30)
PROC: 5A09357 Assistance with Respiratory Ventilation, Less than 24 Consecutive Hours, Continuous Positive Airway Pressure (ICD-10-PCS; 2020-12-31)
PROC: 5A0945A Assistance with Respiratory Ventilation, 24-96 Consecutive Hours, High Flow/Velocity Cannula (ICD-10-PCS; 2021-01-01)
PROC: 5A09357 Assistance with Respiratory Ventilation, Less than 24 Consecutive Hours, Continuous Positive Airway Pressure (ICD-10-PCS; 2021-01-03)
PROC: 5A09357 Assistance with Respiratory Ventilation, Less than 24 Consecutive Hours, Continuous Positive Airway Pressure (ICD-10-PCS; 2021-01-04)
PROC: XW033H5 Introduction of Tocilizumab into Peripheral Vein, Percutaneous Approach, New Technology Group 5 (ICD-10-PCS; principal; 2021-01-05)
PROC: 5A1955Z Respiratory Ventilation, Greater than 96 Consecutive Hours (ICD-10-PCS; 2021-01-05)
PROC: 0BH17EZ Insertion of Endotracheal Airway into Trachea, Via Natural or Artificial Opening (ICD-10-PCS; 2021-01-05)
PROC: 5A09357 Assistance with Respiratory Ventilation, Less than 24 Consecutive Hours, Continuous Positive Airway Pressure (ICD-10-PCS; 2021-01-05)
PROC: 0D9670Z Drainage of Stomach with Drainage Device, Via Natural or Artificial Opening (ICD-10-PCS; 2021-01-05)
PROC: 5A12012 Performance of Cardiac Output, Single, Manual (ICD-10-PCS; 2021-01-05)
PROC: 02HV33Z Insertion of Infusion Device into Superior Vena Cava, Percutaneous Approach (ICD-10-PCS; 2021-01-07)
PROC: B548ZZA Ultrasonography of Superior Vena Cava, Guidance (ICD-10-PCS; 2021-01-07)
PROC: B32T1ZZ Computerized Tomography (CT Scan) of Left Pulmonary Artery using Low Osmolar Contrast (ICD-10-PCS; 2021-01-15)
PROC: B3201ZZ Computerized Tomography (CT Scan) of Thoracic Aorta using Low Osmolar Contrast (ICD-10-PCS; 2021-01-15)
PROC: B32S1ZZ Computerized Tomography (CT Scan) of Right Pulmonary Artery using Low Osmolar Contrast (ICD-10-PCS; 2021-01-15)
PROC: 0B113F4 Bypass Trachea to Cutaneous with Tracheostomy Device, Percutaneous Approach (ICD-10-PCS; 2021-01-28)
PROC: 0DH64UZ Insertion of Feeding Device into Stomach, Percutaneous Endoscopic Approach (ICD-10-PCS; 2021-01-28)
PROC: 0DW60UZ Revision of Feeding Device in Stomach, Open Approach (ICD-10-PCS; 2021-01-29)
PROC: 30233N1 Transfusion of Nonautologous Red Blood Cells into Peripheral Vein, Percutaneous Approach (ICD-10-PCS; 2021-01-31)
DX: U07.1 COVID-19 (principal); J12.82 Pneumonia due to coronavirus disease 2019; K65.9 Peritonitis, unspecified; J80 Acute respiratory distress syndrome; D62 Acute posthemorrhagic anemia; E83.41 Hypermagnesemia; K94.23 Gastrostomy malfunction; E66.01 Morbid (severe) obesity due to excess calories; B19.20 Unspecified viral hepatitis C without hepatic coma; M79.10 Myalgia, unspecified site; F41.9 Anxiety disorder, unspecified; R63.0 Anorexia; E03.9 Hypothyroidism, unspecified; I10 Essential (primary) hypertension; K80.20 Calculus of gallbladder without cholecystitis without obstruction; Z68.41 Body mass index [BMI] 40.0-44.9, adult; Z87.891 Personal history of nicotine dependence; Z79.899 Other long term (current) drug therapy; Z98.891 History of uterine scar from previous surgery; E87.6 Hypokalemia
CPT/HCPCS: 36415; 36430; 36573; 36600; 70450; 71045; 71275; 74018; 74176; 76010; 80048; 80053; 80202; 81001; 82800; 82803; 82948; 83036; 83605; 83615; 83735; 83880; 84100; 84132; 84134; 84145; 84443; 84478; 84484; 85007; 85008; 85018; 85025; 85027; 85379; 85610; 85730; 86140; 86885; 86900; 86901; 86920; 87040; 87070; 87081; 87088; 92950; 93306; 94002; 94003; 94640; 94660; 94760; 94799; 97110; 97116; 97161; 97164; 97530; 97535; A4215; A4218; A4618; A6402; A6449; A7000; A7521; B4087; C1751; C1758; C1894; C9113; G0378; J0692; J1100; J1120; J1450; J1490; J1644; J1650; J1815; J1940; J2020; J2060; J2250; J2543; J2704; J2765; J3010; J3262; J3370; J3480; J3490; J7030; J7120; J7626; P9016; P9045; P9047; Q9963; Q9967

== ENCOUNTER 2021-02-12 10:04 | Inpatient (IN) | payer MEDICAID ==
[~2021-02-12] VITALS: Ht 177.8 cm; Wt 109.2 kg
[2021-02-12] MEDS: famotidine/PF 10 mg/ml inj IV SCH
[~2021-02-12 10:04] MED LIST: ACET160O2 OGT; ALBU2.5V7 NEB; ALBU6.7H9 IH; AMLO2.5T2 PEG; BUDE0.5A3 IH; ENOX80DI13 SUBCUT; LEVO75TA7 OGT; LORA2VIA4 IV; MORP2CAR IV; MORP4CAR IV; NYSPWD TP; PIPE4.5F6 IV; [UNRECOGNIZED DRUG - CODE] IV
[2021-02-12 10:43] LABS: CLARITY,URINE CLOUDY (Clear); COLOR,URINE YELLOW (Yellow); GLUCOSE, URINE NEGATIVE (Neg); KETONES,URINE NEGATIVE (Neg); LEUKOCYTE ESTERASE ,URINE TRACE (Neg); NITRITES, URINE NEGATIVE (Neg); OCCULT BLOOD,URINE LARGE (Neg); PROTEIN,URINE 30 mg/dl (Neg); UA COLLECTION TYPE FOLEY CATH; UROBILINOGEN,URINE 0.2 E.U/dL (0.2-1.0)
[2021-02-12 10:50] LABS: AMORPHOUS URATES 2+; BACTERIA,URINE 1+ /HPF (Neg); MUCUS STRANDS NONE SEEN /LPF (Neg); RBC,URINE 20-50 /HPF (0-2); RENAL CELLS, URINE FEW /HPF; SQUAMOUS EPITHELIAL CELL,UR FEW /LPF (FEW); WBC CLUMPS,URINE FEW /HPF (NEGATIVE)
[2021-02-12] MEDS ORDERED: piperacillin/tazo 3.375gm/50ml 50 ML IV ONE (11:05)
[2021-02-12 11:39] LABS: BASOPHILS % (AUTO) 0.2 % (0-1); EOSINOPHILS # (AUTO) 0.2 X10'3 (0-0.9); EOSINOPHILS % (AUTO) 2.4 % (0-6); HEMATOCRIT 28.2 % (35.0-45.0); HEMOGLOBIN 8.9 g/dl (12.0-16.0); LYMPHOCYTES # (AUTO) 1.1 X10'3 (1.1-4.8); MEAN CORPUSCULAR HEMOGLOBIN 29.1 PG (27.0-31.0); MEAN CORPUSCULAR HGB CONC 31.7 g/dL (33.0-36.5); MEAN CORPUSCULAR VOLUME 91.9 FL (78-98); MONOCYTES # (AUTO) 0.4 X10'3 (0-0.9); NEUTROPHILS # (AUTO) 7.6 X10'3 (1.8-7.7); NEUTROPHILS % (AUTO) 81.4 % (42-75); PLATELET COUNT 206 X10'3 (140-440); RED BLOOD COUNT 3.07 X10'6 (4.20-5.60); RED CELL DISTRIBUTION WIDTH 23.4 % (11.5-14.5); WHITE BLOOD COUNT 9.3 X10'3 (4.5-11.0)
[2021-02-12 12:01] LABS: ALANINE AMINOTRANSFERASE 37 U/L (12-78); ALBUMIN 1.4 G/DL (3.4-5.0); ALBUMIN/GLOBULIN RATIO 0.3 (1.1-1.5); ALKALINE PHOSPHATASE 82 IU/L (46-116); ANION GAP 7 (8-16); ASPARTATE AMINO TRANSFERASE 43 U/L (10-37); BILIRUBIN,TOTAL 0.5 MG/DL (0.1-1.0); BLOOD UREA NITROGEN 61 MG/DL (7-18); BUN/CREATININE RATIO 52.6 (6.6-38.0); CALCIUM 7.4 MG/DL (8.5-10.1); CHLORIDE 114 MMOL/L (99-107); CREATININE 1.16 MG/DL (0.40-0.90); GLUCOSE 156 MG/DL (70-104); POTASSIUM 3.3 MMOL/L (3.5-5.1); SODIUM 149 MMOL/L (135-145); TOTAL CARBON DIOXIDE 28.2 MMOL/L (24-32); TOTAL PROTEIN 6.3 G/DL (6.4-8.2); eGFR 49 ML/MIN
[2021-02-12] MEDS ORDERED: iohexol 300mg/ml 100ml inj. ONE (12:09)
[2021-02-12 13:10] LABS: PLATELET ESTIMATE NORMAL
[2021-02-12 13:11] LABS: ANISOCYTOSIS 3+; HYPOCHROMASIA 1+; POLYCHROMASIA 1+; SCHISTOCYTES FEW
[2021-02-12] MEDS ORDERED: diatr meglu/diatrizoate 30ml oral sol.-(3 dose) bottle PO ONE (14:00)
[2021-02-12] MEDS ORDERED: diatrozoate meglu/diatrozoate sod (37% iodine) 120ML oral solution PO ONE (14:00)
[2021-02-12] MEDS ORDERED: ENOX40SY7 SQ (14:32)
[2021-02-12] MEDS ORDERED: BUDE0.5A3 NEB (14:35)
[2021-02-12] MEDS ORDERED: VANC1PLA9 IV (14:39)
[2021-02-12] MEDS ORDERED: LEVO75TA7 PEG (14:57)
[2021-02-12] MEDS ORDERED: INSU100V11 SQ (14:59)
[2021-02-12] MEDS ORDERED: magnesium hydroxide 30ml (MOM) UD suspension PO PRN (15:50)
[2021-02-12] MEDS ORDERED: ondansetron/PF 4mg/2ml inj IV PRN (15:50)
[2021-02-12] MEDS ORDERED: LIDOcaine 2% 10ml TOPICAL JELLY (Urojet) TP ONE (15:50)
[2021-02-12] MEDS ORDERED: acetaminophen 325mg tablet PO PRN ×2 (15:50)
[2021-02-12] MEDS ORDERED: potassium Cl 20 mEq SR tablet PO PRN ×2 (15:50)
[2021-02-12] MEDS ORDERED: potassium Cl 40MEQ/250ML bag 270 ML IV PRN ×2 (15:50)
[2021-02-12] MEDS ORDERED: potassium Cl 40MEQ/1/2NS 520ml 520 ML IV PRN ×2 (15:50)
[2021-02-12] MEDS ORDERED: LORazepam 2 mg/ml vial IV PRN (15:50)
[2021-02-12] MEDS ORDERED: albuterol 2.5 MG/3 ML nebule NEB PRN (15:50)
[2021-02-12] MEDS ORDERED: ipratropium/albuterol 3ml nebule NEB PRN (15:50)
[2021-02-12] MEDS ORDERED: HYDROcodone/acetaminophen 10/325mg tab PO PRN (15:50)
[2021-02-12] MEDS ORDERED: TAZOBACTAM IV SCH (16:00)
[2021-02-12] MEDS ORDERED: PIPERACILLIN IV SCH (16:00)
[2021-02-12] MEDS: fluconazole-Diflucan 200mg/NS 100 ML IV SCH (16:34)
[2021-02-12] MEDS: VANCOmycin 1250MG/NS 250ml Bag 250 ML IV SCH (17:44)
[2021-02-12] MEDS: budesonide 0.5mg/2ml UD nebule IH SCH (20:10)
[2021-02-12] MEDS: ipratropium/albuterol 3ml nebule NEB SCH ×2 (20:10→23:00)
[2021-02-12 20:29] LABS: ABG BASE EXCESS 3.9 mmol/L (-2.0-2.0); ABG HCO3 28.6 mmol/L (22.0-26.0); ABG OXYGEN SATURATION 94.1 % (94-97); ABG PCO2 (T) 42.9 mmHg (32.0-45.0); ABG PO2 (T) 67.7 mmHg (75.0-100.0); ALLEN'S TEST Modified; FCOHb 1.4 % (0.0-3.9); FMetHb 0.3 % (0.0-1.5); FO2Hb 92.5 % (94-97); PATIENT TEMPERATURE 36.8; PEEP 5 cm H2O; RESPIRATORY RATE 20 b/min; TIDAL VOLUME 350 mL; TOTAL HEMOGLOBIN 10.2 G/dl (12.0-16.0)
[2021-02-12 22:45] VITALS: BP 95/53
--- NOTE | 2021-02-12 22:45 | NUR ---
Received from ER via stretcher, on AC vent control mode with 35% FiO2 via #8.0 trach. Yellow odorless content draining from trach area. Open didier area under Left breast, on sacrum and inner right thigh. Multiple bruises to BUE and abdominal area. LUE with 3+ pitting edema. MADELINE drain to abdominal area, draining serous content around site. Peg tube to Left abdomen, draining yellowish content at site. Anthony dressing to abdominal area dry and intact, abdominal binder in place.
[2021-02-12 23:00] VITALS: BP 109/54
[2021-02-13] VITALS (12 sets, daily range): BP systolic 90–125; BP diastolic 46–73
[2021-02-13] MEDS: ipratropium/albuterol 3ml nebule NEB SCH ×4 (02:51→23:54)
[2021-02-13 03:15] LABS: ABG HCO3 29.3 mmol/L (22.0-26.0); ABG OXYGEN SATURATION 93.9 % (94-97); ABG PCO2 (T) 42.9 mmHg (32.0-45.0); ABG PO2 (T) 72.2 mmHg (75.0-100.0); ALLEN'S TEST Modified; FCOHb 1.1 % (0.0-3.9); FMetHb 0.1 % (0.0-1.5); FO2Hb 92.8 % (94-97); PATIENT TEMPERATURE 37.5; PEEP 5 cm H2O; RESPIRATORY RATE 20 b/min; TIDAL VOLUME 350 mL; TOTAL HEMOGLOBIN 9.4 G/dl (12.0-16.0)
--- NOTE | 2021-02-13 03:30 | NUR ---
RT during trach care notice large erosion area under trach area. Pictures taken.
[2021-02-13 03:50] LABS: BASOPHILS # (AUTO) 0.1 X10'3 (0-0.2); BASOPHILS % (AUTO) 0.7 % (0-1); EOSINOPHILS # (AUTO) 0.2 X10'3 (0-0.9); EOSINOPHILS % (AUTO) 2.1 % (0-6); HEMATOCRIT 27.7 % (35.0-45.0); HEMOGLOBIN 8.6 g/dl (12.0-16.0); LYMPHOCYTES # (AUTO) 1.6 X10'3 (1.1-4.8); LYMPHOCYTES % (AUTO) 16.3 % (21-51); MEAN CORPUSCULAR HEMOGLOBIN 28.4 PG (27.0-31.0); MEAN CORPUSCULAR VOLUME 91.5 FL (78-98); MEAN PLATELET VOLUME 9.3 FL (7.4-10.4); MONOCYTES # (AUTO) 0.6 X10'3 (0-0.9); MONOCYTES % (AUTO) 6.2 % (2-12); NEUTROPHILS # (AUTO) 7.4 X10'3 (1.8-7.7); NEUTROPHILS % (AUTO) 74.7 % (42-75); PLATELET COUNT 243 X10'3 (140-440); RED BLOOD COUNT 3.03 X10'6 (4.20-5.60); RED CELL DISTRIBUTION WIDTH 23.9 % (11.5-14.5); WHITE BLOOD COUNT 9.9 X10'3 (4.5-11.0)
[2021-02-13 04:19] LABS: ALANINE AMINOTRANSFERASE 47 U/L (12-78); ALBUMIN 1.5 G/DL (3.4-5.0); ALBUMIN/GLOBULIN RATIO 0.3 (1.1-1.5); ALKALINE PHOSPHATASE 86 IU/L (46-116); ANION GAP 9 (8-16); ASPARTATE AMINO TRANSFERASE 46 U/L (10-37); BILIRUBIN,TOTAL 0.5 MG/DL (0.1-1.0); BLOOD UREA NITROGEN 56 MG/DL (7-18); BUN/CREATININE RATIO 47.1 (6.6-38.0); CALCIUM 7.4 MG/DL (8.5-10.1); CHLORIDE 116 MMOL/L (99-107); CREATININE 1.19 MG/DL (0.40-0.90); GLUCOSE 98 MG/DL (70-104); MAGNESIUM 3.2 MG/DL (1.5-2.4); PHOSPHORUS 3.7 MG/DL (2.3-4.5); POTASSIUM 3.2 MMOL/L (3.5-5.1); SODIUM 154 MMOL/L (135-145); TOTAL CARBON DIOXIDE 29.5 MMOL/L (24-32); eGFR 47 ML/MIN
[2021-02-13] MEDS: VANCOmycin 1250MG/NS 250ml Bag 250 ML IV SCH ×3 (05:00→19:05)
[2021-02-13] MEDS: budesonide 0.5mg/2ml UD nebule IH SCH ×2 (07:42→20:01)
[2021-02-13] MEDS: fluconazole-Diflucan 200mg/NS 100 ML IV SCH (07:55)
[2021-02-13] MEDS: famotidine/PF 10 mg/ml inj IV SCH ×2 (07:55→22:00)
[2021-02-13] MEDS: amLODIPine 2.5mg tablet PEG SCH (08:00)
[2021-02-13] MEDS ORDERED: SOD CHLORIDE IV SCH (08:00)
[2021-02-13] MEDS ORDERED: fluconazole/NS 400mg/200ml bag 200 ML IV SCH (08:00)
[2021-02-13] MEDS: levoTHYROXINE 75mcg tablet PEG SCH (08:00)
[2021-02-13] MEDS: docusate sod 100mg capsule PO SCH ×3 (08:00→22:00)
[2021-02-13] MEDS ORDERED: [UNRECOGNIZED DRUG - OTHER] IV SCH (08:00)
[2021-02-13] MEDS ORDERED: VANCOMYCIN IV SCH (08:00)
[2021-02-13] MEDS: piperacillin/tazo 4.5gm/100ml IVPB IV SCH ×3 (08:39→16:00)
[2021-02-13] MEDS: dextrose 5%-water 1,000 ML IV SCH (09:30)
[2021-02-13] MEDS: diatr meglu/diatrizoate 30ml oral sol.-(3 dose) bottle PO SCH ×2 (10:30→22:00)
--- NOTE | 2021-02-13 10:45 | NUR ---
TPN consult: Pt admit for wound dehiscence of abdominal surgical wound and cholelithiasis. Per MD note pt with sepsis. Pt intubated with trach and has a G-tube however pt to be NPO and start TPN per MD as G-tube is leaking. Noted pt documented as 70" though was 64" at recent admit. TC to RN who confirms pt is more likely 64". Noted current documented wt isn't scaled. Most recent scaled wt in EMR is 114.1 kg taken 02/05, resulting in BMI of 43.2. TPN at goal rate will not meet patient's estimated protein needs using IBW +10% given morbid obesity and increased protein needs r/t intubation, sepsis, and wound healing. Per RN pt with a PICC line in place. TPN recommendations below have been d/w clinical pharmacist. Will monitor electrolytes and need to change to non-electrolyte formula. LBM 02/12, documented with 700 mL stool output from rectal tube. Will continue to follow closely. Recommendations: 1) Continuous TPN per MD using 2:1 Clinimix-E 5/ with goal rate of 94 mL/hr with 100 mL 20% intralipids to run at 8.33 mL/hr for 12 hours/day. In total to provide 2356 mL total volume/day, 1802 kcal, 113 g AA (94% EPN), 338 g dext (2.06 mg/kg/min dext load using recent scaled wt of 114.1 kg), and 20 g lipids. Will NOT meet estimated protein needs 2) IF electrolytes are elevated and need to switch to non-E formula, given no Clinimix non-E 5/15 available, 2:1 Climinix non-E / with goal rate of 75 mL/hr with 100 mL 20% intralipids to run at 8.33 mL/hr for 12 hours/day. In total to provide 1900 mL total volume/day, 90 g AA (75% EPN), 360 g dext (2.18 mg/kg/min dext load using recent scaled wt of 114.1 kg), and 20 g lipids. Will NOT meet estimated protein needs 3) Prealbumin and TG q Monday/ 4) Daily scaled weights 5) IF okay to use G-tube, continuous Vital High Protein with goal rate of 70 mL/hr 6) Bowel care per rx Addendum: 02/13/21 at [address] Amended: Links added.
[2021-02-13] MEDS ORDERED: Dextrose 10%-water IV solution 1,000 ML IV PRN (13:25)
[2021-02-13 16:41] LABS: ALANINE AMINOTRANSFERASE 44 U/L (12-78); ALBUMIN 1.6 G/DL (3.4-5.0); ALBUMIN/GLOBULIN RATIO 0.3 (1.1-1.5); ALKALINE PHOSPHATASE 99 IU/L (46-116); ANION GAP 7 (8-16); ASPARTATE AMINO TRANSFERASE 50 U/L (10-37); BILIRUBIN,TOTAL 0.5 MG/DL (0.1-1.0); BLOOD UREA NITROGEN 57 MG/DL (7-18); BUN/CREATININE RATIO 43.2 (6.6-38.0); CALCIUM 7.5 MG/DL (8.5-10.1); CHLORIDE 117 MMOL/L (99-107); CREATININE 1.32 MG/DL (0.40-0.90); GLUCOSE 124 MG/DL (70-104); MAGNESIUM 3.2 MG/DL (1.5-2.4); PHOSPHORUS 4.5 MG/DL (2.3-4.5); PREALBUMIN 11.5 MG/DL (19-36); TOTAL CARBON DIOXIDE 30.9 MMOL/L (24-32); TOTAL PROTEIN 6.4 G/DL (6.4-8.2); TRIGLYCERIDES 172 MG/DL (20-135); eGFR 42 ML/MIN
[2021-02-13 16:46] LABS: SODIUM 155 MMOL/L (135-145)
[2021-02-13] MEDS: ZINC/COPPER/MANGANESE/SELENIUM 1 ML, chromic chloride inj. 10 MCG in AA 5%/cal/electrol... IV SCH (18:58)
[2021-02-13] MEDS: mineral oil/petrolatum ophthal oint EACHEYE SCH (20:00)
[2021-02-13] MEDS ORDERED: diatr meglu/diatrizoate 30ml oral sol.-(3 dose) bottle PO SCH (21:00)
[2021-02-13] MEDS: sennosides/docusate sodium tablet PO SCH ×2 (22:00)
[2021-02-13] MEDS: lactobacillus rhamnosus 10,000 MMU CELLS/CAPSULE PO SCH (22:00)
[2021-02-14] VITALS (26 sets, daily range): BP systolic 95–130; BP diastolic 57–74
[2021-02-14] MEDS: piperacillin/tazo 4.5gm/100ml IVPB IV SCH ×3 (00:40→16:17)
[2021-02-14] MEDS: mineral oil/petrolatum ophthal oint EACHEYE SCH ×4 (02:00→20:46)
[2021-02-14] MEDS: ipratropium/albuterol 3ml nebule NEB SCH ×5 (03:53→20:53)
[2021-02-14] MEDS: dextrose 5%-water 1,000 ML IV SCH (03:54)
[2021-02-14 03:55] LABS: BASOPHILS # (AUTO) 0.1 X10'3 (0-0.2); BASOPHILS % (AUTO) 0.8 % (0-1); EOSINOPHILS # (AUTO) 0.2 X10'3 (0-0.9); EOSINOPHILS % (AUTO) 2.8 % (0-6); HEMATOCRIT 29.8 % (35.0-45.0); HEMOGLOBIN 9.4 g/dl (12.0-16.0); LYMPHOCYTES # (AUTO) 0.9 X10'3 (1.1-4.8); LYMPHOCYTES % (AUTO) 12.3 % (21-51); MEAN CORPUSCULAR HEMOGLOBIN 29.4 PG (27.0-31.0); MEAN CORPUSCULAR HGB CONC 31.5 g/dL (33.0-36.5); MEAN CORPUSCULAR VOLUME 93.2 FL (78-98); MEAN PLATELET VOLUME 8.8 FL (7.4-10.4); MONOCYTES # (AUTO) 0.4 X10'3 (0-0.9); MONOCYTES % (AUTO) 5.4 % (2-12); NEUTROPHILS % (AUTO) 78.7 % (42-75); PLATELET COUNT 218 X10'3 (140-440); RED CELL DISTRIBUTION WIDTH 24.8 % (11.5-14.5); WHITE BLOOD COUNT 7.7 X10'3 (4.5-11.0)
[2021-02-14 04:02] LABS: ALANINE AMINOTRANSFERASE 42 U/L (12-78); ALBUMIN 1.5 G/DL (3.4-5.0); ALBUMIN/GLOBULIN RATIO 0.3 (1.1-1.5); ALKALINE PHOSPHATASE 84 IU/L (46-116); ANION GAP 9 (8-16); ASPARTATE AMINO TRANSFERASE 44 U/L (10-37); BILIRUBIN,TOTAL 0.5 MG/DL (0.1-1.0); BLOOD UREA NITROGEN 47 MG/DL (7-18); BUN/CREATININE RATIO 41.2 (6.6-38.0); CALCIUM 7.3 MG/DL (8.5-10.1); CHLORIDE 115 MMOL/L (99-107); CREATININE 1.14 MG/DL (0.40-0.90); GLUCOSE 183 MG/DL (70-104); POTASSIUM 3.2 MMOL/L (3.5-5.1); SODIUM 152 MMOL/L (135-145); TOTAL CARBON DIOXIDE 28.4 MMOL/L (24-32); TOTAL PROTEIN 6.1 G/DL (6.4-8.2); eGFR 50 ML/MIN
[2021-02-14 04:14] LABS: PHOSPHORUS 4.1 MG/DL (2.3-4.5)
[2021-02-14 04:19] LABS: VANCOMYCIN,TROUGH 44.9 UG/ML (6.0-14.0)
[2021-02-14] MEDS ORDERED: VANCOMYCIN LEVEL IV ONE (04:30)
[2021-02-14] MEDS: VANCOmycin 1250MG/NS 250ml Bag 250 ML IV SCH (05:22)
[2021-02-14] MEDS: budesonide 0.5mg/2ml UD nebule IH SCH ×2 (07:31→20:53)
[2021-02-14] MEDS ORDERED: MVI, adult No.4 with vit. K 10 ML in dextrose 5% water 500ml 500 ML IV SCH ×2 (08:00)
[2021-02-14] MEDS: famotidine/PF 10 mg/ml inj IV SCH ×2 (08:01→20:44)
[2021-02-14] MEDS: diatr meglu/diatrizoate 30ml oral sol.-(3 dose) bottle PO SCH (08:01)
[2021-02-14] MEDS: levoTHYROXINE 75mcg tablet PEG SCH (08:02)
[2021-02-14] MEDS: amLODIPine 2.5mg tablet PEG SCH (08:02)
[2021-02-14] MEDS: docusate sod 100mg capsule PO SCH ×2 (08:03→20:45)
[2021-02-14] MEDS: lactobacillus rhamnosus 10,000 MMU CELLS/CAPSULE PO SCH ×2 (08:03→20:45)
[2021-02-14] MEDS: fluconazole-Diflucan 200mg/NS 100 ML IV SCH (08:04)
[2021-02-14] MEDS ORDERED: diatr meglu/diatrizoate 30ml oral sol.-(3 dose) bottle PO ONE (10:55)
--- NOTE | 2021-02-14 18:37 | NUR ---
Problems reprioritized. Patient report given, questions answered & plan of care reviewed with Adelaida QUINTANA.
[2021-02-14] MEDS: sennosides/docusate sodium tablet PO SCH (20:45)
[2021-02-14] MEDS: morphine 2 MG/ML inj. syringe IV PRN (20:58)
[2021-02-15] VITALS (21 sets, daily range): BP systolic 86–116; BP diastolic 46–74
[2021-02-15] MEDS: ipratropium/albuterol 3ml nebule NEB SCH ×7 (00:10→23:34)
[2021-02-15] MEDS: mineral oil/petrolatum ophthal oint EACHEYE SCH ×4 (02:00→19:35)
[2021-02-15] MEDS ORDERED: VANCOMYCIN LEVEL IV ONE (03:00)
[2021-02-15 04:31] LABS: BASOPHILS # (AUTO) 0.1 X10'3 (0-0.2); BASOPHILS % (AUTO) 0.7 % (0-1); EOSINOPHILS # (AUTO) 0.3 X10'3 (0-0.9); EOSINOPHILS % (AUTO) 3.6 % (0-6); HEMATOCRIT 26.5 % (35.0-45.0); HEMOGLOBIN 8.2 g/dl (12.0-16.0); LYMPHOCYTES # (AUTO) 1.3 X10'3 (1.1-4.8); LYMPHOCYTES % (AUTO) 16.1 % (21-51); MEAN CORPUSCULAR HEMOGLOBIN 28.8 PG (27.0-31.0); MEAN CORPUSCULAR VOLUME 92.8 FL (78-98); MEAN PLATELET VOLUME 8.4 FL (7.4-10.4); MONOCYTES # (AUTO) 0.5 X10'3 (0-0.9); MONOCYTES % (AUTO) 6.3 % (2-12); NEUTROPHILS # (AUTO) 5.8 X10'3 (1.8-7.7); NEUTROPHILS % (AUTO) 73.3 % (42-75); PLATELET COUNT 204 X10'3 (140-440); RED BLOOD COUNT 2.85 X10'6 (4.20-5.60); RED CELL DISTRIBUTION WIDTH 24.4 % (11.5-14.5); WHITE BLOOD COUNT 7.9 X10'3 (4.5-11.0)
[2021-02-15] MEDS: ZINC/COPPER/MANGANESE/SELENIUM 1 ML, chromic chloride inj. 10 MCG in AA 5%/cal/electrol... IV SCH (04:35)
[2021-02-15 04:40] LABS: ALANINE AMINOTRANSFERASE 36 U/L (12-78); ALBUMIN 1.4 G/DL (3.4-5.0); ALBUMIN/GLOBULIN RATIO 0.3 (1.1-1.5); ALKALINE PHOSPHATASE 71 IU/L (46-116); ANION GAP 8 (8-16); ASPARTATE AMINO TRANSFERASE 27 U/L (10-37); BILIRUBIN,TOTAL 0.4 MG/DL (0.1-1.0); BLOOD UREA NITROGEN 39 MG/DL (7-18); BUN/CREATININE RATIO 33.1 (6.6-38.0); CALCIUM 7.5 MG/DL (8.5-10.1); CHLORIDE 115 MMOL/L (99-107); CREATININE 1.18 MG/DL (0.40-0.90); GLUCOSE 143 MG/DL (70-104); MAGNESIUM 2.7 MG/DL (1.5-2.4); PHOSPHORUS 3.8 MG/DL (2.3-4.5); PREALBUMIN 9.7 MG/DL (19-36); SODIUM 152 MMOL/L (135-145); TOTAL CARBON DIOXIDE 28.8 MMOL/L (24-32); TOTAL PROTEIN 5.7 G/DL (6.4-8.2); TRIGLYCERIDES 148 MG/DL (20-135); VANCOMYCIN,RANDOM 37.7 UG/ML; eGFR 48 ML/MIN
--- NOTE | 2021-02-15 05:04 | NUR ---
Patient current K 3.0. Per rounding . Okay to replace K+ with with only 1 bag of 40mEQ KCL\250ml. Then repeat K+ level during the day. fly frame tender aware. Will pass information to day shift nurse.
[2021-02-15] MEDS: morphine 2 MG/ML inj. syringe IV PRN (05:55)
--- NOTE | 2021-02-15 06:19 | NUR ---
Problems reprioritized. Patient report given, questions answered & plan of care reviewed with LILIAN Mott.
--- NOTE | 2021-02-15 06:30 | NUR ---
Received report from LILIAN Garcia
[2021-02-15] MEDS: levoTHYROXINE 75mcg tablet PEG SCH (06:50)
[2021-02-15] MEDS: amLODIPine 2.5mg tablet PEG SCH (06:50)
[2021-02-15] MEDS: docusate sod 100mg capsule PO SCH (06:50)
[2021-02-15] MEDS: lactobacillus rhamnosus 10,000 MMU CELLS/CAPSULE PO SCH (06:50)
[2021-02-15] MEDS: budesonide 0.5mg/2ml UD nebule IH SCH ×2 (07:59→20:34)
[2021-02-15] MEDS: famotidine/PF 10 mg/ml inj IV SCH ×2 (08:00→19:33)
[2021-02-15] MEDS: fluconazole-Diflucan 200mg/NS 100 ML IV SCH (08:00)
[2021-02-15] MEDS: piperacillin/tazo 4.5gm/100ml IVPB IV SCH ×3 (08:00→17:30)
[2021-02-15] MEDS ORDERED: apixaban 5mg tablet PO SCH (10:49)
--- NOTE | 2021-02-15 11:16 | NUR ---
TF consult: Pt remains intubated and receiving TPN at goal. Per [place] [employer], PEG okay to use, see recs below. Recommend titrate down TPN once pt able to tolerate TF at half goal rate. Recommendations: 1) Continuous TF using Vital High Protein with goal rate of 70 mL/hr providing 1680ml volume, 1680kcals, 147g protein, 1405ml free water. 2) Additional water flush 200ml Q4H 3) IF out of Vital HP, sub Vital AF at 60ml/hr providing 1440ml volume, 1728kcals, 108g protein, 1168ml free water 4) Taper TPN once tolerating TF at half goal rate; TPN per MD using 2:1 Clinimix-E 08/15 with goal rate of 94 mL/hr with 100 mL 20% intralipids to run at 8.33 mL/hr for 12 hours/day. In total to provide 2356 mL total volume/day, 1802 kcal, 113 g AA (94% EPN), 338 g dext (2.06 mg/kg/min dext load using recent scaled wt of 114.1 kg), and 20 g lipids. Will NOT meet estimated protein needs 5) Prealbumin and TG q Monday/ 6) Daily scaled weights 7) Bowel care per rx Addendum: 02/15/21 at [address] Amended: Links added.
[2021-02-15] MEDS: morphine 4 MG/ML inj SYRINge IV PRN (13:20)
[2021-02-15] MEDS ORDERED: acetaminophen 325mg tablet PEG PRN ×2 (16:21→16:22)
[2021-02-15] MEDS ORDERED: potassium Cl 20 mEq SR tablet PEG PRN ×2 (16:24)
[2021-02-15] MEDS ORDERED: magnesium hydroxide 30ml (MOM) UD suspension PEG PRN (16:24)
--- NOTE | 2021-02-15 18:10 | NUR ---
Patient in room ICU 2042. I have received report from LILIAN Mott and had the opportunity to ask questions and assume patient care.
--- NOTE | 2021-02-15 18:25 | NUR ---
Report given to LILIAN Garcia
[2021-02-15] MEDS: sennosides/docusate sodium tablet PEG SCH (19:34)
[2021-02-15] MEDS: lactobacillus rhamnosus 10,000 MMU CELLS/CAPSULE PEG SCH (19:34)
[2021-02-15] MEDS: apixaban 5mg tablet PEG SCH (19:34)
[2021-02-15] MEDS: docusate sodium 100mg/10ml UD cup PEG SCH (19:47)
[2021-02-15] MEDS: NYSTATIN CREAM - 30GM TUBE TP SCH (19:47)
--- NOTE | 2021-02-15 22:48 | NUR ---
Patient's [facility] called unit and was updated about patient condition.
[2021-02-16] VITALS (24 sets, daily range): BP systolic 91–118; BP diastolic 43–69
[2021-02-16] MEDS: piperacillin/tazo 4.5gm/100ml IVPB IV SCH ×4 (00:27→23:55)
[2021-02-16] MEDS: mineral oil/petrolatum ophthal oint EACHEYE SCH ×4 (02:00→20:08)
[2021-02-16] MEDS ORDERED: VANCOMYCIN LEVEL IV ONE (03:00)
--- NOTE | 2021-02-16 03:00 | NUR ---
CTF INCREASED BY 25ML/HR. GOAL 70
[2021-02-16 03:08] LABS: BASOPHILS # (AUTO) 0.1 X10'3 (0-0.2); BASOPHILS % (AUTO) 0.8 % (0-1); EOSINOPHILS # (AUTO) 0.3 X10'3 (0-0.9); EOSINOPHILS % (AUTO) 3.6 % (0-6); HEMATOCRIT 23.3 % (35.0-45.0); HEMOGLOBIN 7.2 g/dl (12.0-16.0); LYMPHOCYTES # (AUTO) 1.2 X10'3 (1.1-4.8); LYMPHOCYTES % (AUTO) 16.7 % (21-51); MEAN CORPUSCULAR HEMOGLOBIN 29.3 PG (27.0-31.0); MEAN CORPUSCULAR HGB CONC 30.8 g/dL (33.0-36.5); MEAN PLATELET VOLUME 8.3 FL (7.4-10.4); MONOCYTES # (AUTO) 0.4 X10'3 (0-0.9); MONOCYTES % (AUTO) 5.2 % (2-12); NEUTROPHILS # (AUTO) 5.2 X10'3 (1.8-7.7); NEUTROPHILS % (AUTO) 73.7 % (42-75); PLATELET COUNT 168 X10'3 (140-440); RED BLOOD COUNT 2.45 X10'6 (4.20-5.60); RED CELL DISTRIBUTION WIDTH 25.6 % (11.5-14.5)
[2021-02-16 03:33] LABS: ANION GAP 14 (8-16); BILIRUBIN,TOTAL 0.4 MG/DL (0.1-1.0); BLOOD UREA NITROGEN 40 MG/DL (7-18); BUN/CREATININE RATIO 30.3 (6.6-38.0); CALCIUM 6.8 MG/DL (8.5-10.1); CHLORIDE 108 MMOL/L (99-107); CREATININE 1.32 MG/DL (0.40-0.90); GLUCOSE 247 MG/DL (70-104); MAGNESIUM 2.4 MG/DL (1.5-2.4); PHOSPHORUS 4.2 MG/DL (2.3-4.5); SODIUM 146 MMOL/L (135-145); TOTAL CARBON DIOXIDE 24.1 MMOL/L (24-32); eGFR 42 ML/MIN
[2021-02-16 03:34] LABS: ALANINE AMINOTRANSFERASE 23 U/L (12-78); ALBUMIN 1.1 G/DL (3.4-5.0); ALBUMIN/GLOBULIN RATIO 0.3 (1.1-1.5); ALKALINE PHOSPHATASE 61 IU/L (46-116); ASPARTATE AMINO TRANSFERASE 23 U/L (10-37); TOTAL PROTEIN 5.4 G/DL (6.4-8.2); VANCOMYCIN,RANDOM 22.6 UG/ML
[2021-02-16 03:36] LABS: POTASSIUM 2.9 MMOL/L (3.5-5.1)
[2021-02-16] MEDS: ipratropium/albuterol 3ml nebule NEB SCH ×6 (03:58→23:18)
[2021-02-16 04:24] LABS: ANISOCYTOSIS 3+; PLATELET ESTIMATE NORMAL
[2021-02-16 04:26] LABS: LARGE PLATELETS FEW
[2021-02-16] MEDS: morphine 2 MG/ML inj. syringe IV PRN (04:49)
--- NOTE | 2021-02-16 06:11 | NUR ---
Problems reprioritized. Patient report given, questions answered & plan of care reviewed with LILIAN HUNTER.
[2021-02-16] MEDS: morphine 4 MG/ML inj SYRINge IV PRN ×2 (06:58→13:47)
[2021-02-16] MEDS: amLODIPine 2.5mg tablet PEG SCH (07:02)
[2021-02-16] MEDS: budesonide 0.5mg/2ml UD nebule IH SCH ×2 (07:20→19:59)
[2021-02-16] MEDS: docusate sodium 100mg/10ml UD cup PEG SCH ×3 (08:00→20:00)
[2021-02-16] MEDS: fluconazole-Diflucan 200mg/NS 100 ML IV SCH (08:30)
[2021-02-16] MEDS: apixaban 5mg tablet PEG SCH ×2 (08:30→20:08)
[2021-02-16] MEDS: famotidine/PF 10 mg/ml inj IV SCH ×2 (08:30→20:08)
[2021-02-16] MEDS: levoTHYROXINE 75mcg tablet PEG SCH (08:31)
[2021-02-16] MEDS: lactobacillus rhamnosus 10,000 MMU CELLS/CAPSULE PEG SCH ×2 (08:31→20:08)
[2021-02-16] MEDS: NYSTATIN CREAM - 30GM TUBE TP SCH ×2 (08:32→20:10)
[2021-02-16 08:58] LABS: BASOPHILS % (AUTO) 0.6 % (0-1); EOSINOPHILS # (AUTO) 0.3 X10'3 (0-0.9); EOSINOPHILS % (AUTO) 3.7 % (0-6); HEMATOCRIT 27.3 % (35.0-45.0); HEMOGLOBIN 8.3 g/dl (12.0-16.0); LYMPHOCYTES # (AUTO) 1.8 X10'3 (1.1-4.8); MEAN CORPUSCULAR HEMOGLOBIN 29.4 PG (27.0-31.0); MEAN CORPUSCULAR HGB CONC 30.4 g/dL (33.0-36.5); MEAN CORPUSCULAR VOLUME 96.7 FL (78-98); MEAN PLATELET VOLUME 8.6 FL (7.4-10.4); MONOCYTES # (AUTO) 0.5 X10'3 (0-0.9); MONOCYTES % (AUTO) 6.1 % (2-12); NEUTROPHILS # (AUTO) 5.8 X10'3 (1.8-7.7); NEUTROPHILS % (AUTO) 68.6 % (42-75); PLATELET COUNT 178 X10'3 (140-440); RED BLOOD COUNT 2.82 X10'6 (4.20-5.60); RED CELL DISTRIBUTION WIDTH 26.8 % (11.5-14.5); WHITE BLOOD COUNT 8.5 X10'3 (4.5-11.0)
[2021-02-16 09:51] LABS: ANISOCYTOSIS 3+; PLATELET ESTIMATE NORMAL
[2021-02-16 09:52] LABS: MICROCYTOSIS 1+
[2021-02-16] MEDS: VANCOMYCIN 750MG IV in NS 250 ML IV SCH (15:36)
[2021-02-16] MEDS ORDERED: dexamethasone 4mg/ml inj IV SCH (16:00)
[2021-02-16 19:33] LABS: ALBUMIN 1.4 G/DL (3.4-5.0); ANION GAP 8 (8-16); BLOOD UREA NITROGEN 45 MG/DL (7-18); BUN/CREATININE RATIO 31.7 (6.6-38.0); CALCIUM 7.7 MG/DL (8.5-10.1); CHLORIDE 114 MMOL/L (99-107); CREATININE 1.42 MG/DL (0.40-0.90); GLUCOSE 192 MG/DL (70-104); POTASSIUM 4.2 MMOL/L (3.5-5.1); SODIUM 150 MMOL/L (135-145); TOTAL CARBON DIOXIDE 28.2 MMOL/L (24-32); eGFR 39 ML/MIN
[2021-02-16] MEDS: sennosides/docusate sodium tablet PEG SCH (21:00)
[2021-02-17] VITALS (10 sets, daily range): BP systolic 79–107; BP diastolic 44–67
[2021-02-17] MEDS: mineral oil/petrolatum ophthal oint EACHEYE SCH ×2 (02:00→08:00)
[2021-02-17] MEDS: ipratropium/albuterol 3ml nebule NEB SCH ×3 (03:08→10:35)
[2021-02-17 03:20] LABS: BASOPHILS # (AUTO) 0.1 X10'3 (0-0.2); BASOPHILS % (AUTO) 0.9 % (0-1); EOSINOPHILS # (AUTO) 0.2 X10'3 (0-0.9); EOSINOPHILS % (AUTO) 2.4 % (0-6); HEMATOCRIT 25.2 % (35.0-45.0); HEMOGLOBIN 7.6 g/dl (12.0-16.0); LYMPHOCYTES # (AUTO) 1.5 X10'3 (1.1-4.8); MEAN CORPUSCULAR HEMOGLOBIN 29.2 PG (27.0-31.0); MEAN CORPUSCULAR VOLUME 97.4 FL (78-98); MEAN PLATELET VOLUME 8.3 FL (7.4-10.4); MONOCYTES # (AUTO) 0.6 X10'3 (0-0.9); MONOCYTES % (AUTO) 6.8 % (2-12); NEUTROPHILS # (AUTO) 6.2 X10'3 (1.8-7.7); NEUTROPHILS % (AUTO) 71.9 % (42-75); PLATELET COUNT 174 X10'3 (140-440); RED BLOOD COUNT 2.59 X10'6 (4.20-5.60); RED CELL DISTRIBUTION WIDTH 26.1 % (11.5-14.5); WHITE BLOOD COUNT 8.6 X10'3 (4.5-11.0)
[2021-02-17 03:32] LABS: ALANINE AMINOTRANSFERASE 26 U/L (12-78); ALBUMIN 1.4 G/DL (3.4-5.0); ALBUMIN/GLOBULIN RATIO 0.3 (1.1-1.5); ALKALINE PHOSPHATASE 76 IU/L (46-116); ANION GAP 6 (8-16); ASPARTATE AMINO TRANSFERASE 25 U/L (10-37); BILIRUBIN,TOTAL 0.4 MG/DL (0.1-1.0); BLOOD UREA NITROGEN 44 MG/DL (7-18); CALCIUM 7.7 MG/DL (8.5-10.1); CHLORIDE 112 MMOL/L (99-107); CREATININE 1.57 MG/DL (0.40-0.90); GLUCOSE 176 MG/DL (70-104); MAGNESIUM 2.6 MG/DL (1.5-2.4); PHOSPHORUS 6.5 MG/DL (2.3-4.5); POTASSIUM 4.1 MMOL/L (3.5-5.1); SODIUM 146 MMOL/L (135-145); TOTAL CARBON DIOXIDE 27.6 MMOL/L (24-32); eGFR 34 ML/MIN
[2021-02-17 04:42] LABS: MICROCYTOSIS FEW; PLATELET ESTIMATE NORMAL
[2021-02-17 04:43] LABS: ANISOCYTOSIS 3+; POLYCHROMASIA FEW
[2021-02-17] MEDS: VANCOMYCIN 750MG IV in NS 250 ML IV SCH (04:49)
[2021-02-17] MEDS ORDERED: ringers solution, lacted 1,000 ML IV ONE (05:35)
--- NOTE | 2021-02-17 06:30 | NUR ---
Patient in room ICU 2042. I have received report from Laura QUINTANA and had the opportunity to ask questions and assume patient care.
[2021-02-17] MEDS: budesonide 0.5mg/2ml UD nebule IH SCH (07:34)
[2021-02-17] MEDS: famotidine/PF 10 mg/ml inj IV SCH (07:34)
[2021-02-17] MEDS: apixaban 5mg tablet PEG SCH (07:35)
[2021-02-17] MEDS: levoTHYROXINE 75mcg tablet PEG SCH (07:35)
[2021-02-17] MEDS: lactobacillus rhamnosus 10,000 MMU CELLS/CAPSULE PEG SCH (07:35)
[2021-02-17] MEDS: amLODIPine 2.5mg tablet PEG SCH (07:36)
[2021-02-17] MEDS: NYSTATIN CREAM - 30GM TUBE TP SCH (08:00)
[2021-02-17] MEDS: fluconazole-Diflucan 200mg/NS 100 ML IV SCH (08:00)
[2021-02-17] MEDS: piperacillin/tazo 4.5gm/100ml IVPB IV SCH (09:55)
--- NOTE | 2021-02-17 10:08 | NUR ---
Linen Change Pt with frequent cough, leaked around rectal tube requiring linen change & cleaning. Bottom excoriated, cleaned and cream applied. Vac
--- NOTE | 2021-02-17 13:38 | NUR ---
Transfer Medic, EMT and trainee preped and took pt to [facility]. IV's stopped, O2 changed to mask over trach, Wound vac was intact on IV pole and rectal tube remained in place. Pt condition stable on transfer. No belongings were identified in pts room at transfer.
[2021-02-18] MEDS ORDERED: VANCOMYCIN LEVEL IV ONE (02:30)
== END 2021-02-17 13:35 | DRG 813 ==
LOC: ER 10:05 → ED HOLD 15:56 → EDBEDREQ 18:19 → ICU 2S 22:12
PROVIDERS: ADMIT Internal Medicine Critical Care Medicine; ATTEND Internal Medicine Critical Care Medicine
PROC: BW211ZZ Computerized Tomography (CT Scan) of Abdomen and Pelvis using Low Osmolar Contrast (ICD-10-PCS; principal; 2021-02-12)
PROC: 5A1955Z Respiratory Ventilation, Greater than 96 Consecutive Hours (ICD-10-PCS; 2021-02-12)
DX: T81.31XA Disruption of external operation (surgical) wound, not elsewhere classified, initial encounter (principal); I26.99 Other pulmonary embolism without acute cor pulmonale; J96.01 Acute respiratory failure with hypoxia; J96.02 Acute respiratory failure with hypercapnia; A41.9 Sepsis, unspecified organism; E46 Unspecified protein-calorie malnutrition; K94.23 Gastrostomy malfunction; Z93.0 Tracheostomy status; I10 Essential (primary) hypertension; K43.9 Ventral hernia without obstruction or gangrene; E03.9 Hypothyroidism, unspecified; K80.80 Other cholelithiasis without obstruction; R53.81 Other malaise; Z68.34 Body mass index [BMI] 34.0-34.9, adult; T81.41XA Infection following a procedure, superficial incisional surgical site, initial encounter; Z86.16 Personal history of COVID-19; Z87.01 Personal history of pneumonia (recurrent); Z79.899 Other long term (current) drug therapy; Y92.89 Other specified places as the place of occurrence of the external cause; Z79.51 Long term (current) use of inhaled steroids; Z98.891 History of uterine scar from previous surgery; Z87.891 Personal history of nicotine dependence; Y83.3 Surgical operation with formation of external stoma as the cause of abnormal reaction of the patient, or of later complication, without mention of misadventure at the time of the procedure
CPT/HCPCS: 36415; 36600; 71045; 74018; 74176; 74177; 74246; 80048; 80053; 80202; 81001; 82803; 82948; 83605; 83735; 84100; 84132; 84134; 84145; 84478; 85008; 85018; 85025; 86885; 86900; 86901; 87040; 87070; 87088; 93005; 94002; 94003; 94640; 94760; 94799; 96365; 97110; 97161; 99285; G0378; J1450; J2060; J2270; J2543; J3370; J3480; J3490; J7050; J7060; J7070; J7120; J7626; Q9963; Q9967